=== PATIENT | female | born 1950 | race Caucasian/White ===

== ENCOUNTER → 2017-10-22 08:45 | Outpatient (CLI) | payer OTHER, SELFPAY ==
--- NOTE | 2017-10-26 16:16 | PM.PFT.1 ---
Pulmonary Function Test Referral & Results Date Patient Seen: 10/22/17 Requesting provider: Rodger Castillo Indication: Wheezing Results: The spirometry demonstrates an FVC of 1.95 L which is 65% of predicted. The FEV1 was measured at 1.30 L which is 57% of predicted. The FEV1/FVC ratio was 67 which is 80% of predicted. Following the administration of bronchodilator there was a 33% improvement in FEV1 and a 105% improvement in FEF 25-75% . Lung volumes show an SVC of 2.5 L which is 100% of predicted. The diffusing capacity was measured at 26.35 which is 111% of predicted. The maximum voluntary ventilation was reduced. Interpretation: This study demonstrates moderate obstructive lung disease with some evidence of benefit following bronchodilator particularly in small airway flow.
== END ==
PROVIDERS: Family Provider Family Medicine; PCP Family Medicine; Visit Provider Nurse Practitioner Family
DX: R06.02 Shortness of breath (principal); R06.2 Wheezing
CPT/HCPCS: 94010; 94060; 94726; 94729

== ENCOUNTER 2017-12-21 07:28 | Emergency (ER) | payer OTHER, SELFPAY ==
[2017-12-21] VITALS (9 sets, daily range): BP systolic 103–142; BP diastolic 56–99; PULSE 60–152; RESP 15–24; TEMP 36.8; O2SAT 95–100
--- NOTE | 2017-12-21 07:29 | ED.ARRPALP ---
HPI - Arrhythmia/Palpitations General Chief Complaint: Arrhythmia/Palpitations Stated Complaint: arrythmia issues Time Seen by Provider: 12/21/17 07:28 Source: patient Mode of arrival: ambulatory Limitations: no limitations History of Present Illness HPI narrative: 67-year-old female with history of asthma here for evaluation of palpitations. Patient states that 2 times in the past she has had similar symptoms was diagnosed with atrial fibrillation. She states that at those times she was given ?medicines through the IV ?that resolved her symptoms. She states she has never been admitted to the hospital for the symptoms. She states that this morning she woke up and took her dog for a walk. She states that this was unremarkable. Did not have any chest pain or shortness of breath or weakness or fatigue. She states that she got home and sat down on the couch and very shortly after that she started feeling the palpitations. Denies any chest pain or shortness of breath currently. Does take metoprolol at home for the atrial fibrillation prescribed by her port surveyor. She did take her metoprolol this morning. Related Data Home Medications Medication Instructions Recorded Confirmed COENZYME Q10 (COQ10) 150 mg PO Q DAY #0 03/28/12 11/02/17 Methylcobalamin (#[id number]) 1,000 mcg PO Q DAY #0 03/28/12 11/02/17 albuterol sulfate [Proventil HFA] 1 puff IH Q4HP PRN 12/21/17 12/21/17 Previous Rx's Medication Instructions Recorded fluticasone 44 mcg/actuation HFA 2 inhalation INHALATION Q12H #10.6 11/02/17 aerosol inhaler gram metoprolol succinate 50 mg PO QDAY #90 ter 11/09/17 Allergies Allergy/AdvReac Type Severity Reaction Status Date / Time Penicillins [PENICILLINS] Allergy Unknown Verified 12/21/17 07:57 Review of Systems Constitutional Denies chills, Denies fatigue, Denies fever(s), Denies headache(s), Denies lethargy and Denies malaise ENT Ears, Nose, Mouth, and Throat: Denies dizziness and Denies headache(s) Cardiovascular Denies chest pain, Denies chest pain at rest, Denies diaphoresis, Denies syncope, Reports rapid heart rate, Denies edema, Reports irregular heart rhythm, Denies leg ulcers, Denies leg edema, Reports palpitations and Denies dyspnea Respiratory Denies cough and Denies dyspnea Gastrointestinal Gastrointestinal: Denies abdominal pain, Denies diarrhea, Denies nausea and Denies vomiting Genitourinary Denies dysuria and Denies flank pain Musculoskeletal Denies myalgias and Denies arthralgias Neurologic Denies behavioral changes, Denies dizziness, Denies syncope, Denies headache(s) and Denies focal weakness Psychiatric Reports anxiety and Denies behavioral changes Endocrine Denies fatigue and Reports palpitations Hematologic/Lymphatic Denies easy bleeding and Denies easy bruising [facility] Social History Smoking Status: Never smoker Exam Initial Vital Signs Initial Vital Signs: Vital Signs Temperature 98.2 F 12/21/17 07:41 Pulse Rate 152 H 12/21/17 07:41 Respiratory Rate 24 12/21/17 07:41 Blood Pressure 139/99 H 12/21/17 07:41 Pulse Oximetry 100 12/21/17 07:41 Const General: cooperative, healthy appearing, comfortable, well developed, well groomed and No acute distress Nutritional Appearance: average body habitus Orientation: alert, awake and oriented x3 HENMT Head: normal to inspection, normocephalic and atraumatic Chest Chest: normal inspection of the chest Resp Effort & Inspection: normal respiratory effort Auscultation: clear to auscultation bilaterally Cardio Rate: tachycardic Rhythm: abnormal rhythm irregularly irregular Pulses: radial pulses present GI Inspection: non-distended Palpation: soft, No firm and No tender Back/Spine/Pelvis Back: No CVA tenderness Skin Lesions: no lesions Rashes: no rashes Neuro General: alert, awake and oriented x3 Cognition: normal cognition Speech: speech normal Gait: normal gait Motor: muscle tone normal throughout Sensory Exam: no sensory deficits noted Extrem General: normal to inspection and capillary refill normal Psych Appearance: grossly normal and well kempt Course Orders Ordered: ED Orders 12/21/17 07:29 EKG-12 Lead Stat 12/21/17 07:35 B Type Natriuretic Peptide Stat Complete Blood Count AUTO DIFF Stat Comprehensive Metabolic Panel Stat Lipase Stat Partial Thromboplastin Time Stat Prothrombin Time INR Stat Troponin I Stat Diltiazem HCl 125 mg/ Dextrose 125 mls @ 5 mls/hr IV TITRATE JOSE; Protocol Last Titration: 12/21/17 09:12 Dose: 0 mg/hr, 0 mls/hr Admin: 12/21/17 08:50 Dose: 5 mg/hr, 5 mls/hr Discontinued Medications Aspirin (Aspirin Chew) 324 mg PO NOW ONE Stop: 12/21/17 07:53 Last Admin: 12/21/17 08:02 Dose: 324 mg Diltiazem HCl (Cardizem) 20 mg IV NOW ONE Stop: 12/21/17 07:53 Last Admin: 12/21/17 07:57 Dose: 10 mg Sodium Chloride (Normal Saline 0.9%) 1,000 mls @ 1,000 mls/hr IV BOLUS ONE Stop: 12/21/17 08:51 Last Infusion: 12/21/17 09:12 Dose: 0 mls/hr Admin: 12/21/17 07:57 Dose: 1,000 mls/hr Vital Signs - 8 hr 12/21/17 07:41 12/21/17 07:57 12/21/17 08:10 Temperature 98.2 F Pulse Rate 152 H 152 H 104 H Respiratory Rate 24 16 Blood Pressure 139/99 H 132/94 H Blood Pressure [Left Arm] 142/93 H Pulse Oximetry 100 97 12/21/17 08:24 12/21/17 08:50 12/21/17 09:13 Temperature Pulse Rate 89 79 69 Respiratory Rate 15 20 Blood Pressure 124/73 H Blood Pressure [Left Arm] 141/63 H 103/56 L Pulse Oximetry 98 98 12/21/17 09:20 12/21/17 09:29 Temperature Pulse Rate 64 60 Respiratory Rate 16 15 Blood Pressure Blood Pressure [Left Arm] 106/62 110/62 Pulse Oximetry 95 98 MDM - Arrhythmia/Palpitations Medical Records Attestation: I reviewed the patient's medical records. Lab Data Attestation: I reviewed the patient's lab results. Result diagrams: 12/21/17 07:35 12/21/17 07:35 Lab Results 12/21/17 12/21/17 12/21/17 Range/Units 07:35 07:35 07:35 WBC 5.9 (4.5-11.0) X10^3/uL RBC 5.41 H (4.0-5.2) X10^6/uL Hgb 15.3 (12.0-16.0) g/dL Hct 45.4 (36-46) % MCV 84.0 (80-100) fL MCH 28.4 (26-34) PG MCHC 33.8 (30-36) % RDW 13.7 (11.6-14.8) % Plt Count 285 (150-400) X10^3/uL Neut % (Auto) 51.3 (50-75) % Lymph % (Auto) 36.1 (25-40) % [place] % (Auto) 8.7 (3-14) % Eos % (Auto) 2.9 (2-4) % Baso % (Auto) 1.0 (0-2) % Neut # (Auto) 3000 (7466-1917) /uL PT 10.6 (10.1-12.7) SECONDS INR 1.0 (0.9-1.3) APTT 34 (26.4-36.2) SECONDS Sodium 143 (137-145) mmol/L Potassium 3.6 (3.4-5.1) mmol/L Chloride 103 (98-107) mmol/L Carbon Dioxide 28 (22-32) mmol/L BUN 16 (7-17) mg/dL Creatinine 0.70 (0.52-1.04) mg/dL Estimated GFR > 60.0 (>60) mL/min BUN/Creatinine Ratio 22.9 H (6-22) Glucose 108 (80-110) mg/dL Calcium 9.9 (8.4-10.2) mg/dL Total Bilirubin 0.8 (0.2-1.3) mg/dL AST 27 (14-36) IU/L ALT 23 (9-52) IU/L Alkaline Phosphatase 124 (38-126) U/L Troponin I < 0.012 (0.01-0.034) ng/mL B-Natriuretic Peptide 57.6 (<100) Total Protein 8.0 (6.3-8.2) g/dL Albumin 4.7 (3.5-5.0) g/dL Globulin 3.3 (1.7-4.1) g/dL Albumin/Globulin Ratio 1.4 (1.0-2.8) Lipase 187 (23-300) U/L ECG Data Attestation: I personally reviewed and interpreted this ECG as follows: Prior ECG tracings: not available for review Interpretation: Atrial fibrillation Ventricular rate 152 Normal axis Normal QRS Nonspecific ST T wave changes Repeat EKG time 0921 hr Sinus rhythm First degree AV block as needed oval 347 milliseconds Ventricular rate is 66 Left axis deviation LVH No ST T wave changes MDM Narrative Medical decision making narrative: Upon arrival discussed patient's options to include rate control with IV medications versus rhythm control with cardioversion. Patient states that in the past she has converted with IV medications. She was given 2x 10 mg aliquots of Cardizem which decreased her heart rate significantly. She was started on a 5 mg drip of Cardizem however due to nursing air patient received the entire 25 mg of the Cardizem. Patient never became hypotensive. She did convert to sinus rhythm. She remained in sinus rhythm during observation here in the ER. Patient never had any chest pain. She is currently on 25 mg metoprolol daily. We did discuss her diagnosis. Informed her that this may come back. Informed her that she needed to contact her port surveyor to discuss any medication changes. She was given return precautions. She expressed understanding and agreement with plan. Discharge Plan Departure Patient Disposition: Home, Self-Care Clinical Impression: Atrial fibrillation Instructions: DI for Atrial Fibrillation Activity Restrictions/Additional Instructions: Continue all of your medications as directed. Call your port surveyor office today to schedule a follow-up in the next week. Return to the emergency department for any new or worsening symptoms Prescriptions: No Action COENZYME Q10 (COQ10) 150 mg PO Q DAY Qty: 0 RF: 0 Methylcobalamin (#[id number]) 1,000 mcg PO Q DAY Qty: 0 RF: 0 fluticasone [Flovent HFA] 44 mcg/actuation HFA aerosol inhaler 2 inhalation INHALATION Q12H Qty: 10.6 RF: 0 metoprolol succinate 50 mg tablet extended release 24 hr 50 mg PO QDAY Qty: 90 RF: 1 albuterol sulfate [Proventil HFA] 90 MCG/PUFF HFA aerosol inhaler 1 puff IH Q4HP PRN (Reason: Shortness Of Breath) RF: 0
[2017-12-21] MEDS: SODIUM CHLORIDE 0.9% 1,000 ML 1000 ML IV (07:57)
[2017-12-21] MEDS: dilTIAZem 25 MG/5 ML SDV 20 MG IV (07:57)
[2017-12-21] MEDS: ASPIRIN 81 MG TAB 324 MG PO (08:02)
[2017-12-21 08:07] LABS: PTT Partial Thromboplastin Tim 34 SECONDS (26.4-36.2); Prothrombin Time 10.6 SECONDS (10.1-12.7)
[2017-12-21 08:09] LABS: Add Manual Diff / Slide Review NO; Eosinophils Percent Auto 2.9 % (2-4); Hematocrit 45.4 % (36-46); Hemoglobin 15.3 g/dL (12.0-16.0); Lymphocytes Percent Auto 36.1 % (25-40); Mean Corpuscular HGB Conc 33.8 % (30-36); Mean Corpuscular Hemoglobin 28.4 PG (26-34); Monocytes Percent Auto 8.7 % (3-14); Neutrophils Absolute Auto 3000 /uL (3000-5900); Neutrophils Percent Auto 51.3 % (50-75); Platelet Count 285 X10^3/uL (150-400); Red Blood Cell Count 5.41 X10^6/uL (4.0-5.2); Red Cell Distribution Width 13.7 % (11.6-14.8); White Blood Cell Count 5.9 X10^3/uL (4.5-11.0)
[2017-12-21 08:12] LABS: Alanine Aminotransferase 23 IU/L (9-52); Albumin 4.7 g/dL (3.5-5.0); Albumin Globulin Ratio 1.4 (1.0-2.8); Alkaline Phosphatase 124 U/L (38-126); Aspartate Aminotransferase 27 IU/L (14-36); BUN Creatinine Ratio 22.9 (6-22); Bilirubin Total 0.8 mg/dL (0.2-1.3); Blood Urea Nitrogen 16 mg/dL (7-17); Calcium 9.9 mg/dL (8.4-10.2); Carbon Dioxide 28 mmol/L (22-32); Chloride 103 mmol/L (98-107); Estimated Glomerular Filt Rate > 60.0 mL/min (>60); Globulin 3.3 g/dL (1.7-4.1); Glucose 108 mg/dL (80-110); HEMOLYSIS < 15 (0-50); Lipase 187 U/L (23-300); Potassium 3.6 mmol/L (3.4-5.1); Sodium 143 mmol/L (137-145)
[2017-12-21 08:24] LABS: B Type Natriuretic Peptide 57.6 (<100); Troponin I < 0.012 ng/mL (0.01-0.034)
[2017-12-21] MEDS: dilTIAZem 125 MG in DEXTROSE 5 % IN WATER 100 ML IV (08:50)
== END 2017-12-21 10:54 | disposition home or self-care (01) ==
PROVIDERS: Emergency Provider Emergency Medicine; Family Provider Family Medicine; PCP Family Medicine
DX: I48.91 Unspecified atrial fibrillation (principal)
CPT/HCPCS: 36591; 80053; 83690; 83880; 84484; 85025; 85610; 85730; 93005; 93041; 96361; 96374; 96375; 99284

== ENCOUNTER → 2018-02-05 09:01 | Outpatient (CLI) | payer SELFPAY | PROVIDERS: Family Provider Family Medicine; PCP Family Medicine; Visit Provider Physician Assistant | DX: R10.9 Unspecified abdominal pain (principal) ==

== ENCOUNTER → 2018-02-05 09:15 | Outpatient (CLI) | payer OTHER, SELFPAY ==
[2018-02-05 10:03] LABS: Add Manual Diff / Slide Review NO; Basophils Percent Auto 0.3 % (0-2); Eosinophils Percent Auto 0.2 % (2-4); Hematocrit 41.3 % (36-46); Hemoglobin 13.9 g/dL (12.0-16.0); Lymphocytes Percent Auto 11.6 % (25-40); Mean Corpuscular HGB Conc 33.7 % (30-36); Mean Corpuscular Hemoglobin 27.4 PG (26-34); Mean Corpuscular Volume 81.4 fL (80-100); Monocytes Percent Auto 5.8 % (3-14); Neutrophils Absolute Auto 10800 /uL (3000-5900); Neutrophils Percent Auto 82.1 % (50-75); Platelet Count 359 X10^3/uL (150-400); Red Blood Cell Count 5.08 X10^6/uL (4.0-5.2); Red Cell Distribution Width 13.3 % (11.6-14.8); White Blood Cell Count 13.2 X10^3/uL (4.5-11.0)
[2018-02-05 10:11] LABS: Alanine Aminotransferase 24 IU/L (9-52); Albumin 4.4 g/dL (3.5-5.0); Albumin Globulin Ratio 1.3 (1.0-2.8); Alkaline Phosphatase 119 U/L (38-126); Aspartate Aminotransferase 22 IU/L (14-36); BUN Creatinine Ratio 18.6 (6-22); Bilirubin Total 0.9 mg/dL (0.2-1.3); Blood Urea Nitrogen 13 mg/dL (7-17); Calcium 9.7 mg/dL (8.4-10.2); Carbon Dioxide 29 mmol/L (22-32); Chloride 97 mmol/L (98-107); Estimated Glomerular Filt Rate > 60.0 mL/min (>60); Globulin 3.5 g/dL (1.7-4.1); Glucose 97 mg/dL (80-110); HEMOLYSIS < 15 (0-50); Lipase 105 U/L (23-300); Potassium 3.8 mmol/L (3.4-5.1); Sodium 140 mmol/L (137-145); Total Protein 7.9 g/dL (6.3-8.2)
[2018-02-05 10:54] LABS: Erythrocyte Sedimentation Rate 49 MM/HR (0-20)
== END ==
PROVIDERS: Family Provider Family Medicine; PCP Family Medicine; Visit Provider Physician Assistant
DX: R10.9 Unspecified abdominal pain (principal)
CPT/HCPCS: 36415; 80053; 83690; 85025; 85651; 87015; 87045; 87427; 87899

== ENCOUNTER → 2018-07-29 13:16 | Outpatient (CLI) | payer OTHER, SELFPAY ==
[2018-07-29 13:57] LABS: Add Manual Diff / Slide Review NO; Basophils Absolute Auto 0 /uL (0-100); Basophils Percent Auto 0.5 % (0-2); Eosinophils Absolute Auto 100 /uL (0-450); Eosinophils Percent Auto 1.1 % (2-4); Hematocrit 43.1 % (36-46); Hemoglobin 14.4 g/dL (12.0-16.0); Lymphocytes Absolute Auto 1700 /uL (1100-4500); Mean Corpuscular HGB Conc 33.4 % (30-36); Mean Corpuscular Hemoglobin 27.2 PG (26-34); Mean Corpuscular Volume 81.4 fL (80-100); Monocytes Absolute Auto 400 /uL (0-900); Monocytes Percent Auto 6.8 % (3-14); Neutrophils Absolute Auto 3600 /uL (1500-7000); Neutrophils Percent Auto 62.6 % (50-75); Platelet Count 317 X10^3/uL (150-400); Red Blood Cell Count 5.29 X10^6/uL (4.0-5.2); Red Cell Distribution Width 13.7 % (11.6-14.8); White Blood Cell Count 5.7 X10^3/uL (4.5-11.0)
[2018-07-29 14:07] LABS: Alanine Aminotransferase 21 IU/L (9-52); Albumin 4.7 g/dL (3.5-5.0); Albumin Globulin Ratio 1.3 (1.0-2.8); Alkaline Phosphatase 96 U/L (38-126); Amylase 49 U/L (30-110); Aspartate Aminotransferase 27 IU/L (14-36); BUN Creatinine Ratio 18.6 (6-22); Bilirubin Total 0.7 mg/dL (0.2-1.3); Blood Urea Nitrogen 13 mg/dL (7-17); Calcium 9.9 mg/dL (8.4-10.2); Carbon Dioxide 29 mmol/L (22-32); Chloride 101 mmol/L (98-107); Estimated Glomerular Filt Rate > 60.0 mL/min (>60); Globulin 3.5 g/dL (1.7-4.1); Glucose 89 mg/dL (80-110); HEMOLYSIS < 15 (0-50); Lipase 159 U/L (23-300); Sodium 140 mmol/L (137-145); Total Protein 8.2 g/dL (6.3-8.2)
[2018-07-29 16:30] LABS: Clostridium Difficile Tox PCR Negative for C. diff
== END ==
PROVIDERS: Family Provider Family Medicine; PCP Family Medicine; Visit Provider Physician Assistant
DX: R19.7 Diarrhea, unspecified (principal)
CPT/HCPCS: 36415; 80053; 82150; 83690; 85025; 87015; 87045; 87177; 87427; 87493; 87899

== ENCOUNTER 2019-02-14 15:19 | Inpatient (IN) | payer OTHER, MEDICARE, SELFPAY ==
[2019-02-14 15:21] VITALS: BP 146/73; PULSE 88; RESP 16; TEMP 38.4; O2SAT 100
[2019-02-14 15:50] LABS: Add Manual Diff / Slide Review NO; Basophils Absolute Auto 0 /uL (0-100); Basophils Percent Auto 0.3 % (0-2); Eosinophils Absolute Auto 0 /uL (0-450); Eosinophils Percent Auto 0.3 % (2-4); Hematocrit 40.3 % (36-46); Hemoglobin 13.7 g/dL (12.0-16.0); Lymphocytes Absolute Auto 1400 /uL (1100-4500); Mean Corpuscular Hemoglobin 27.2 PG (26-34); Monocytes Absolute Auto 600 /uL (0-900); Monocytes Percent Auto 6.2 % (3-14); Neutrophils Absolute Auto 8400 /uL (1500-7000); Neutrophils Percent Auto 80.2 % (50-75); Platelet Count 354 X10^3/uL (150-400); Red Blood Cell Count 5.04 X10^6/uL (4.0-5.2); Red Cell Distribution Width 13.4 % (11.6-14.8); White Blood Cell Count 10.5 X10^3/uL (4.5-11.0)
[2019-02-14 16:02] LABS: Albumin 4.4 g/dL (3.5-5.0); Alkaline Phosphatase 138 U/L (38-126); Aspartate Aminotransferase 21 IU/L (14-36); BUN Creatinine Ratio 21.4 (6-22); Blood Urea Nitrogen 15 mg/dL (7-17); Calcium 9.9 mg/dL (8.4-10.2); Carbon Dioxide 29 mmol/L (22-32); Chloride 97 mmol/L (98-107); Estimated Glomerular Filt Rate > 60.0 mL/min (>60); Globulin 4.2 g/dL (1.7-4.1); Glucose 85 mg/dL (80-110); HEMOLYSIS < 15 (0-50); Lipase 97 U/L (23-300); Potassium 4.1 mmol/L (3.4-5.1); Sodium 137 mmol/L (137-145); Total Protein 8.6 g/dL (6.3-8.2)
[2019-02-14 16:03] LABS: Lactate (Lactic Acid) 1.1 mmol/L (0.7-2.1)
[2019-02-14 16:04] LABS: Alanine Aminotransferase < 6 IU/L (9-52)
--- NOTE | 2019-02-14 16:25 | DI.CT.S_ITS ---
PROCEDURE: CT ABDOMEN PELVIS W CON INDICATIONS: low abdominal pain with nausea, chills, fever TECHNIQUE: After the administration of intravenous contrast, 5 mm thick sections acquired from the diaphragm to the symphysis. 5 mm coronal and sagittal reformats were acquired. For radiation dose reduction, the following was used: automated exposure control, adjustment of mA and/or kV according to patient size. COMPARISON: None. FINDINGS: Image quality: Excellent. ABDOMEN: Lung bases: Lung bases are clear. Heart size is normal. Small to moderate hiatal hernia. Solid organs: Liver is normal in size and enhancement but there are 2 liver lesions. The first is located superiorly near the junction of the right and left hepatic lobes seen on series 2 image 12 and measuring up to 9 mm in maximal axial dimension this has discontinuous peripheral nodular enhancement and is highly likely to represent a benign hepatic hemangioma. The second lesion is indeterminate, located subcapsular on the right at the middle third of the liver parenchyma, having a maximal axial dimension of 2.4 cm and measuring up to 43 Hounsfield units internally. Definite discontinuous peripheral nodular enhancement characteristic of hemangioma is not found. This may, however, represent a hemangioma despite this circumstance. Gallbladder contains a small densely calcified 4 mm stone, without biliary obstruction or evidence of acute cholecystitis.. Biliary system is non dilated. Pancreas enhances normally. Spleen is normal in size and enhancement. No adrenal nodules. Kidneys demonstrate normal size and enhancement, without hydronephrosis on the left but there is hydronephrosis on the right which extends to include a hydroureter on the right and ureteral soft tissue thickening. This pattern extends inferiorly through approximately 2/3 of the length of the right ureter and a calculus is then identified impacted within the pelvic portion of the ureter where a 326 Hounsfield unit 3 x 4 mm calculus is present. Peritoneum and bowel: Bowel loops demonstrate normal wall thickness and caliber. No free fluid or air. Nodes and vessels: No retroperitoneal or mesenteric adenopathy by size criteria. Aorta and inferior vena cava are normal in size. Miscellaneous: No ventral hernias. PELVIS: Genitourinary: Bladder wall thickness is normal. Miscellaneous: No inguinal hernias or adenopathy. Note is made of peritoneal inflammation and thickening, and colonic mural thickening and hyperemia with an appearance consistent with active diverticulitis but without peridiverticular abscess. Inflammatory colitis appears present, likely reactive and associated with chronic diverticulitis. Bones: No suspicious bony lesions. No vertebral body compression fractures. IMPRESSION: 1. Chronic diverticulitis, active, without peridiverticular abscess. Segmental thickening of the sigmoid colon bowel wall is present consistent with chronic colitis superimposed, and the likelihood of malignancy in this area is considered low. Quality of visualization, however, is somewhat limited due to the chronic inflammatory change rendering the tissue margins indistinct. 2. A second acute/chronic issu is the presence of relatively prominent right-sided hydronephrosis and hydroureter with ureteral wall thickening to the level of the impacted 3 x 4 mm calculus at the upper pelvis level of the course of the right ureter. The degree of ureteral thickening indicates that this impaction is long-standing and urology consultation is recommended to determine whether ureteral stent placement is warranted at this time. 3. Within the liver parenchyma there are 2 separate lesions which each likely represents a hemangioma. However, only the smaller more superior lesion reaches CT criteria diagnostic for representing a hemangioma. The larger of the 2 lesions is more inferior, and should be assessed utilizing targeted ultrasound to determine whether sonographic characterization can establish hemangioma also as the underlying cause. Sequential followup by ultrasound may become necessary depending on the findings of the initial ultrasound. Dictated by: Demetrio Pham M.D. on 02/14/2019 at 17:44 Approved by: Demetrio Pham M.D. on 02/14/2019 at 17:54
--- NOTE | 2019-02-14 16:30 | ED.ABDPAIN ---
HPI - Abdominal Pain <SINGH Kirby - Last Filed: 02/14/19 22:18> General Chief Complaint: Abdominal Pain Stated Complaint: UTI/continuting ABD and intenstinal issues Time Seen by Provider: 02/14/19 15:30 Source: patient Mode of arrival: ambulatory Limitations: no limitations History of Present Illness HPI narrative: This is a 68-year-old female, nonsmoker, presents to ED with lower abdominal pain, nausea, decreased appetite, chills for last 1 week. Patient was referred from walk-in clinic today after she was evaluated by abdominal pain that has been going on for last 1 year for on and off which has been severe and more consistent for last week. Patient reports her stool has been altered, it appears to be flaky and fibrous, and at times very thin and stringy. Patient had sigmoid scope that was done when she was 48-year-old with normal results and was told to repeated exam in 10 year which she had not followed up. She denies any family history of colon cancer. She also reports urinary frequency with low abdominal pain and feeling tight in urethra when she is almost done with urination. Patient did not know had fever but she was told that she has fever in ED. Patient was told that she has colitis about a year ago but she has been tried to treat this condition with out prescribed antibiotic medications. Patient denies blood in your urine, flank pain. At times, after bowel movements she noticed red discoloration paper tissue and is not sure whether this is blood. Related Data Home Medications Medication Instructions Recorded Confirmed coenzyme Q10 [Co Q-10] 200 mg PO DAILY #0 03/28/12 02/15/19 albuterol sulfate [Proventil HFA] 1 puff IH Q4HP PRN 12/21/17 02/15/19 metoprolol succinate 50 mg 25 mg PO BID tab 08/23/18 02/16/19 tablet,extended release 24 hr Previous Rx's Medication Instructions Recorded fluticasone propionate 44 2 inhalation INHALATION Q12H #10.6 11/02/17 mcg/actuation HFA aerosol inhaler gram alprazolam 0.5 mg tablet See Rx Instructions PO BID PRN #20 12/28/17 tab cefuroxime axetil 500 mg PO BID #22 tab 02/18/19 metronidazole 500 mg PO TID #33 tab 02/18/19 ondansetron 4 mg PO Q8H PRN #30 tab 02/18/19 tamsulosin [Flomax] 0.4 mg PO DAILY #30 cap 02/18/19 Allergies Allergy/AdvReac Type Severity Reaction Status Date / Time Penicillins [PENICILLINS] Allergy Unknown Verified 10/11/18 09:34 ciprofloxacin [From Cipro] AdvReac Verified 10/11/18 09:34 Review of Systems <SINGH Kirby - Last Filed: 02/14/19 22:18> Review of Systems Narrative: General: The HPI HEENT: Denies sinus pain, ear pain, sore throat, difficulty swallowing, dizziness. Respiratory: Denies dyspnea, cough, wheezing, hemoptysis, sputum. Cardiovascular: Denies chest pain, palpitations, orthopnea, edema. Gastrointestinal: See HPI : See HPI Musculoskeletal: Denies weakness, joint pain or bony pain. Skin: Denies rash, skin lesions, or other. Neurologic: Denies weakness, headache, numbness, change in speech, confusion, seizures, incoordination. Psychiatric: No concerning psychosocial issues. 12-point review of systems is negative except for those stated above. PFSH <SINGH Kirby - Last Filed: 02/14/19 22:18> Medical History (Updated 02/18/19 @ 09:30 by Devon Pemberton MD) Anxiety about health (Chronic) Atrial fibrillation (Chronic) Benign essential HTN (Chronic) Diverticulitis (Chronic) Hemangioma of liver (Chronic) Hydronephrosis with urinary obstruction due to renal calculus (Chronic) Hyperlipidemia, unspecified (Chronic) Menopause (Inactive) Osteoporosis, unspecified (Chronic) Panic disorder (Chronic 03/26/11) Family History (Updated 02/15/19 @ 14:37 by Jason Morales MD) Father Cancer Social History household members: spouse Smoking Status: Never smoker alcohol intake: never substance use type: does not use Family History (Updated 02/15/19 @ 14:37 by Jason Morales MD) Father Cancer Social History household members: spouse Smoking Status: Never smoker alcohol intake: never substance use type: does not use Exam <Iraj SINGH Person - Last Filed: 02/14/19 22:18> Narrative Exam Narrative: GEN: Alert, oriented x 3, well appearing and nourished, and in no acute distress. Head: Normal cephalic, atraumatic. No scalp or temporal tenderness, palpable mass or rash. EYES: Pupils are equal, round, and reactive to light and accommodation. Extraocular muscles are intact bilaterally. There is no subconjunctival hemorrhage, exudate and sclera non-icteric. ENT: Bilateral auditory canals and tympanic membranes clear. Hearing grossly intact. Nose without bleeding, purulent discharge or deviation. Facial sinuses nontender to palpate. Mucous membrane moist, no mucosal lesion. Throat without erythema, tonsillar hypertrophy or exudate. Uvula in midline, airway patent. Neck: Trachea in midline. No JVD, non-tender without lymphadenopathy. No masses or thyroid megaly. Supple, non-tender and no meningeal signs. CARDIAC: Normal regular rate and rhythm without murmurs, gallops, or rubs. No chest wall tenderness. No peripheral edema, cyanosis or pallor. Capillary refill is less than 2 seconds. RESPIRATORY: Lungs are cleat to auscultate bilaterally. No cough, wheezes, rales, or rhonchi. No stridor, respiratory distress, increase work of breathing, or accessary muscle used. ABD: Tender to palpate in bilateral lower abdomen. Abdomen soft and non-distended. No guarding. rebound tenderness to palpate bilateral lower abdomen. Bowel sounds are normal in all 4 quadrants. There is no palpable masses or organomegaly. EXT: Full painless ROM of all extremities with no loss of sensation, strength, effusion or edema. SKIN: Warm, dry, normal color for patient. No erythema, lesions or rash over visible areas. BACK: Nontender without deformity or crepitance. No flank tenderness. NEUROLOGICAL: Alert and oriented to place, time and person. Sensation and motor function intact bilaterally. No facial droops, dysphasia. PSYCHIATRIC: Good judgement and reason, without hallucinations, abnormal affect or abnormal behaviors during the examination. Initial Vital Signs Initial Vital Signs: Vital Signs Temperature 101.1 F H 02/14/19 15:21 Pulse Rate 88 02/14/19 15:21 Respiratory Rate 16 02/14/19 15:21 Blood Pressure 146/73 H 02/14/19 15:21 Pulse Oximetry 100 02/14/19 15:21 <Loco Mann DO - Last Filed: 02/22/19 19:14> Initial Vital Signs Initial Vital Signs: Vital Signs Temperature 101.1 F H 02/14/19 15:21 Pulse Rate 88 02/14/19 15:21 Respiratory Rate 16 02/14/19 15:21 Blood Pressure 146/73 H 02/14/19 15:21 Pulse Oximetry 100 02/14/19 15:21 Course <Iraj CarverSINGH Vargas - Last Filed: 02/14/19 22:18> Orders Ordered: Discontinued Medications Acetaminophen (Tylenol) 975 mg PO NOW ONE Stop: 02/14/19 22:03 Last Admin: 02/14/19 23:04 Dose: 975 mg Documented by: JORGE Acetaminophen (Tylenol) 650 mg PO Q4HR PRN PRN Reason: As Needed for Fever/Mild Pain Last Admin: 02/18/19 10:09 Dose: 650 mg Documented by: Admin: 02/17/19 18:30 Dose: 650 mg Documented by: Admin: 02/17/19 08:31 Dose: 650 mg Documented by: Admin: 02/16/19 20:00 Dose: 650 mg Documented by: CHAPARRITA Hydrocodone Bitart/Acetaminophen ([place] 5/325) 1 tab PO PRN PRN PRN Reason: Pain, Moderate (4-6) Albuterol (Ventolin Hfa) 1 puff INH Q4H PRN PRN Reason: Shortness Of Breath Alprazolam (Xanax) 0.5 mg PO BID PRN PRN Reason: anxiety Alprazolam (Xanax) 0.5 mg PO BID PRN PRN Reason: anxiety Last Admin: 02/17/19 20:38 Dose: 0.25 mg Documented by: Admin: 02/16/19 16:47 Dose: 0.25 mg Documented by: Admin: 02/15/19 13:54 Dose: 0.25 mg Documented by: CHIDI Enoxaparin Sodium (Lovenox) 40 mg SUBCUT DAILY JOSE Last Admin: 02/15/19 13:04 Dose: Not Given Documented by: CHIDI Enoxaparin Sodium (Lovenox) 40 mg SUBCUT DAILY [facility] Last Admin: 02/16/19 08:54 Dose: Not Given Documented by: Admin: 02/15/19 12:18 Dose: Not Given Documented by: CHIDI Fluticasone Propionate (Flovent Hfa) 2 puff INH Q12H [facility] Last Admin: 02/18/19 08:11 Dose: Not Given Documented by: Admin: 02/17/19 20:07 Dose: Not Given Documented by: Admin: 02/17/19 09:47 Dose: Not Given Documented by: Admin: 02/16/19 19:38 Dose: Not Given Documented by: Admin: 02/16/19 09:01 Dose: Not Given Documented by: Admin: 02/15/19 23:00 Dose: Not Given Documented by: Admin: 02/15/19 12:25 Dose: Not Given Documented by: Admin: 02/14/19 23:54 Dose: Not Given Documented by: MARGARITA Sodium Chloride (Normal Saline 0.9%) 1,000 mls @ 1,000 mls/hr IV BOLUS ONE Stop: 02/14/19 17:24 Last Infusion: 02/14/19 17:41 Dose: 0 mls/hr Documented by: CAROLAPPavan Admin: 02/14/19 16:36 Dose: 1,000 mls/hr Documented by: SCANAPO Sodium Chloride (Normal Saline 0.9%) 1,000 mls @ 125 mls/hr IV CONT [facility] Last Admin: 02/18/19 06:04 Dose: 125 mls/hr Documented by: Infusion: 02/18/19 04:41 Dose: 125 mls/hr Documented by: Admin: 02/17/19 20:41 Dose: 125 mls/hr Documented by: Infusion: 02/17/19 19:19 Dose: 125 mls/hr Documented by: Admin: 02/17/19 11:19 Dose: 125 mls/hr Documented by: Infusion: 02/17/19 07:33 Dose: 125 mls/hr Documented by: Admin: 02/16/19 23:33 Dose: 125 mls/hr Documented by: Infusion: 02/16/19 22:47 Dose: 125 mls/hr Documented by: Admin: 02/16/19 14:47 Dose: 125 mls/hr Documented by: Infusion: 02/16/19 11:33 Dose: 125 mls/hr Documented by: Admin: 02/16/19 03:33 Dose: 125 mls/hr Documented by: Infusion: 02/16/19 00:59 Dose: 125 mls/hr Documented by: Admin: 02/15/19 16:59 Dose: 125 mls/hr Documented by: Infusion: 02/15/19 15:28 Dose: 125 mls/hr Documented by: Admin: 02/15/19 07:28 Dose: 125 mls/hr Documented by: Infusion: 02/15/19 07:28 Dose: 125 mls/hr Documented by: Admin: 02/15/19 00:03 Dose: 125 mls/hr Documented by: MARGARITA Ceftriaxone Sodium/Dextrose (Rocephin) 1 gm in 50 mls @ 100 mls/hr IV Q12H [facility] Last Infusion: 02/15/19 01:25 Dose: 0 mls/hr Documented by: Admin: 02/15/19 00:04 Dose: 100 mls/hr Documented by: MARGARITA Metronidazole (Flagyl) 500 mg in 100 mls @ 100 mls/hr IV Q6H [facility] Last Admin: 02/15/19 13:05 Dose: Not Given Documented by: CHIDI Ceftriaxone Sodium/Dextrose (Rocephin) 2 gm in 50 mls @ 100 mls/hr IV Q12H [facility] Last Admin: 02/15/19 13:03 Dose: Not Given Documented by: CHIDI Metronidazole (Flagyl) 500 mg in 100 mls @ 100 mls/hr IV Q6H [facility] Last Infusion: 02/18/19 08:31 Dose: 0 mls/hr Documented by: BINHFARRodriguez Admin: 02/18/19 06:04 Dose: 100 mls/hr Documented by: Infusion: 02/18/19 01:16 Dose: 0 mls/hr Documented by: Admin: 02/18/19 00:03 Dose: 100 mls/hr Documented by: Infusion: 02/17/19 20:29 Dose: 100 mls/hr Documented by: Admin: 02/17/19 18:26 Dose: 100 mls/hr Documented by: Infusion: 02/17/19 14:06 Dose: 100 mls/hr Documented by: Admin: 02/17/19 13:06 Dose: 100 mls/hr Documented by: Infusion: 02/17/19 07:38 Dose: 0 mls/hr Documented by: Admin: 02/17/19 05:43 Dose: 100 mls/hr Documented by: Infusion: 02/17/19 01:37 Dose: 0 mls/hr Documented by: Admin: 02/16/19 23:34 Dose: 100 mls/hr Documented by: Infusion: 02/16/19 20:26 Dose: 100 mls/hr Documented by: Infusion: 02/16/19 19:29 Dose: 100 mls/hr Documented by: Admin: 02/16/19 18:39 Dose: 100 mls/hr Documented by: Infusion: 02/16/19 14:00 Dose: 100 mls/hr Documented by: Admin: 02/16/19 12:51 Dose: 100 mls/hr Documented by: Infusion: 02/16/19 08:54 Dose: 100 mls/hr Documented by: Admin: 02/16/19 07:06 Dose: 100 mls/hr Documented by: Infusion: 02/16/19 01:13 Dose: 0 mls/hr Documented by: Admin: 02/16/19 00:13 Dose: 100 mls/hr Documented by: Infusion: 02/15/19 21:32 Dose: 100 mls/hr Documented by: Admin: 02/15/19 18:23 Dose: 100 mls/hr Documented by: Infusion: 02/15/19 13:44 Dose: 0 mls/hr Documented by: JIMENAVAJasmin Admin: 02/15/19 12:17 Dose: 100 mls/hr Documented by: LHROVAT Ceftriaxone Sodium/Dextrose (Rocephin) 2 gm in 50 mls @ 100 mls/hr IV Q12H [facility] Last Infusion: 02/18/19 08:35 Dose: 0 mls/hr Documented by: Admin: 02/18/19 01:16 Dose: 100 mls/hr Documented by: Infusion: 02/17/19 14:59 Dose: 100 mls/hr Documented by: Admin: 02/17/19 14:29 Dose: 100 mls/hr Documented by: Infusion: 02/17/19 13:07 Dose: 0 mls/hr Documented by: Admin: 02/17/19 01:14 Dose: 100 mls/hr Documented by: Infusion: 02/16/19 12:51 Dose: 100 mls/hr Documented by: Admin: 02/16/19 11:56 Dose: 100 mls/hr Documented by: Infusion: 02/16/19 01:39 Dose: 0 mls/hr Documented by: Admin: 02/16/19 01:09 Dose: 100 mls/hr Documented by: Infusion: 02/15/19 15:07 Dose: 100 mls/hr Documented by: Admin: 02/15/19 14:37 Dose: 100 mls/hr Documented by: CHIDI Ketorolac Tromethamine (Toradol) 30 mg IV NOW ONE Stop: 02/14/19 16:40 Last Admin: 02/14/19 16:56 Dose: 30 mg Documented by: MARCIO Metoprolol Succinate (Toprol Xl) 50 mg PO BID [facility] Last Admin: 02/15/19 13:04 Dose: Not Given Documented by: CHIDI Metoprolol Succinate (Toprol Xl) 50 mg PO BID [facility] Last Admin: 02/16/19 08:50 Dose: 25 mg Documented by: Admin: 02/15/19 21:40 Dose: 50 mg Documented by: Admin: 02/15/19 12:25 Dose: Not Given Documented by: CHIDI Metoprolol Succinate (Toprol Xl) 25 mg PO BID [facility] Last Admin: 02/18/19 08:34 Dose: 25 mg Documented by: Admin: 02/17/19 20:35 Dose: 25 mg Documented by: Admin: 02/17/19 08:30 Dose: 25 mg Documented by: Admin: 02/16/19 20:31 Dose: 25 mg Documented by: Admin: 02/16/19 11:28 Dose: Not Given Documented by: BRENDA Metronidazole (Metronidazole) 500 mg PO NOW ONE Stop: 02/14/19 18:20 Last Admin: 02/14/19 18:28 Dose: 500 mg Documented by: MARCIO Metronidazole (Metronidazole) 500 mg PO TID [facility] Last Admin: 02/15/19 01:49 Dose: 500 mg Documented by: MARGARITA Ondansetron HCl (Zofran) 4 mg IV NOW ONE Stop: 02/14/19 16:26 Last Admin: 02/14/19 16:36 Dose: 4 mg Documented by: MARCIO Ondansetron HCl (Zofran) 4 mg IV Q6HR PRN PRN Reason: Nausea And Vomiting Last Admin: 02/18/19 06:04 Dose: 4 mg Documented by: Admin: 02/18/19 00:03 Dose: 4 mg Documented by: Admin: 02/17/19 14:29 Dose: 4 mg Documented by: OTTO Tamsulosin HCl (Flomax) 0.4 mg PO DAILY [facility] Last Admin: 02/18/19 08:34 Dose: 0.4 mg Documented by: Admin: 02/17/19 08:30 Dose: 0.4 mg Documented by: Admin: 02/16/19 08:53 Dose: 0.4 mg Documented by: BRENDA Trimethoprim/Sulfamethoxazole (Bactrim Ds) 1 tab PO NOW ONE Stop: 02/14/19 18:20 Last Admin: 02/14/19 18:28 Dose: 1 tab Documented by: MARCIO Vital Signs Vital signs: Vital Signs - 8 hr 02/14/19 15:21 02/14/19 17:33 02/14/19 19:40 Temperature 101.1 F H Pulse Rate 88 75 77 Respiratory Rate 16 14 Blood Pressure 146/73 H Blood Pressure [Left Arm] 126/55 L 115/50 L Pulse Oximetry 100 99 97 <Loco Mann DO - Last Filed: 02/22/19 19:14> Orders Ordered: Discontinued Medications Acetaminophen (Tylenol) 975 mg PO NOW ONE Stop: 02/14/19 22:03 Last Admin: 02/14/19 23:04 Dose: 975 mg Documented by: JORGE Acetaminophen (Tylenol) 650 mg PO Q4HR PRN PRN Reason: As Needed for Fever/Mild Pain Last Admin: 02/18/19 10:09 Dose: 650 mg Documented by: Admin: 02/17/19 18:30 Dose: 650 mg Documented by: Admin: 02/17/19 08:31 Dose: 650 mg Documented by: Admin: 02/16/19 20:00 Dose: 650 mg Documented by: CHAPARRITA Hydrocodone Bitart/Acetaminophen ([place] 5/325) 1 tab PO PRN PRN PRN Reason: Pain, Moderate (4-6) Albuterol (Ventolin Hfa) 1 puff INH Q4H PRN PRN Reason: Shortness Of Breath Alprazolam (Xanax) 0.5 mg PO BID PRN PRN Reason: anxiety Alprazolam (Xanax) 0.5 mg PO BID PRN PRN Reason: anxiety Last Admin: 02/17/19 20:38 Dose: 0.25 mg Documented by: Admin: 02/16/19 16:47 Dose: 0.25 mg Documented by: Admin: 02/15/19 13:54 Dose: 0.25 mg Documented by: CHIDI Enoxaparin Sodium (Lovenox) 40 mg SUBCUT DAILY [facility] Last Admin: 02/15/19 13:04 Dose: Not Given Documented by: CHIDI Enoxaparin Sodium (Lovenox) 40 mg SUBCUT DAILY [facility] Last Admin: 02/16/19 08:54 Dose: Not Given Documented by: Admin: 02/15/19 12:18 Dose: Not Given Documented by: CHIDI Fluticasone Propionate (Flovent Hfa) 2 puff INH Q12H [facility] Last Admin: 02/18/19 08:11 Dose: Not Given Documented by: Admin: 02/17/19 20:07 Dose: Not Given Documented by: Admin: 02/17/19 09:47 Dose: Not Given Documented by: Admin: 02/16/19 19:38 Dose: Not Given Documented by: Admin: 02/16/19 09:01 Dose: Not Given Documented by: Admin: 02/15/19 23:00 Dose: Not Given Documented by: Admin: 02/15/19 12:25 Dose: Not Given Documented by: Admin: 02/14/19 23:54 Dose: Not Given Documented by: MARGARITA Sodium Chloride (Normal Saline 0.9%) 1,000 mls @ 1,000 mls/hr IV BOLUS ONE Stop: 02/14/19 17:24 Last Infusion: 02/14/19 17:41 Dose: 0 mls/hr Documented by: Admin: 02/14/19 16:36 Dose: 1,000 mls/hr Documented by: SCANAPO Sodium Chloride (Normal Saline 0.9%) 1,000 mls @ 125 mls/hr IV CONT JOSE Last Admin: 02/18/19 06:04 Dose: 125 mls/hr Documented by: Infusion: 02/18/19 04:41 Dose: 125 mls/hr Documented by: Admin: 02/17/19 20:41 Dose: 125 mls/hr Documented by: Infusion: 02/17/19 19:19 Dose: 125 mls/hr Documented by: Admin: 02/17/19 11:19 Dose: 125 mls/hr Documented by: Infusion: 02/17/19 07:33 Dose: 125 mls/hr Documented by: Admin: 02/16/19 23:33 Dose: 125 mls/hr Documented by: Infusion: 02/16/19 22:47 Dose: 125 mls/hr Documented by: Admin: 02/16/19 14:47 Dose: 125 mls/hr Documented by: Infusion: 02/16/19 11:33 Dose: 125 mls/hr Documented by: Admin: 02/16/19 03:33 Dose: 125 mls/hr Documented by: Infusion: 02/16/19 00:59 Dose: 125 mls/hr Documented by: Admin: 02/15/19 16:59 Dose: 125 mls/hr Documented by: Infusion: 02/15/19 15:28 Dose: 125 mls/hr Documented by: Admin: 02/15/19 07:28 Dose: 125 mls/hr Documented by: Infusion: 02/15/19 07:28 Dose: 125 mls/hr Documented by: Admin: 02/15/19 00:03 Dose: 125 mls/hr Documented by: MARGARITA Ceftriaxone Sodium/Dextrose (Rocephin) 1 gm in 50 mls @ 100 mls/hr IV Q12H [facility] Last Infusion: 02/15/19 01:25 Dose: 0 mls/hr Documented by: Admin: 02/15/19 00:04 Dose: 100 mls/hr Documented by: MARGARITA Metronidazole (Flagyl) 500 mg in 100 mls @ 100 mls/hr IV Q6H [facility] Last Admin: 02/15/19 13:05 Dose: Not Given Documented by: CHIDI Ceftriaxone Sodium/Dextrose (Rocephin) 2 gm in 50 mls @ 100 mls/hr IV Q12H [facility] Last Admin: 02/15/19 13:03 Dose: Not Given Documented by: CHIDI Metronidazole (Flagyl) 500 mg in 100 mls @ 100 mls/hr IV Q6H [facility] Last Infusion: 02/18/19 08:31 Dose: 0 mls/hr Documented by: Admin: 02/18/19 06:04 Dose: 100 mls/hr Documented by: Infusion: 02/18/19 01:16 Dose: 0 mls/hr Documented by: Admin: 02/18/19 00:03 Dose: 100 mls/hr Documented by: Infusion: 02/17/19 20:29 Dose: 100 mls/hr Documented by: Admin: 02/17/19 18:26 Dose: 100 mls/hr Documented by: Infusion: 02/17/19 14:06 Dose: 100 mls/hr Documented by: Admin: 02/17/19 13:06 Dose: 100 mls/hr Documented by: Infusion: 02/17/19 07:38 Dose: 0 mls/hr Documented by: Admin: 02/17/19 05:43 Dose: 100 mls/hr Documented by: Infusion: 02/17/19 01:37 Dose: 0 mls/hr Documented by: Admin: 02/16/19 23:34 Dose: 100 mls/hr Documented by: Infusion: 02/16/19 20:26 Dose: 100 mls/hr Documented by: Infusion: 02/16/19 19:29 Dose: 100 mls/hr Documented by: Admin: 02/16/19 18:39 Dose: 100 mls/hr Documented by: Infusion: 02/16/19 14:00 Dose: 100 mls/hr Documented by: Admin: 02/16/19 12:51 Dose: 100 mls/hr Documented by: Infusion: 02/16/19 08:54 Dose: 100 mls/hr Documented by: Admin: 02/16/19 07:06 Dose: 100 mls/hr Documented by: Infusion: 02/16/19 01:13 Dose: 0 mls/hr Documented by: Admin: 02/16/19 00:13 Dose: 100 mls/hr Documented by: Infusion: 02/15/19 21:32 Dose: 100 mls/hr Documented by: Admin: 02/15/19 18:23 Dose: 100 mls/hr Documented by: Infusion: 02/15/19 13:44 Dose: 0 mls/hr Documented by: Admin: 02/15/19 12:17 Dose: 100 mls/hr Documented by: CHIDI Ceftriaxone Sodium/Dextrose (Rocephin) 2 gm in 50 mls @ 100 mls/hr IV Q12H [facility] Last Infusion: 02/18/19 08:35 Dose: 0 mls/hr Documented by: Admin: 02/18/19 01:16 Dose: 100 mls/hr Documented by: Infusion: 02/17/19 14:59 Dose: 100 mls/hr Documented by: Admin: 02/17/19 14:29 Dose: 100 mls/hr Documented by: Infusion: 02/17/19 13:07 Dose: 0 mls/hr Documented by: Admin: 02/17/19 01:14 Dose: 100 mls/hr Documented by: Infusion: 02/16/19 12:51 Dose: 100 mls/hr Documented by: Admin: 02/16/19 11:56 Dose: 100 mls/hr Documented by: Infusion: 02/16/19 01:39 Dose: 0 mls/hr Documented by: Admin: 02/16/19 01:09 Dose: 100 mls/hr Documented by: Infusion: 02/15/19 15:07 Dose: 100 mls/hr Documented by: Admin: 02/15/19 14:37 Dose: 100 mls/hr Documented by: CHIDI Ketorolac Tromethamine (Toradol) 30 mg IV NOW ONE Stop: 02/14/19 16:40 Last Admin: 02/14/19 16:56 Dose: 30 mg Documented by: MARCIO Metoprolol Succinate (Toprol Xl) 50 mg PO BID [facility] Last Admin: 02/15/19 13:04 Dose: Not Given Documented by: CHIDI Metoprolol Succinate (Toprol Xl) 50 mg PO BID [facility] Last Admin: 02/16/19 08:50 Dose: 25 mg Documented by: Admin: 02/15/19 21:40 Dose: 50 mg Documented by: Admin: 02/15/19 12:25 Dose: Not Given Documented by: CHIDI Metoprolol Succinate (Toprol Xl) 25 mg PO BID [facility] Last Admin: 02/18/19 08:34 Dose: 25 mg Documented by: Admin: 02/17/19 20:35 Dose: 25 mg Documented by: Admin: 02/17/19 08:30 Dose: 25 mg Documented by: Admin: 02/16/19 20:31 Dose: 25 mg Documented by: Admin: 02/16/19 11:28 Dose: Not Given Documented by: BRENDA Metronidazole (Metronidazole) 500 mg PO NOW ONE Stop: 02/14/19 18:20 Last Admin: 02/14/19 18:28 Dose: 500 mg Documented by: MARCIO Metronidazole (Metronidazole) 500 mg PO TID [facility] Last Admin: 02/15/19 01:49 Dose: 500 mg Documented by: MARGARITA Ondansetron HCl (Zofran) 4 mg IV NOW ONE Stop: 02/14/19 16:26 Last Admin: 02/14/19 16:36 Dose: 4 mg Documented by: MARCIO Ondansetron HCl (Zofran) 4 mg IV Q6HR PRN PRN Reason: Nausea And Vomiting Last Admin: 02/18/19 06:04 Dose: 4 mg Documented by: Admin: 02/18/19 00:03 Dose: 4 mg Documented by: Admin: 02/17/19 14:29 Dose: 4 mg Documented by: OTTO Tamsulosin HCl (Flomax) 0.4 mg PO DAILY JOSE Last Admin: 02/18/19 08:34 Dose: 0.4 mg Documented by: Admin: 02/17/19 08:30 Dose: 0.4 mg Documented by: Admin: 02/16/19 08:53 Dose: 0.4 mg Documented by: BRENDA Trimethoprim/Sulfamethoxazole (Bactrim Ds) 1 tab PO NOW ONE Stop: 02/14/19 18:20 Last Admin: 02/14/19 18:28 Dose: 1 tab Documented by: MARCIO Vital Signs Vital signs: Vital Signs - 8 hr 02/14/19 15:21 02/14/19 17:33 02/14/19 19:40 Temperature 101.1 F H Pulse Rate 88 75 77 Respiratory Rate 16 14 Blood Pressure 146/73 H Blood Pressure [Left Arm] 126/55 L 115/50 L Pulse Oximetry 100 99 97 MDM - Abdominal Pain <Iraj SINGH Person - Last Filed: 02/14/19 22:18> Differential Diagnosis Differential diagnosis: Likely abdominal pain, acute appendicitis, calculus of kidney and diverticulitis Medical Records Attestation: I reviewed the patient's medical records. Lab Data Attestation: I reviewed the patient's lab results. Result diagrams: 02/18/19 05:50 02/18/19 05:50 Labs: Lab Results 02/14/19 02/14/19 02/14/19 Range/Units 15:42 15:42 15:42 WBC 10.5 (4.5-11.0) X10^3/uL RBC 5.04 (4.0-5.2) X10^6/uL Hgb 13.7 (12.0-16.0) g/dL Hct 40.3 (36-46) % MCV 80.0 (80-100) fL MCH 27.2 (26-34) PG MCHC 34.0 (30-36) % RDW 13.4 (11.6-14.8) % Plt Count 354 (150-400) X10^3/uL Neut % (Auto) 80.2 H (50-75) % Lymph % (Auto) 13.0 L (25-40) % [place] % (Auto) 6.2 (3-14) % Eos % (Auto) 0.3 L (2-4) % Baso % (Auto) 0.3 (0-2) % Neut # (Auto) 8400 H (1141-2321) /uL Lymph # (Auto) 1400 (9328-1763) /uL [place] # (Auto) 600 (0-900) /uL Eos # (Auto) 0 (0-450) /uL Baso # (Auto) 0 (0-100) /uL Sodium 137 (137-145) mmol/L Potassium 4.1 (3.4-5.1) mmol/L Chloride 97 L (98-107) mmol/L Carbon Dioxide 29 (22-32) mmol/L BUN 15 (7-17) mg/dL Creatinine 0.70 (0.52-1.04) mg/dL Estimated GFR > 60.0 (>60) mL/min BUN/Creatinine Ratio 21.4 (6-22) Glucose 85 (80-110) mg/dL Lactate 1.1 (0.7-2.1) mmol/L Calcium 9.9 (8.4-10.2) mg/dL Total Bilirubin 1.0 (0.2-1.3) mg/dL AST 21 (14-36) IU/L ALT < 6 L (9-52) IU/L Alkaline Phosphatase 138 H (38-126) U/L Total Protein 8.6 H (6.3-8.2) g/dL Albumin 4.4 (3.5-5.0) g/dL Globulin 4.2 H (1.7-4.1) g/dL Albumin/Globulin Ratio 1.0 (1.0-2.8) Lipase 97 (23-300) U/L Urine RBC (0-5/HPF) Urine WBC (0-5/HPF) Ur Squamous Epith Cells (0-5/HPF) Ur Transition Epith Cell (0-5/HPF) Urine Bacteria (None) Ur Culture Indicated? 02/14/19 Range/Units 16:04 WBC (4.5-11.0) X10^3/uL RBC (4.0-5.2) X10^6/uL Hgb (12.0-16.0) g/dL Hct (36-46) % MCV (80-100) fL MCH (26-34) PG MCHC (30-36) % RDW (11.6-14.8) % Plt Count (150-400) X10^3/uL Neut % (Auto) (50-75) % Lymph % (Auto) (25-40) % [place] % (Auto) (3-14) % Eos % (Auto) (2-4) % Baso % (Auto) (0-2) % Neut # (Auto) (8691-3743) /uL Lymph # (Auto) (5862-9675) /uL [place] # (Auto) (0-900) /uL Eos # (Auto) (0-450) /uL Baso # (Auto) (0-100) /uL Sodium (137-145) mmol/L Potassium (3.4-5.1) mmol/L Chloride (98-107) mmol/L Carbon Dioxide (22-32) mmol/L BUN (7-17) mg/dL Creatinine (0.52-1.04) mg/dL Estimated GFR (>60) mL/min BUN/Creatinine Ratio (6-22) Glucose (80-110) mg/dL Lactate (0.7-2.1) mmol/L Calcium (8.4-10.2) mg/dL Total Bilirubin (0.2-1.3) mg/dL AST (14-36) IU/L ALT (9-52) IU/L Alkaline Phosphatase (38-126) U/L Total Protein (6.3-8.2) g/dL Albumin (3.5-5.0) g/dL Globulin (1.7-4.1) g/dL Albumin/Globulin Ratio (1.0-2.8) Lipase (23-300) U/L Urine RBC 10-30/hpf H (0-5/HPF) Urine WBC 30-100/hpf H (0-5/HPF) Ur Squamous Epith Cells 1-5 /hpf (0-5/HPF) Ur Transition Epith Cell 1-5/hpf (0-5/HPF) Urine Bacteria Many (>30) H (None) Ur Culture Indicated? Culture not indicate Imaging Data CT scan - abdomen: Radiologist's impression: [address] [address] [address] Scan Report Signed Patient: Anel Calvin [facility]#: [id number] : 9Acct:[id number] Age/Sex: 68 / FDate of Service: 02/14/19 Loc: ED Accession Number: [id number] Procedure: CT abdomen pelvis w con Ordering Provider: Iraj Person PROCEDURE: CT ABDOMEN PELVIS W CON INDICATIONS: low abdominal pain with nausea, chills, fever TECHNIQUE: After the administration of intravenous contrast, 5 mm thick sections acquired from the diaphragm to the symphysis. 5 mm coronal and sagittal reformats were acquired. For radiation dose reduction, the following was used: automated exposure control, adjustment of mA and/or kV according to patient size. COMPARISON: None. FINDINGS: Image quality: Excellent. ABDOMEN: Lung bases: Lung bases are clear. Heart size is normal. Small to moderate hiatal hernia. Solid organs: Liver is normal in size and enhancement but there are 2 liver lesions. The first is located superiorly near the junction of the right and left hepatic lobes seen on series 2 image 12 and measuring up to 9 mm in maximal axial dimension this has discontinuous peripheral nodular enhancement and is highly likely to represent a benign hepatic hemangioma. The second lesion is indeterminate, located subcapsular on the right at the middle third of the liver parenchyma, having a maximal axial dimension of 2.4 cm and measuring up to 43 Hounsfield units internally. Definite discontinuous peripheral nodular enhancement characteristic of hemangioma is not found. This may, however, represent a hemangioma despite this circumstance. Gallbladder contains a small densely calcified 4 mm stone, without biliary obstruction or evidence of acute cholecystitis.. Biliary system is non dilated. Pancreas enhances normally. Spleen is normal in size and enhancement. No adrenal nodules. Kidneys demonstrate normal size and enhancement, without hydronephrosis on the left but there is hydronephrosis on the right which extends to include a hydroureter on the right and ureteral soft tissue thickening. This pattern extends inferiorly through approximately 2/3 of the length of the right ureter and a calculus is then identified impacted within the pelvic portion of the ureter where a 326 Hounsfield unit 3 x 4 mm calculus is present. Peritoneum and bowel: Bowel loops demonstrate normal wall thickness and caliber. No free fluid or air. Nodes and vessels: No retroperitoneal or mesenteric adenopathy by size criteria. Aorta and inferior vena cava are normal in size. Miscellaneous: No ventral hernias. PELVIS: Genitourinary: Bladder wall thickness is normal. Miscellaneous: No inguinal hernias or adenopathy. Note is made of peritoneal inflammation and thickening, and colonic mural thickening and hyperemia with an appearance consistent with active diverticulitis but without peridiverticular abscess. Inflammatory colitis appears present, likely reactive and associated with chronic diverticulitis. Bones: No suspicious bony lesions. No vertebral body compression fractures. IMPRESSION: 1. Chronic diverticulitis, active, without peridiverticular abscess. Segmental thickening of the sigmoid colon bowel wall is present consistent with chronic colitis superimposed, and the likelihood of malignancy in this area is considered low. Quality of visualization, however, is somewhat limited due to the chronic inflammatory change rendering the tissue margins indistinct. 2. A second acute/chronic issu is the presence of relatively prominent right-sided hydronephrosis and hydroureter with ureteral wall thickening to the level of the impacted 3 x 4 mm calculus at the upper pelvis level of the course of the right ureter. The degree of ureteral thickening indicates that this impaction is long-standing and urology consultation is recommended to determine whether ureteral stent placement is warranted at this time. 3. Within the liver parenchyma there are 2 separate lesions which each likely represents a hemangioma. However, only the smaller more superior lesion reaches CT criteria diagnostic for representing a hemangioma. The larger of the 2 lesions is more inferior, and should be assessed utilizing targeted ultrasound to determine whether sonographic characterization can establish hemangioma also as the underlying cause. Sequential followup by ultrasound may become necessary depending on the findings of the initial ultrasound. Dictated by: Demetrio Pham M.D. on 02/14/2019 at 17:44 Approved by: Demetrio Pham M.D. on 02/14/2019 at 17:54 [facility] Narrative Medical decision making narrative: This patient was sent from [facility] today for further evaluation on her ongoing abdominal pain 1 year which has been increased in severity and consistency for last 1 week. She had decreased appetite, nausea, urinary frequency, chills. She reports has colitis for 1 year which she has attempted to She had fever during triage which she denied aware at home. Urine sample was obtained from [facility] indicating bladder infection with urine WBC, bacteria and blood and this is being cultured. CT on abdomen/pelvis test was done indicating, impacted obstructed stone of 3 x 4 mm size at the Right ureter with hydronephrosis. According to CT scan, impaction appears to a longstanding and recommended urological consultation for ureter stent placement. Patient was not aware she had a kidney stone in the past. Also, she has chronic diverticulitis active without Nadya diverticular abscess and chronic colitis. Next, liver parent, has 2 separate lesions which appears to be like hemangioma and suggesting sequential follow-up by ultrasound. The patient's alkaline phosphate was mildly elevated today. Dr. Leon at urologist has been consulted and he expressed his concerned for bladder infection with finding is of obstructing kidney stone with hydronephrosis. He suggested patient to be admitted for observation with antibiotic medications to see her symptoms improved along her vital signs and blood test. Patient's white count was normal with mildly elevated neutrophil. The patient's kidney function test was unremarkable. Lactate was 1.1. Patient reports her pain and nausea were well managed with IV medications and she had received a L of normal saline. Patient was medicated with oral Bactrim and Flagyl prior discussing her case with urologist. She is allergic to all -cillins products and Cipro. Dr. Castillo was consulted over the phone who is the patient's primary care physician and shared the information and suggestions from urologist. Dr. Castillo kindly accepted her as an observation status. Patient informed the plan and suggestions from urologist and agrees with treatment plan. <Loco Mann, DO - Last Filed: 02/22/19 19:14> Lab Data Labs: Lab Results 02/14/19 02/14/19 02/14/19 Range/Units 15:42 15:42 15:42 WBC 10.5 (4.5-11.0) X10^3/uL RBC 5.04 (4.0-5.2) X10^6/uL Hgb 13.7 (12.0-16.0) g/dL Hct 40.3 (36-46) % MCV 80.0 (80-100) fL MCH 27.2 (26-34) PG MCHC 34.0 (30-36) % RDW 13.4 (11.6-14.8) % Plt Count 354 (150-400) X10^3/uL Neut % (Auto) 80.2 H (50-75) % Lymph % (Auto) 13.0 L (25-40) % [place] % (Auto) 6.2 (3-14) % Eos % (Auto) 0.3 L (2-4) % Baso % (Auto) 0.3 (0-2) % Neut # (Auto) 8400 H (4611-1419) /uL Lymph # (Auto) 1400 (5233-3616) /uL [place] # (Auto) 600 (0-900) /uL Eos # (Auto) 0 (0-450) /uL Baso # (Auto) 0 (0-100) /uL Sodium 137 (137-145) mmol/L Potassium 4.1 (3.4-5.1) mmol/L Chloride 97 L (98-107) mmol/L Carbon Dioxide 29 (22-32) mmol/L BUN 15 (7-17) mg/dL Creatinine 0.70 (0.52-1.04) mg/dL Estimated GFR > 60.0 (>60) mL/min BUN/Creatinine Ratio 21.4 (6-22) Glucose 85 (80-110) mg/dL Lactate 1.1 (0.7-2.1) mmol/L Calcium 9.9 (8.4-10.2) mg/dL Total Bilirubin 1.0 (0.2-1.3) mg/dL AST 21 (14-36) IU/L ALT < 6 L (9-52) IU/L Alkaline Phosphatase 138 H (38-126) U/L Total Protein 8.6 H (6.3-8.2) g/dL Albumin 4.4 (3.5-5.0) g/dL Globulin 4.2 H (1.7-4.1) g/dL Albumin/Globulin Ratio 1.0 (1.0-2.8) Lipase 97 (23-300) U/L Urine RBC (0-5/HPF) Urine WBC (0-5/HPF) Ur Squamous Epith Cells (0-5/HPF) Ur Transition Epith Cell (0-5/HPF) Urine Bacteria (None) Ur Culture Indicated? 02/14/19 Range/Units 16:04 WBC (4.5-11.0) X10^3/uL RBC (4.0-5.2) X10^6/uL Hgb (12.0-16.0) g/dL Hct (36-46) % MCV (80-100) fL MCH (26-34) PG MCHC (30-36) % RDW (11.6-14.8) % Plt Count (150-400) X10^3/uL Neut % (Auto) (50-75) % Lymph % (Auto) (25-40) % [place] % (Auto) (3-14) % Eos % (Auto) (2-4) % Baso % (Auto) (0-2) % Neut # (Auto) (7039-1742) /uL Lymph # (Auto) (5536-0183) /uL [place] # (Auto) (0-900) /uL Eos # (Auto) (0-450) /uL Baso # (Auto) (0-100) /uL Sodium (137-145) mmol/L Potassium (3.4-5.1) mmol/L Chloride (98-107) mmol/L Carbon Dioxide (22-32) mmol/L BUN (7-17) mg/dL Creatinine (0.52-1.04) mg/dL Estimated GFR (>60) mL/min BUN/Creatinine Ratio (6-22) Glucose (80-110) mg/dL Lactate (0.7-2.1) mmol/L Calcium (8.4-10.2) mg/dL Total Bilirubin (0.2-1.3) mg/dL AST (14-36) IU/L ALT (9-52) IU/L Alkaline Phosphatase (38-126) U/L Total Protein (6.3-8.2) g/dL Albumin (3.5-5.0) g/dL Globulin (1.7-4.1) g/dL Albumin/Globulin Ratio (1.0-2.8) Lipase (23-300) U/L Urine RBC 10-30/hpf H (0-5/HPF) Urine WBC 30-100/hpf H (0-5/HPF) Ur Squamous Epith Cells 1-5 /hpf (0-5/HPF) Ur Transition Epith Cell 1-5/hpf (0-5/HPF) Urine Bacteria Many (>30) H (None) Ur Culture Indicated? Culture not indicate Discharge Plan Departure Patient Disposition: Admitted as Observation Clinical Impression: Hydronephrosis with urinary obstruction due to renal calculus, Diverticulitis, Hemangioma of liver, Infection of kidney Discharge Date/Time: 02/14/19 21:55 Admit Date/Time: 02/14/19 21:32 Admit Provider: Rodger Castillo <Loco Mann DO - Last Filed: 02/22/19 19:14> Sign Out Provider Sign Out Attestation: I was available for consultation during this patient's emergency department encounter
[2019-02-14] MEDS: ONDANSETRON 4 MG/2 ML INJ IV (16:36)
[2019-02-14] MEDS: SODIUM CHLORIDE 0.9% 1,000 ML 1000 ML IV (16:36)
[2019-02-14] MEDS: KETOROLAC 60 MG/2 ML VIAL 30 MG IV (16:56)
[2019-02-14 17:30] LABS: Bacteria Urine Many (>30); RBC Urine 10-30/HPF (0-5/HPF); Squamous Epithelial Cell Urine 1-5 /HPF (0-5/HPF); Transitional Epi Cells Urine 1-5/HPF (0-5/HPF); WBC Urine 30-100/HPF (0-5/HPF)
[2019-02-14 17:33] VITALS: BP 126/55; PULSE 75; RESP 14; O2SAT 99
[2019-02-14] MEDS: TRIMETH/SULFA 160/800 (DS) TABLET 1 TAB PO (18:28)
[2019-02-14] MEDS: metroNIDAZOLE 250 MG TABLET 500 MG PO (18:28)
[2019-02-14 19:40] VITALS: BP 115/50; PULSE 77; O2SAT 97
--- NOTE | 2019-02-14 21:20 | PC.NURSE ---
Medication reconciliation attempted, pt unable to recall accurate list and is having bring in active medication list.
[2019-02-14 21:55] VITALS: BP 120/58; PULSE 77; RESP 15; O2SAT 100
[2019-02-14 22:04] VITALS: BMI 19.7
[2019-02-14 22:36] VITALS: BP 127/74; PULSE 76; RESP 18; TEMP 37.4; O2SAT 98
[2019-02-14 22:39] LABS: Add Manual Diff / Slide Review NO; Basophils Absolute Auto 0 /uL (0-100); Basophils Percent Auto 0.2 % (0-2); Eosinophils Absolute Auto 0 /uL (0-450); Eosinophils Percent Auto 0.3 % (2-4); Hematocrit 35.2 % (36-46); Hemoglobin 11.5 g/dL (12.0-16.0); Lymphocytes Absolute Auto 1700 /uL (1100-4500); Lymphocytes Percent Auto 15.3 % (25-40); Mean Corpuscular HGB Conc 32.8 % (30-36); Mean Corpuscular Hemoglobin 26.5 PG (26-34); Mean Corpuscular Volume 80.7 fL (80-100); Monocytes Absolute Auto 900 /uL (0-900); Monocytes Percent Auto 7.7 % (3-14); Neutrophils Absolute Auto 8400 /uL (1500-7000); Neutrophils Percent Auto 76.5 % (50-75); Platelet Count 284 X10^3/uL (150-400); Red Blood Cell Count 4.36 X10^6/uL (4.0-5.2); Red Cell Distribution Width 13.3 % (11.6-14.8)
[2019-02-14 22:47] LABS: Blood Urea Nitrogen 12 mg/dL (7-17); Calcium 9.1 mg/dL (8.4-10.2); Carbon Dioxide 27 mmol/L (22-32); Chloride 102 mmol/L (98-107); Estimated Glomerular Filt Rate > 60.0 mL/min (>60); Glucose 81 mg/dL (80-110); HEMOLYSIS < 15 (0-50); Potassium 4.1 mmol/L (3.4-5.1); Sodium 137 mmol/L (137-145)
[2019-02-14] MEDS: ACETAMINOPHEN 325 MG TABLET 975 MG PO (23:04)
[2019-02-14 23:20] VITALS: BP 108/60; PULSE 72; RESP 15; TEMP 36.9; O2SAT 97
[2019-02-15] VITALS (7 sets, daily range): BP systolic 114–140; BP diastolic 69–77; PULSE 70–79; RESP 16–18; TEMP 36.6–37.4; O2SAT 98–99; BMI 19.7
[2019-02-15] MEDS: SODIUM CHLORIDE 0.9% 1,000 ML 125 ML IV ×3 (00:03→16:59)
[2019-02-15] MEDS: CEFTRIAXONE 1 GM/50 ML FROZ.PIGGY IV (00:04)
[2019-02-15] MEDS: metroNIDAZOLE 500 MG TABLET PO (01:49)
--- NOTE | 2019-02-15 09:01 | DI.US.S_ITS ---
PROCEDURE: US ABDOMEN COMPLETE INDICATIONS: LIVER HEMANGIOMA/ABDOMINAL PAIN TECHNIQUE: Real-time scanning was performed of the abdominal and retroperitoneal organs, with image documentation. COMPARISON: [facility], CT, CT ABDOMEN PELVIS W CON, 02/14/2019, 16:33. FINDINGS: Liver: Liver is normal in size and homogeneous in echotexture except for presence of hyperechoic rounded foci corresponding to the hypodensity seen within the liver parenchyma thought to represent hemangiomas potentially by CT scanning one day ago. The sonographic appearance doesn't support diagnosis of hemangioma at each site. Gallbladder: The gallbladder contains a 7 mm stone, also seen by CT scanning laying dependently within the gallbladder lumen. Biliary ducts: Intrahepatic bile ducts are non-dilated. Extrahepatic bile duct caliber measures 5.3 mm. Normal is 6-7 mm or less in diameter, or 10 mm or less post-cholecystectomy. Pancreas: Visualized portions of the pancreas are sonographically normal. Spleen: Spleen is normal in size and homogeneous in echotexture. Kidneys: Kidneys are normal in size and echotexture. Right kidney measures 10.8 cm long; left kidney measures 10.6 cm long. No hydronephrosis or nephrolithiasis on the left, and the right-sided hydronephrosis is again noted associated with a calculus seen by CT scanning one day ago.. No solid masses. Aorta: Visualized aorta is normal in caliber at less than 3 cm. Iliacs: Proximal common iliac arteries are normal in caliber at less than 2.5 cm. IVC: Intrahepatic inferior vena cava is patent. Miscellaneous: No free abdominal fluid. IMPRESSION: The 2 liver lesions seen by CT scanning one day ago appear to represent hemangiomas. Followup in 3 months is recommended to confirm stability of appearance over time. Moderately severe right-sided hydronephrosis has been documented by CT scanning one day ago to be secondary to the presence of an impacted ureteral stone on the right. Urology consultation is recommended if this has not yet been obtained. Through the abdomen and pelvis no adenopathy or abnormal free fluid is seen. Dictated by: Demetrio Pham M.D. on 02/15/2019 at 11:34 Approved by: Demetrio Pham M.D. on 02/15/2019 at 12:50
--- NOTE | 2019-02-15 09:02 | PM.HP.1 ---
History of Present Illness History of Present Illness Date Patient Seen: 02/15/19 Time Patient Seen: 09:02 Chief complaint: UTI/continuting ABD and intenstinal issues Narrative: Abdominal pain. Patient came to the ER yesterday complaining of any increasing abdominal pain. She has had generalized abdominal pain for several months recently more so in the right lower quadrant and the left lower quadrant. What brought her to the emergency room was that she developed lower suprapubic discomfort thinking that she had urinary tract infection. She thinks she may have had a fever yesterday. She indeed admits to having no dysuria prior hematuria just discomfort when she urinates. She is evaluated in the emergency room and felt heavy acute urinary tract infection and was admitted for IV fluids and 4 antibiotics. Apparently emergency room staff discussed case with healthcare economics consultant and Moran who recommended ?observation? IV fluids. Septra and oral Flagyl as recommended. Additionally paces had chronic stool changes that go from constipation to loose stool she has had no melena or hematochezia. This been going on for months. Originally felt to be perhaps irritable bowel. She has had an unintentional 50 lb weight loss over the last year more less. Because of decreased appetite and also concern about the food causing increasing discomfort in stool changes. She never had a colonoscopy and is very concerned about having 1 her mother apparently had a perforation from colonoscopy. Patient also is very worried about anesthesia and very hesitant to have colonoscopy. He has no history of having diverticulosis/diverticulitis that she is aware of. Admittedly she has had no studies done to evaluate same. She thinks she may have had a flexible sigmoidoscopy years ago but unclear. Her other medical problems include atrial fibrillation for which she is on metoprolol succinate 25 mg twice a day. Saw distillery worker general at [facility] last year for same. Additionally saw a distillery worker general at [facility] who recommended metoprolol but no anticoagulation at. History of hyperlipidemia. History of hypertension. Patient History Social History household members: spouse Smoking Status: Never smoker alcohol intake: never substance use type: does not use Family & Social History Social History: household members spouse Prior Living Arrangements House Safety & Behavioral: Feels Safe in Current Yes Environment Been Physically Hurt or No Threatened By a Person Suicidal Ideation Description None Suicide Plan Description No Plan Tobacco & Substance use: Smoking Status Never smoker alcohol intake never alcohol intake frequency 0-2 drinks per day Substance Use Type does not use Meds Home Medications and Allergies Home Medications Medication Instructions Recorded Confirmed Type coenzyme Q10 [Co Q-10] 200 mg PO DAILY #0 03/28/12 02/15/19 History fluticasone propionate 44 2 inhalation INHALATION Q12H #10.6 11/02/17 02/15/19 Rx mcg/actuation HFA aerosol inhaler gram albuterol sulfate [Proventil HFA] 1 puff IH Q4HP PRN 12/21/17 02/15/19 History alprazolam 0.5 mg tablet See Rx Instructions PO BID PRN #20 12/28/17 02/15/19 Rx tab metoprolol succinate 50 mg 50 mg PO BID tab 08/23/18 02/15/19 History tablet,extended release 24 hr Allergies Allergy/AdvReac Type Severity Reaction Status Date / Time Penicillins [PENICILLINS] Allergy Unknown Verified 10/11/18 09:34 ciprofloxacin [From Cipro] AdvReac Verified 10/11/18 09:34 Review of Systems Review of Systems ROS Unobtainable: All systems reviewed & are unremarkable except as noted in HPI and below Exam Vital Signs (past 8 hours): - 02/15/19 07:45 Temperature 98.4 F Pulse Rate 70 Respiratory Rate 16 Blood Pressure 114/69 Pulse Oximetry 98 Oxygen Delivery Method Room Air Oxygen Flow Rate 0 Narrative Exam Narrative: Gen.: Skin: Warm well perfused. No prominent lesions. Nonicteric. HEENT: PERRL., normal EOM, external ears canals TMs normal, nasal mucosa normal and midline septum, oropharynx without lesions. Neck: Trachea midline. Thyroid nontender and not enlarged. Carotids without bruits. No lymphadenopathy Back: No obvious deformity or tenderness. Chest: Clear to P&A. Symmetric. CV: RRR no murmur or gallop. No JVD. Abdomen: No masses bruits tenderness or visceromegaly. Neuro: Cranial nerves II through XII grossly intact. Sensory and motor exams intact. Gait normal. Mental status: Intact for screening Extremities: No cyanosis clubbing or edema Musculoskeletal: No gross deformities Lymphatics: Negative for lymphadenopathy, supraclavicular axillary or inguinal. Patient resting quietly in hospital bed appearing in no distress. Her abdominal exam finds a no masses but generalized discomfort more so periumbilically. There is no rebound. Cardiac exam shows regular rhythm. Objective Labs Result Diagrams: 02/14/19 22:30 02/14/19 22:30 Labs: Laboratory Results - last 24 hr 02/14/19 02/14/19 02/14/19 15:42 15:42 15:42 WBC 10.5 RBC 5.04 Hgb 13.7 Hct 40.3 MCV 80.0 MCH 27.2 MCHC 34.0 RDW 13.4 Plt Count 354 Neut % (Auto) 80.2 H Lymph % (Auto) 13.0 L [place] % (Auto) 6.2 Eos % (Auto) 0.3 L Baso % (Auto) 0.3 Neut # (Auto) 8400 H Lymph # (Auto) 1400 [place] # (Auto) 600 Eos # (Auto) 0 Baso # (Auto) 0 Sodium 137 Potassium 4.1 Chloride 97 L Carbon Dioxide 29 BUN 15 Creatinine 0.70 Estimated GFR > 60.0 BUN/Creatinine Ratio 21.4 Glucose 85 Lactate 1.1 Calcium 9.9 Total Bilirubin 1.0 AST 21 ALT < 6 L Alkaline Phosphatase 138 H Total Protein 8.6 H Albumin 4.4 Globulin 4.2 H Albumin/Globulin Ratio 1.0 Lipase 97 Urine RBC Urine WBC Ur Squamous Epith Cells Ur Transition Epith Cell Urine Bacteria Ur Culture Indicated? 02/14/19 02/14/19 02/14/19 16:04 22:30 22:30 WBC 11.0 RBC 4.36 Hgb 11.5 L Hct 35.2 L MCV 80.7 MCH 26.5 MCHC 32.8 RDW 13.3 Plt Count 284 Neut % (Auto) 76.5 H Lymph % (Auto) 15.3 L [place] % (Auto) 7.7 Eos % (Auto) 0.3 L Baso % (Auto) 0.2 Neut # (Auto) 8400 H Lymph # (Auto) 1700 [place] # (Auto) 900 Eos # (Auto) 0 Baso # (Auto) 0 Sodium 137 Potassium 4.1 Chloride 102 Carbon Dioxide 27 BUN 12 Creatinine 0.60 Estimated GFR > 60.0 BUN/Creatinine Ratio 20.0 Glucose 81 Lactate Calcium 9.1 Total Bilirubin AST ALT Alkaline Phosphatase Total Protein Albumin Globulin Albumin/Globulin Ratio Lipase Urine RBC 10-30/hpf H Urine WBC 30-100/hpf H Ur Squamous Epith Cells 1-5 /hpf Ur Transition Epith Cell 1-5/hpf Urine Bacteria Many (>30) H Ur Culture Indicated? Culture not indicate Labs reviewed as above of significance for white blood cell count is normal. Lactate is normal she has clearly abnormal urinalysis with RBCs and white cells. CT report is reviewed with several abnormalities. Primarily she has apparent chronic diverticulitis with no abscess. Also acute diverticulitis. Presumed hemangioma of the liver to be evaluated. And presumed stone in the upper ureter causing hydronephrosis that the as per radiologist's appears to be chronic Assessment & Plan Assessment & Plan narrative: 1. Likely patient's primary diagnosis is acute diverticulitis on top of chronic diverticulitis. Based on the assessment by the radiologist she clearly has both. Clinical courses of both consistent with this as she has had these symptoms for months. She does have abnormal urine and may well be just inflammation from the adjacent diverticulitis or may well be a primary bladder infection culture pending. 3. Presumed chronic impacted stone of the right upper ureter Clay be relevant will deal with the above problems initially and then refer patient urologist as an outpatient for evaluation of the stone whether not stent needs to be placed or that the stone is relevant whatsoever. History of atrial fibrillation on beta lovely stable. 5. History of hypertension. History of hyperlipidemia lab studies pending Will get had discussion with Dr. Morales surgeon on-call patient is is very concerned about having colonoscopy sometime in the future may need to refer for camera of his endoscopy. Currently patient is not a surgical candidate for any of the above reasons. She will be treated with intravenous antibiotics for the time being. The the question is whether how long patient be IV antibiotics given the abnormal findings on her CT whether oral antibiotics will be adequate yet to be determined Quality VTE Deep Vein Thrombosis/Pulmonary Embolism Present on Admission: No
--- NOTE | 2019-02-15 11:08 | CM.DANOTE ---
DCP: Case received, EMR reviewed and met with patient. Introduced self and role. Was able to obtain baseline health information from patient. DCP assessment/template completed with information currently available. Patient is a 68 year old female who admitted yesterday evening to the care of the hospitalist team. PCP: Dr. Castillo. Payer: confirmed: Medicare [email or web address]. Patient came to the hospital via private vehicle secondary to lower abdominal pain. Patient holds diagnosis of Kidney stones/Diverticulitis, chronic. She should be having an ultrasound today. Met briefly with patient in her room. Pleasant. Patient is active. 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 She resides with her , Abdirahman. She stated, I don't like laying around in the hospital, I get bored. She is hopeful that she can go home today after the ultrasound. P: DCP to continue to follow. Patient should be able to go home when she is medically stable. She should be getting an ultrasound today. Elana Thompson RN/Bottle Carrier
[2019-02-15] MEDS: metroNIDAZOLE 500 MG/100 ML PIGGYBACK 100 MG IV ×2 (12:17→18:23)
--- NOTE | 2019-02-15 12:50 | DIET.PN ---
Dietary Progress Note Assessment: 68y F referred to nutrition for 50# wt loss in 1yr and acute on chronic diverticulitis Pt currently avoids: etoh, caffeine, MSG and HFCS for heart health. Has been avoiding sugar, gluten, dairy to help c digestive upset without relief. Scared to eat many foods. Feels this episode happened after she took grandkids to get rootbeer floats and fried chicken, overwhelmed her system. Reports high stress for past few years. Usual intake: wakes 630am B: fruit L (main meal): soup, salad D: fruit, GF crackers Pt interested in increasing variety of foods and gaining wt. HT: 162.5cm WT: 52.1kg UBW: 74kg (30% loss in 1yr severe) BMI: 19.7 Nutrition Diagnosis: Chronic Severe PCM r/t diagnosis (diverticulitis) aeb 75% EER for >1mo, N/V for >1mo, 30% wt loss in 1 yr (severe), BMI 19.7 (low for age), avoidance of a large variety of foods to manage sx. Interventions: Instructed pt in high fiber nutrition therapy to manage diverticular dz when not flaring, using low fiber diet when sx present. Advised pt to reintroduce organic gluten foods and dairy foods (sheep and goat cheese, aged cheese, probiotic) as tolerated to increase variety and increase PRO intake. Suggested probiotic foods for gut health and to help c possible food intolerances. Monitoring/Evaluations: recc outpt nutrition appt
[2019-02-15] MEDS: ALPRAZolam 0.25 MG TABLET 0.5 MG PO (13:54)
--- NOTE | 2019-02-15 14:21 | PC.NURSE ---
Pt has been very anxious this shift, appearing teary. She reports that This is all so scary for me.I have never been in the hospital. I'm worried I am going to . Pt's feelings were discussed and PRN zanax was decided upon. She wanted only half the dose and took 0.25mg. Upon reassessment, pt appeared calmer.
--- NOTE | 2019-02-15 14:32 | PM.CN ---
History of Present Illness Consult details Date Patient Seen: 02/15/19 Time Patient Seen: 13:10 Chief complaint: UTI/continuting ABD and intenstinal issues Reason for consult: Diverticulitis Requesting provider: Rodger Castillo Narrative: I was asked see this patient by Dr. Castillo. The patient is a woman who has been having months of intermittent left lower abdominal discomfort. She be get the pain and switch to eating a clear liquid diet and the pain would subside and she would go on about her business. She has noticed narrowing of her stools over this period and has had a 50 lb weight loss because of the need to eat differently due to the discomfort. Recently she developed midline lower abdominal pain which is somewhat new from the prior symptoms. She was seen in the ER and admitted. She denies any right abdominal pain. No flank pain. No blood in her urine. No blood in her stool. She has never had a colonoscopy. She may have had a flex sig in the past. Her mother had day perforation during colonoscopy and because of this and also because of fear of anesthesia due to the fact that her son is had multiple arrests during operations, she is quite terrified of procedures especially if they might involve anesthetic. The pain in the left lower abdomen is mostly a dull ache but can be crampy and intermittent. PFSH Social History household members: spouse Smoking Status: Never smoker alcohol intake: never substance use type: does not use Family History (Updated 02/15/19 @ 14:37 by Jason Morales MD) Father Cancer Social History household members: spouse Smoking Status: Never smoker alcohol intake: never substance use type: does not use Meds Home Medications and Allergies Home Medications Medication Instructions Recorded Confirmed Type coenzyme Q10 [Co Q-10] 200 mg PO DAILY #0 03/28/12 02/15/19 History fluticasone propionate 44 2 inhalation INHALATION Q12H #10.6 11/02/17 02/15/19 Rx mcg/actuation HFA aerosol inhaler gram albuterol sulfate [Proventil HFA] 1 puff IH Q4HP PRN 12/21/17 02/15/19 History alprazolam 0.5 mg tablet See Rx Instructions PO BID PRN #20 07/17/18 09/04/19 Rx tab metoprolol succinate 50 mg 50 mg PO BID tab 08/23/18 02/15/19 History tablet,extended release 24 hr Allergies Allergy/AdvReac Type Severity Reaction Status Date / Time Penicillins [PENICILLINS] Allergy Unknown Verified 10/11/18 09:34 ciprofloxacin [From Cipro] AdvReac Verified 10/11/18 09:34 Review of Systems Review of Systems Narrative: Patient denies fever, visual difficulties pain in arise earaches or sore throat. No cough cold or asthma. No chest pain or heart problems. No black or bloody bowel movements. No seizures or blackouts. No anxiety or depression. No unusual bruising or bleeding. Exam Vital Signs (past 8 hours): - 02/15/19 07:45 02/15/19 11:00 Temperature 98.4 F 99.1 F Pulse Rate 70 79 Respiratory Rate 16 16 Blood Pressure 114/69 138/76 Pulse Oximetry 98 98 Oxygen Delivery Method Room Air Oxygen Flow Rate 0 Narrative Exam Narrative: Cooperative pleasant woman in no apparent distress. Quite thin. Eyes are nonicteric. Pupils equal round reactive to light. Conjunctivae are pink. Ears without lesion. Dual septum is midline. Lungs are clear to auscultation no rales or rhonchi. Equal percussion. Heart regular rate and rhythm without murmur gallop. No bruit in the neck. Abdomen is distended mild to moderately. Her abdomen is soft without guarding. She has no reaction but states when examining the left lower abdomen and suprapubic area that there is tenderness. No hernias appreciated. Patient is alert and oriented x3. Speech rate and content are appropriate. Affect is appropriate. Objective Imaging CT scan - abdomen: My impression: Patient has hydroureter on the right. There is apparently a and instructing stone seen on imaging. The right kidney is still functioning however based on perfusion of it by contrast. There is inflammation in the left lower abdomen around the sigmoid. It is adjacent to the bladder. Labs Result Diagrams: 02/14/19 22:30 02/14/19 22:30 Labs: Laboratory Results - last 24 hr 02/14/19 02/14/19 02/14/19 15:42 15:42 15:42 WBC 10.5 RBC 5.04 Hgb 13.7 Hct 40.3 MCV 80.0 MCH 27.2 MCHC 34.0 RDW 13.4 Plt Count 354 Neut % (Auto) 80.2 H Lymph % (Auto) 13.0 L [place] % (Auto) 6.2 Eos % (Auto) 0.3 L Baso % (Auto) 0.3 Neut # (Auto) 8400 H Lymph # (Auto) 1400 [place] # (Auto) 600 Eos # (Auto) 0 Baso # (Auto) 0 Sodium 137 Potassium 4.1 Chloride 97 L Carbon Dioxide 29 BUN 15 Creatinine 0.70 Estimated GFR > 60.0 BUN/Creatinine Ratio 21.4 Glucose 85 Lactate 1.1 Calcium 9.9 Total Bilirubin 1.0 AST 21 ALT < 6 L Alkaline Phosphatase 138 H Total Protein 8.6 H Albumin 4.4 Globulin 4.2 H Albumin/Globulin Ratio 1.0 Lipase 97 Urine RBC Urine WBC Ur Squamous Epith Cells Ur Transition Epith Cell Urine Bacteria Ur Culture Indicated? 02/14/19 02/14/19 02/14/19 16:04 22:30 22:30 WBC 11.0 RBC 4.36 Hgb 11.5 L Hct 35.2 L MCV 80.7 MCH 26.5 MCHC 32.8 RDW 13.3 Plt Count 284 Neut % (Auto) 76.5 H Lymph % (Auto) 15.3 L [place] % (Auto) 7.7 Eos % (Auto) 0.3 L Baso % (Auto) 0.2 Neut # (Auto) 8400 H Lymph # (Auto) 1700 [place] # (Auto) 900 Eos # (Auto) 0 Baso # (Auto) 0 Sodium 137 Potassium 4.1 Chloride 102 Carbon Dioxide 27 BUN 12 Creatinine 0.60 Estimated GFR > 60.0 BUN/Creatinine Ratio 20.0 Glucose 81 Lactate Calcium 9.1 Total Bilirubin AST ALT Alkaline Phosphatase Total Protein Albumin Globulin Albumin/Globulin Ratio Lipase Urine RBC 10-30/hpf H Urine WBC 30-100/hpf H Ur Squamous Epith Cells 1-5 /hpf Ur Transition Epith Cell 1-5/hpf Urine Bacteria Many (>30) H Ur Culture Indicated? Culture not indicate Assessment & Plan Assessment and plan (1) Diverticulitis: Current visit: Yes Status: Acute (2) Hydronephrosis with urinary obstruction due to renal calculus: Current visit: Yes Status: Acute Assessment & Plan narrative: Patient appears to have diverticulitis. It is also possible this is a perforated colon cancer. It would be consistent with her history. Chronic diverticulitis would also be consistent with her history of months of discomfort. She may already have a fixed it stricture based on the history of narrowing of the stools for prolonged period. I a.m. concerned that she has developed frequency which could be an indication of a an impending colovesical fistula formation. I would continue the treat the diverticulitis as has begun. Broad-spectrum cephalosporins + metronidazole or good option. I would provide this IV until she is tolerating p.o. well and having return of bowel function. If however she does have a fixed stricture this may require operative intervention. I would also pursue at the same time the obstructing renal calculus. Obstruction of the kidney will ultimately lead to failure and I think this needs to be addressed sooner rather than later. If she opens up and they are able to treat her urinary tract obstruction she should undergo a colonoscopy. If she does not open up she would probably require a colon resection. That would have to be in conjunction with Urology and the treatment of this obstructed right ureter. Additionally, it would certainly be helpful to have a ureter to be in the left ureter
[2019-02-15] MEDS: CEFTRIAXONE 2 GM/50 ML FROZ.PIGGY IV (14:37)
[2019-02-15 14:57] LABS: Add Manual Diff / Slide Review NO; Basophils Absolute Auto 0 /uL (0-100); Basophils Percent Auto 0.4 % (0-2); Eosinophils Absolute Auto 0 /uL (0-450); Eosinophils Percent Auto 0.5 % (2-4); Hematocrit 33.6 % (36-46); Hemoglobin 11.3 g/dL (12.0-16.0); Lymphocytes Absolute Auto 1200 /uL (1100-4500); Lymphocytes Percent Auto 13.5 % (25-40); Mean Corpuscular HGB Conc 33.5 % (30-36); Mean Corpuscular Volume 80.5 fL (80-100); Monocytes Absolute Auto 600 /uL (0-900); Monocytes Percent Auto 6.6 % (3-14); Neutrophils Absolute Auto 7200 /uL (1500-7000); Platelet Count 272 X10^3/uL (150-400); Red Blood Cell Count 4.17 X10^6/uL (4.0-5.2); Red Cell Distribution Width 13.2 % (11.6-14.8); White Blood Cell Count 9.1 X10^3/uL (4.5-11.0)
--- NOTE | 2019-02-15 15:13 | PC.NURSE ---
Pt reported at approx. 1200 today that she took her own dose of metoprolol from her purse as she was not given her morning dose. (Pt was in an ultasound proceedure off unit and was NPO.) Pt expressed fear that she would go into afib if she did not get her metoprolol on time. Pt was instructed not to take her own home medications while hospitalized and educated to the fact that she was safe to be slightly delayed into receiving this medication. Pt was placed on tele and is normal sinus rhythm.
[2019-02-15 16:23] LABS: Alanine Aminotransferase 19 IU/L (9-52); Albumin 3.4 g/dL (3.5-5.0); Albumin Globulin Ratio 1.1 (1.0-2.8); Alkaline Phosphatase 98 U/L (38-126); Aspartate Aminotransferase 17 IU/L (14-36); Bilirubin Total 0.7 mg/dL (0.2-1.3); Blood Urea Nitrogen 12 mg/dL (7-17); Calcium 8.9 mg/dL (8.4-10.2); Carbon Dioxide 21 mmol/L (22-32); Chloride 104 mmol/L (98-107); Cholesterol 184 mg/dL (140-199); Estimated Glomerular Filt Rate > 60.0 mL/min (>60); Globulin 3.1 g/dL (1.7-4.1); Glucose 65 mg/dL (80-110); HDL Cholesterol 31 mg/dL (40-60); HEMOLYSIS < 15 (0-50); LDL Cholesterol Calculated 141 mg/dL (<100); Potassium 4.5 mmol/L (3.4-5.1); Sodium 138 mmol/L (137-145); Total Protein 6.5 g/dL (6.3-8.2); Triglycerides 58 mg/dL (35-150)
--- NOTE | 2019-02-15 18:02 | PC.NURSE ---
Addendum entered by Yani Pierre R.N. 02/15/19 23:41: Pt rates central and LLQ abdominal pain 07/24. Declines offer for analgesia. Denies nausea. Resting quietly in bed without signs of distress. Offered pt med for anxiety/sleep and pt declines. Addendum entered by Yani Pierre R.N. 02/15/19 20:00: Pt has had continual visitors this evening shift. Ambulatory in hallway independently. Spends majority of time sitting on window seat conversing with visitors. Denies concerns/complaints. Original Note: Pt sitting in room on window seat conversing with visitor and taking diet slowly. Now ambulatory in hallway.
[2019-02-15] MEDS: METOPROLOL ER 50 MG TABLET PO (21:40)
[2019-02-16] VITALS (10 sets, daily range): BP systolic 111–156; BP diastolic 64–88; PULSE 70–82; RESP 16–20; TEMP 36.5–37.4; O2SAT 97–100
[2019-02-16] MEDS: metroNIDAZOLE 500 MG/100 ML PIGGYBACK 100 MG IV ×5 (00:13→23:34)
[2019-02-16] MEDS: CEFTRIAXONE 2 GM/50 ML FROZ.PIGGY IV ×2 (01:09→11:56)
[2019-02-16] MEDS: SODIUM CHLORIDE 0.9% 1,000 ML 125 ML IV ×3 (03:33→23:33)
[2019-02-16] MEDS: METOPROLOL ER 50 MG TABLET PO (08:50)
[2019-02-16] MEDS: TAMSULOSIN 0.4 MG CAPSULE PO (08:53)
--- NOTE | 2019-02-16 09:24 | PM.PN.1 ---
Subjective Subjective Date Patient Seen: 02/16/19 Time Patient Seen: 09:24 Interval history: Diverticulitis. Patient feeling better. Has minimal symptoms. Had a small bowel movement. Tolerating limited food. No nausea no vomiting. Has been ambulating well in the hallways. Feeling much better has some interest in being discharged but not it. No apparent pain related to the kidney stones far as we can tell. Exam Vital Signs (past 8 hours): - 02/16/19 05:00 02/16/19 07:51 02/16/19 09:01 Temperature 98.1 F 97.9 F Pulse Rate 73 82 Respiratory Rate 16 18 Blood Pressure 117/64 143/78 H Pulse Oximetry 97 98 97 Oxygen Delivery Method Room Air Oxygen Flow Rate 0 Narrative Exam Narrative: Patient is sitting in the chair again radiate breakfast looks well in no distress abdominal exam is benign lungs clear heart regular rhythm no murmur gallop Objective Labs Result Diagrams: 02/15/19 14:30 02/15/19 14:30 Labs: Laboratory Results - last 24 hr 02/15/19 02/15/19 02/15/19 14:30 14:30 14:30 WBC 9.1 RBC 4.17 Hgb 11.3 L Hct 33.6 L MCV 80.5 MCH 27.0 MCHC 33.5 RDW 13.2 Plt Count 272 Neut % (Auto) 79.0 H Lymph % (Auto) 13.5 L [place] % (Auto) 6.6 Eos % (Auto) 0.5 L Baso % (Auto) 0.4 Neut # (Auto) 7200 H Lymph # (Auto) 1200 [place] # (Auto) 600 Eos # (Auto) 0 Baso # (Auto) 0 Sodium 138 Potassium 4.5 Chloride 104 Carbon Dioxide 21 L BUN 12 Creatinine 0.60 Estimated GFR > 60.0 BUN/Creatinine Ratio 20.0 Glucose 65 L Calcium 8.9 Total Bilirubin 0.7 AST 17 ALT 19 Alkaline Phosphatase 98 Total Protein 6.5 Albumin 3.4 L Globulin 3.1 Albumin/Globulin Ratio 1.1 Triglycerides 58 Cholesterol 184 LDL Cholesterol, Calc 141 H CBC from this morning pending HDL Cholesterol 31 L CBC from this morning pending Assessment & Plan Assessment & Plan narrative: 1. Acute diverticulitis/chronic diverticulitis improving. Patient has had normal white count normal temperature the duration. Patient eventually will need a colonoscopy perhaps month for now as per Dr. Morales. In the interim she will continue on IV antibiotics. She and I discussed length of time she will be on IV antibiotics. A minimum would be tomorrow that every 3 days. Presumably up to 5 we negotiated that she would tolerate IV antibiotics till Wednesday which time she will be discharged on oral antibiotics. 2. Patient also has some concerns about the 1 daily tomorrow the some yet to be determined I explained to her the advantage of intravenous antibiotics and she will remain at till tomorrow then reassess tomorrow of but by for stay toe Wednesday on IV antibiotics. Admittedly is a bit artery. 3. She has ureteral lithiasis in the right ureter that is causing some hydroureter. I discussed this with Dr. Yoon urologist [facility]. He agreed the patient did have kidney stone and that would benefit from a stent presumably he felt there is no urgency to this and if she had not passed the stone by next week he would arrange for stent placement his office will be contacting patient as an outpatient. Meanwhile we start her on Flomax to help with the passage of the stone. She will be in continued IV antibiotics to improve urine flow. 4. She has preferred no Lovenox. 5. Medication list updated reviewed. Dr. Pemberton to be seeing patient in my absence Quality VTE Deep Vein Thrombosis/Pulmonary Embolism Present on Admission: No
[2019-02-16 09:53] LABS: Add Manual Diff / Slide Review NO; Basophils Absolute Auto 100 /uL (0-100); Basophils Percent Auto 1.3 % (0-2); Eosinophils Absolute Auto 100 /uL (0-450); Eosinophils Percent Auto 0.9 % (2-4); Hematocrit 33.7 % (36-46); Hemoglobin 11.3 g/dL (12.0-16.0); Lymphocytes Absolute Auto 1000 /uL (1100-4500); Mean Corpuscular HGB Conc 33.5 % (30-36); Mean Corpuscular Hemoglobin 26.9 PG (26-34); Mean Corpuscular Volume 80.3 fL (80-100); Monocytes Absolute Auto 400 /uL (0-900); Monocytes Percent Auto 5.5 % (3-14); Neutrophils Absolute Auto 6200 /uL (1500-7000); Neutrophils Percent Auto 79.3 % (50-75); Platelet Count 302 X10^3/uL (150-400); Red Cell Distribution Width 13.6 % (11.6-14.8); White Blood Cell Count 7.8 X10^3/uL (4.5-11.0)
--- NOTE | 2019-02-16 09:53 | PC.NURSE ---
Addendum entered by Patricia Barrera R.N. 02/16/19 14:38: GI/MS - showered this afternoon, ambul hallway, had a small loose and small formed stool this afternoon, donna hebert for lunch. Original Note: AM NOTE - pt is up ambul hallway before breakfast, then to chair after in br w/small stool particles, bt are present, greater luq, llq, passing flatus, hx poor appetite and anxious re oral intake, discussed palatable foods and had plain yogurt with fruit this am, environmental health safety engineer in to plan lunch order
--- NOTE | 2019-02-16 15:00 | P.PN_ITS ---
Subjective Subjective Date Patient Seen: 02/16/19 Time Patient Seen: 15:00 Interval history: Patient says she had a few bowel movements. They are not even as large as the small ones she was having pre admission. She says her pain is actually a little worse than yesterday. Exam Vital Signs (past 8 hours): - 02/16/19 07:51 02/16/19 09:01 02/16/19 10:00 Temperature 97.9 F Pulse Rate 82 Respiratory Rate 18 Blood Pressure 143/78 H Pulse Oximetry 98 97 98 02/16/19 11:00 Temperature 98.5 F Pulse Rate 82 Respiratory Rate 20 Blood Pressure 139/71 Pulse Oximetry 97 Oxygen Delivery Method Room Air Oxygen Flow Rate 0 Narrative Exam Narrative: Abdomen is a little more distended than yesterday. It remains soft. No mass or fullness at this time. Objective Labs Result Diagrams: 02/16/19 09:35 02/15/19 14:30 Labs: Laboratory Results - last 24 hr 02/15/19 02/15/19 02/16/19 14:30 14:30 09:35 WBC 7.8 RBC 4.20 Hgb 11.3 L Hct 33.7 L MCV 80.3 MCH 26.9 MCHC 33.5 RDW 13.6 Plt Count 302 Neut % (Auto) 79.3 H Lymph % (Auto) 13.0 L [place] % (Auto) 5.5 Eos % (Auto) 0.9 L Baso % (Auto) 1.3 Neut # (Auto) 6200 Lymph # (Auto) 1000 L [place] # (Auto) 400 Eos # (Auto) 100 Baso # (Auto) 100 Sodium 138 Potassium 4.5 Chloride 104 Carbon Dioxide 21 L BUN 12 Creatinine 0.60 Estimated GFR > 60.0 BUN/Creatinine Ratio 20.0 Glucose 65 L Calcium 8.9 Total Bilirubin 0.7 AST 17 ALT 19 Alkaline Phosphatase 98 Total Protein 6.5 Albumin 3.4 L Globulin 3.1 Albumin/Globulin Ratio 1.1 Triglycerides 58 Cholesterol 184 LDL Cholesterol, Calc 141 H HDL Cholesterol 31 L Assessment & Plan Assessment & Plan narrative: acute/chronic diverticulitis. Not much real difference from yesterday. She has only really received one day of treatment thus far so i am not surprised by a lack of significant progress... Continue IV antibiotics. May want to slow the diet advancement (will monitor). Quality VTE Deep Vein Thrombosis/Pulmonary Embolism Present on Admission: No
[2019-02-16] MEDS: ALPRAZolam 0.25 MG TABLET 0.5 MG PO (16:47)
--- NOTE | 2019-02-16 16:51 | PC.NURSE ---
Addendum entered by Yani Pierre R.N. 02/16/19 23:58: Pt reports tylenol took edge off of abdominal pain. Declines offer for vicodin. Dressing changed to right ac iv site. Pt up ad shannon in room. Resting quietly in bed with eyes closed without signs of distress or discomfort during shift exchange. Addendum entered by Yani Pierre R.N. 02/16/19 19:28: Pt requests pain meds for abdominal pain. Spoke with on-call physician, Dr. Sandoval, and orders received and entered to manage pain/nausea. Addendum entered by Yani Pierre R.N. 02/16/19 17:48: No orders yet for anti-emetic, but pt states this feeling has resolved following administration of xanax. Will continue to monitor. Original Note: Pt resting quietly in bed. Admits to more abdominal discomfort today over yesterday with low grade nausea. States feeling a bit discouraged since feeling less well today. Discussion with pt re pain meds and anti-emetics. Dr. Castillo's office contacted for orders for anti-emetic. This bid writer returned to room after making call and pt now tearful. Discussed benefit of xanax wiruslan pt and pt agreeable to accepting one half the dose. Encouraged to take oral fluids and foods only as desires; not to push the matter. Pt in agreement and is reassured. Allowed to verbalize.
[2019-02-16] MEDS: ACETAMINOPHEN 325 MG TABLET 650 MG PO (20:00)
[2019-02-16] MEDS: METOPROLOL ER 50 MG TABLET 25 MG PO (20:31)
[2019-02-17] VITALS (8 sets, daily range): BP systolic 123–151; BP diastolic 69–94; PULSE 68–76; RESP 16; TEMP 36.6–37; O2SAT 97–100
[2019-02-17] MEDS: CEFTRIAXONE 2 GM/50 ML FROZ.PIGGY IV ×2 (01:14→14:29)
[2019-02-17] MEDS: metroNIDAZOLE 500 MG/100 ML PIGGYBACK 100 MG IV ×3 (05:43→18:26)
--- NOTE | 2019-02-17 06:30 | PC.NURSE ---
Shift note: Pt has been independent to the toilet and calls to have hat emptied. Responded to call light at 0630, pt had a small bowel movement that included bright red blood and blood tinged mucus. Pt reports that she noticed it, no reports of blood with previous bowel movements over night.
--- NOTE | 2019-02-17 07:52 | PC.NURSE ---
0800- Pt is A&Ox3, up ambulating in halls. Complains of small amount of pain to her r.lower quadrant. Pt also has a kidney stone to r.ureter area and she states that she is having 0 pain here. No nausea reported. BT+x4. Sitting up in bed reading and watching television.
[2019-02-17] MEDS: TAMSULOSIN 0.4 MG CAPSULE PO (08:30)
[2019-02-17] MEDS: METOPROLOL ER 50 MG TABLET 25 MG PO ×2 (08:30→20:35)
[2019-02-17] MEDS: ACETAMINOPHEN 325 MG TABLET 650 MG PO ×2 (08:31→18:30)
[2019-02-17 08:47] LABS: Add Manual Diff / Slide Review NO; Basophils Absolute Auto 0 /uL (0-100); Basophils Percent Auto 0.5 % (0-2); Eosinophils Absolute Auto 100 /uL (0-450); Eosinophils Percent Auto 1.8 % (2-4); Hematocrit 32.7 % (36-46); Hemoglobin 11.2 g/dL (12.0-16.0); Lymphocytes Absolute Auto 900 /uL (1100-4500); Lymphocytes Percent Auto 15.6 % (25-40); Mean Corpuscular HGB Conc 34.1 % (30-36); Mean Corpuscular Hemoglobin 27.1 PG (26-34); Mean Corpuscular Volume 79.4 fL (80-100); Monocytes Absolute Auto 400 /uL (0-900); Monocytes Percent Auto 7.2 % (3-14); Neutrophils Absolute Auto 4400 /uL (1500-7000); Neutrophils Percent Auto 74.9 % (50-75); Platelet Count 297 X10^3/uL (150-400); Red Blood Cell Count 4.12 X10^6/uL (4.0-5.2); Red Cell Distribution Width 13.6 % (11.6-14.8); White Blood Cell Count 5.9 X10^3/uL (4.5-11.0)
--- NOTE | 2019-02-17 10:05 | PM.PN.1 ---
Subjective Subjective Date Patient Seen: 02/17/19 Time Patient Seen: 10:05 Interval history: Patient sitting on the chair by the bed. She says she is doing well up ambulating. Has ongoing abdominal pain and discomfort she says she just did not feel very well last night. She is eating a little bit not drinking much she says she is resting. She has questions about what her appropriate diet should be. She also has questions in regards to long-term care of diverticulosis and pain. Patient states she has never been in the hospital before. She also does not complain of any flank pain. She is wondering how she will no for kidney stone passes. She recently received a phone call from the urology office and has an appointment to see them here in a week or so. Exam Vital Signs (past 8 hours): - 02/17/19 05:59 02/17/19 07:20 02/17/19 07:50 Temperature 98.0 F 98.6 F Pulse Rate 76 76 Respiratory Rate 16 16 Blood Pressure 123/71 145/77 H Pulse Oximetry 99 98 98 Oxygen Delivery Method Room Air Oxygen Flow Rate 0 Narrative Exam Narrative: Gen.: Alert and oriented x3 no apparent distress. HEENT: NCAT PERRLA tympanic membranes are clear nares are patent oral mucosa is moist no tonsillar hypertrophy neck is supple without lymphadenopathy no thyroid enlargement. Cardio: S1-S2 regular rate and rhythm no murmurs appreciated. Respiratory: Lungs are clear to auscultation no wheezes or crackles normal respiratory effort. Abdomen: Soft nontender no rebound or guarding no liver spleen enlargement no appreciable hernias Extremities: Full range of motion no appreciable weakness no cyanosis or edema. Neurologic: Grossly intact. Objective Labs Result Diagrams: 02/17/19 08:10 02/15/19 14:30 Labs: Laboratory Results - last 24 hr 02/17/19 08:10 WBC 5.9 RBC 4.12 Hgb 11.2 L Hct 32.7 L MCV 79.4 L MCH 27.1 MCHC 34.1 RDW 13.6 Plt Count 297 Neut % (Auto) 74.9 Lymph % (Auto) 15.6 L [place] % (Auto) 7.2 Eos % (Auto) 1.8 L Baso % (Auto) 0.5 Neut # (Auto) 4400 Lymph # (Auto) 900 L [place] # (Auto) 400 Eos # (Auto) 100 Baso # (Auto) 0 Assessment & Plan Assessment & Plan narrative: Chronic diverticulosis with acute exacerbation of diverticulitis. Continue with metronidazole ceftriaxone. Patient is afebrile vital signs are stable white blood cell count is normal. Her pain is moderately well controlled. She has tolerated a limited amount of diet. Will continue with a further IV antibiotics. Anticipate discharge here in the next 24-48 hours. She is still feeling weak tired and has some uncomfortable pain. I think the antibiotics are appropriate and limiting her oral intake. Right-sided hydronephrosis with ureteral stent calculi. As per Urology. Patient was started on Flomax. Has an appointment to see them for potential stone removal. She is currently not having any pain or discomfort and receiving IV fluids. Atrial fibrillation history of her heart sounds like she has a normal sinus rhythm. Hypertension and hyperlipidemia. Chronic and stable. Disposition and plan. Limited oral intake continue with IV fluids. Pain control with Tylenol. IV antibiotics. And anticipate discharge in the next 24-48 hours. Quality VTE Deep Vein Thrombosis/Pulmonary Embolism Present on Admission: No
[2019-02-17] MEDS: SODIUM CHLORIDE 0.9% 1,000 ML 125 ML IV ×2 (11:19→20:41)
--- NOTE | 2019-02-17 13:02 | PM.PN.1 ---
Subjective Subjective Date Patient Seen: 02/17/19 Time Patient Seen: 13:08 Interval history: No acute overnight events. The patient tolerated a regular diet without nausea or vomiting. Having bowel movements. Pain in the left lower quadrant is significantly improved as compared to admission. Exam Vital Signs (past 8 hours): - 02/17/19 05:59 02/17/19 07:20 02/17/19 07:50 Temperature 98.0 F 98.6 F Pulse Rate 76 76 Respiratory Rate 16 16 Blood Pressure 123/71 145/77 H Pulse Oximetry 99 98 98 02/17/19 12:00 Temperature 98 F Pulse Rate 68 Respiratory Rate 16 Blood Pressure 151/85 H Pulse Oximetry 100 Oxygen Delivery Method Room Air Oxygen Flow Rate 0 Narrative Exam Narrative: General adult female no acute distress alert and oriented Abdomen soft mildly tender left lower quadrant no peritonitis no guarding Objective Labs Result Diagrams: 02/17/19 08:10 02/15/19 14:30 Labs: Laboratory Results - last 24 hr 02/17/19 08:10 WBC 5.9 RBC 4.12 Hgb 11.2 L Hct 32.7 L MCV 79.4 L MCH 27.1 MCHC 34.1 RDW 13.6 Plt Count 297 Neut % (Auto) 74.9 Lymph % (Auto) 15.6 L [place] % (Auto) 7.2 Eos % (Auto) 1.8 L Baso % (Auto) 0.5 Neut # (Auto) 4400 Lymph # (Auto) 900 L [place] # (Auto) 400 Eos # (Auto) 100 Baso # (Auto) 0 Assessment & Plan Assessment & Plan narrative: 68-year-old female with uncomplicated diverticulitis doing well with with medical management. I reviewed her laboratory studies which demonstrated white blood cell count of 6 she is afebrile tolerating a diet with improving abdominal pain. No acute surgical intervention. Is likely ready for discharge soon with PO antibiotics. Will need colonoscopy as an outpatient. Quality VTE Deep Vein Thrombosis/Pulmonary Embolism Present on Admission: No
[2019-02-17] MEDS: ONDANSETRON 4 MG/2 ML INJ IV (14:29)
--- NOTE | 2019-02-17 16:50 | PC.NURSE ---
Addendum entered by Yani Pierre R.N. 02/17/19 21:48: Admits to anxiety surrounding hospital and hospital experience. States has PTSD from child's experiences in hospital. Xanax administered with excellent results. Pt implores other relaxation techniques to manage. States anxiety is an issue @ home as well. Rates abdominal pain 2/10. Ambulatory independently in hallway. No further concerns or complaints verbalized. Original Note: Pt ambulatory in hallway independently @ beginning of shift. States today is a better day. Reports LLQ abdominal pain 2/10 and declines any intervention. Admits to low grade nausea following flagyl infusion. Discussed with pt medicating with zofran as ordered to manage. Small formed stool with void. Denies any back or flank pain. Pt states plan is for discharge home tomorrow.
[2019-02-17] MEDS: ALPRAZolam 0.25 MG TABLET 0.5 MG PO (20:38)
[2019-02-18] MEDS: metroNIDAZOLE 500 MG/100 ML PIGGYBACK 100 MG IV ×2 (00:03→06:04)
[2019-02-18] MEDS: ONDANSETRON 4 MG/2 ML INJ IV ×2 (00:03→06:04)
[2019-02-18 00:08] VITALS: O2SAT 99
[2019-02-18] MEDS: CEFTRIAXONE 2 GM/50 ML FROZ.PIGGY IV (01:16)
[2019-02-18 05:00] VITALS: BP 136/75; PULSE 82; RESP 18; TEMP 36.3; O2SAT 96
[2019-02-18] MEDS: SODIUM CHLORIDE 0.9% 1,000 ML 125 ML IV (06:04)
[2019-02-18 06:07] LABS: Add Manual Diff / Slide Review NO; Basophils Absolute Auto 100 /uL (0-100); Basophils Percent Auto 1.3 % (0-2); Eosinophils Absolute Auto 200 /uL (0-450); Eosinophils Percent Auto 2.9 % (2-4); Hematocrit 31.8 % (36-46); Hemoglobin 10.8 g/dL (12.0-16.0); Lymphocytes Absolute Auto 1300 /uL (1100-4500); Mean Corpuscular HGB Conc 33.9 % (30-36); Mean Corpuscular Hemoglobin 27.1 PG (26-34); Mean Corpuscular Volume 79.8 fL (80-100); Monocytes Absolute Auto 400 /uL (0-900); Monocytes Percent Auto 8.1 % (3-14); Neutrophils Absolute Auto 3500 /uL (1500-7000); Neutrophils Percent Auto 63.7 % (50-75); Platelet Count 289 X10^3/uL (150-400); Red Blood Cell Count 3.99 X10^6/uL (4.0-5.2); Red Cell Distribution Width 13.6 % (11.6-14.8); White Blood Cell Count 5.5 X10^3/uL (4.5-11.0)
[2019-02-18 06:14] LABS: Calcium 8.6 mg/dL (8.4-10.2); Carbon Dioxide 24 mmol/L (22-32); Chloride 108 mmol/L (98-107); Estimated Glomerular Filt Rate > 60.0 mL/min (>60); Glucose 91 mg/dL (80-110); HEMOLYSIS < 15 (0-50); Potassium 3.4 mmol/L (3.4-5.1); Sodium 141 mmol/L (137-145)
[2019-02-18 06:32] LABS: Blood Urea Nitrogen 2 mg/dL (7-17)
[2019-02-18 08:13] VITALS: O2SAT 97
[2019-02-18 08:34] VITALS: BP 136/75
[2019-02-18] MEDS: METOPROLOL ER 50 MG TABLET 25 MG PO (08:34)
[2019-02-18] MEDS: TAMSULOSIN 0.4 MG CAPSULE PO (08:34)
[2019-02-18 09:00] VITALS: BP 152/87; PULSE 66; RESP 16; TEMP 37; O2SAT 98
[2019-02-18 09:15] VITALS: O2SAT 98
[2019-02-18] MEDS: ACETAMINOPHEN 325 MG TABLET 650 MG PO (10:09)
--- NOTE | 2019-02-18 10:14 | PM.DS.1 ---
History of Present Illness History of Present Illness Date Patient Seen: 02/18/19 Time Patient Seen: 10:15 Chief complaint: UTI/continuting ABD and intenstinal issues Narrative: {Below from Dr. Castillo's H&P 02/15/19} Patient came to the ER yesterday complaining of any increasing abdominal pain. She has had generalized abdominal pain for several months recently more so in the right lower quadrant and the left lower quadrant. What brought her to the emergency room was that she developed lower suprapubic discomfort thinking that she had urinary tract infection. She thinks she may have had a fever yesterday. She indeed admits to having no dysuria prior hematuria just discomfort when she urinates. She is evaluated in the emergency room and felt heavy acute urinary tract infection and was admitted for IV fluids and 4 antibiotics. Apparently emergency room staff discussed case with clinical practice consultant and [facility] who recommended ?observation? IV fluids. Septra and oral Flagyl as recommended. Additionally paces had chronic stool changes that go from constipation to loose stool she has had no melena or hematochezia. This been going on for months. Originally felt to be perhaps irritable bowel. She has had an unintentional 50 lb weight loss over the last year more less. Because of decreased appetite and also concern about the food causing increasing discomfort in stool changes. She never had a colonoscopy and is very concerned about having 1 her mother apparently had a perforation from colonoscopy. Patient also is very worried about anesthesia and very hesitant to have colonoscopy. He has no history of having diverticulosis/diverticulitis that she is aware of. Admittedly she has had no studies done to evaluate same. She thinks she may have had a flexible sigmoidoscopy years ago but unclear. Discharge Providers Provider Date of admission: 02/14/19 21:32 Discharge Date: 02/18/19 Primary care physician: Rodger Castillo MD Consults: 02/15/19 08:57 Consult to Dietitian, Adult Routine Comment: Reason For Exam: wt loss 02/15/19 08:58 Consult to Physician Routine Comment: Consulting Provider: Jason Morales Reason for consultation: diverticulitis Has provider been notified: Yes Discharge provider: Devon Pemberton MD Summary Hospital Course Discharge Diagnosis: 1. Diverticulitis without specific organism identified 2. Obstructing renal calculus 3. Hydronephrosis from obstructing renal calculus 4. Paroxysmal atrial fibrillation 5. Generalized anxiety disorder 6. Hyperlipidemia 7. Hypertension 8. Severe chronic protein calorie malnutrition due to chronic abdominal pain and presumably diverticulitis as above Hospital Course: Patient was admitted by the ER as noted above. She was diagnosed with a chronic diverticulitis without evidence of abscess formation. She has not been treated with any antibiotics and was started on this in the emergency department. After 24-48 hours she had significant improvement in abdominal symptoms although her abdominal pain was not completely absent. She is very anxious about continuing to be cared for in a hospital setting given some prior experiences in the hospital as a child apparently. She was seen in consultation by General surgery who was quite concerned she may developing some sort of fistula but certainly felt she needed treatment with IV antibiotics before undertaking any sort of endoscopic evaluation which would be the next step She also was found to have a obstructing renal calculus. Urology is not available at this hospital but 5 phone conversation including having Urology look at her imaging was not felt as though the stone was an acute issue. Was felt as though the stone might well passed on its own but could be retrieved and/or stent placed if needed as an outpatient. However treatment of her diverticular infection was a higher priority and needed to be done given lack of acuity and urgency with her non completely obstructing stone and persistently normal renal function This will be addressed as an outpatient as well Patient because of her weight loss was also seen by dietitian who felt as though she had severe chronic protein calorie malnutrition based on low poor intake as above. Patient does report poor intake due to chronic abdominal pain. Hopefully this can be addressed by treating her underlying condition as well. Patient was felt to be stable for discharge on the 18 of February. She will go home on oral antibiotics to complete to complete weeks of treatment for her diverticulitis. It was discussed with her that she may require additional antibiotic therapy given the chronic nature of her symptoms and presumably the chronic nature of her infection. She will be followed and seen by outpatient Urology as well to help manage this stone again with expectation may well pass on its own without need for any particular intervention Patient need to be seen in the outpatient clinic by her primary care provider Dr. Castillo in the near term future to ensure continued improvement in stability and make plans for outpatient urology surgery consultations etc Status at Discharge Cognitive/behavioral status at discharge: at baseline, oriented Functional status at discharge: independent ambulation Overall status at discharge: patient is progressing back to baseline Exam Vital Signs (past 8 hours): - 02/18/19 05:00 02/18/19 08:13 02/18/19 08:34 Temperature 97.4 F L Pulse Rate 82 Respiratory Rate 18 Blood Pressure 136/75 136/75 Pulse Oximetry 96 97 02/18/19 09:00 Temperature 98.6 F Pulse Rate 66 Respiratory Rate 16 Blood Pressure 152/87 H Pulse Oximetry 98 Fraction of Inspired Oxygen 21 Oxygen Delivery Method Room Air Oxygen Flow Rate 0 Objective Labs Result Diagrams: 02/18/19 05:50 02/18/19 05:50 Labs: Laboratory Results - last 24 hr 02/18/19 02/18/19 05:50 05:50 WBC 5.5 RBC 3.99 L Hgb 10.8 L Hct 31.8 L MCV 79.8 L MCH 27.1 MCHC 33.9 RDW 13.6 Plt Count 289 Neut % (Auto) 63.7 Lymph % (Auto) 24.0 L [place] % (Auto) 8.1 Eos % (Auto) 2.9 Baso % (Auto) 1.3 Neut # (Auto) 3500 Lymph # (Auto) 1300 [place] # (Auto) 400 Eos # (Auto) 200 Baso # (Auto) 100 Sodium 141 Potassium 3.4 Chloride 108 H Carbon Dioxide 24 BUN 2 L Creatinine 0.50 L Estimated GFR > 60.0 BUN/Creatinine Ratio 4.0 L Glucose 91 Calcium 8.6 Discharge Plan Discharge Plan Patient Disposition: Home Discharge Med Rec/Prescriptions Prescriptions: New tamsulosin [Flomax] 0.4 mg Capsule 0.4 mg PO DAILY Qty: 30 RF: 3 metronidazole 500 mg tablet 500 mg PO TID Qty: 33 RF: 0 cefuroxime axetil 500 mg tablet 500 mg PO BID Qty: 22 RF: 0 ondansetron 4 mg tablet,disintegrating 4 mg PO Q8H PRN (Reason: nausea and vomiting) Qty: 30 RF: 0 Continued coenzyme Q10 [Co Q-10] 100 mg Capsule 200 mg PO DAILY Qty: 0 RF: 0 fluticasone propionate [Flovent HFA] 44 mcg/actuation HFA aerosol inhaler 2 inhalation INHALATION Q12H Qty: 10.6 RF: 0 alprazolam 0.5 mg tablet See Rx Instructions PO BID PRN (Reason: anxiety) Qty: 20 RF: 0 metoprolol succinate 50 mg tablet extended release 24 hr 25 mg PO BID RF: 0 albuterol sulfate [Proventil HFA] 90 MCG/PUFF HFA aerosol inhaler 1 puff IH Q4HP PRN (Reason: Shortness Of Breath) RF: 0 Follow up/Referrals: Rodger Castillo MD [Primary Care Provider] - 1 Week Provider Discharge Instructions Diet: Diet as Tolerated Discharge Data Primary Care Provider: Rodger Castillo Quality VTE Deep Vein Thrombosis/Pulmonary Embolism Present on Admission: No
--- NOTE | 2019-02-18 10:52 | PM.PN.1 ---
Subjective Subjective Date Patient Seen: 02/18/19 Time Patient Seen: 10:52 Interval history: Doing well. No acute overnight events. Tolerated a regular diet without nausea vomiting. Abdominal pain significantly improved. Exam Vital Signs (past 8 hours): - 02/18/19 05:00 02/18/19 08:13 02/18/19 08:34 Temperature 97.4 F L Pulse Rate 82 Respiratory Rate 18 Blood Pressure 136/75 136/75 Pulse Oximetry 96 97 02/18/19 09:00 Temperature 98.6 F Pulse Rate 66 Respiratory Rate 16 Blood Pressure 152/87 H Pulse Oximetry 98 Fraction of Inspired Oxygen 21 Oxygen Delivery Method Room Air Oxygen Flow Rate 0 Narrative Exam Narrative: General adult female no acute distress alert and oriented Abdomen soft nontender nondistended Objective Labs Result Diagrams: 02/18/19 05:50 02/18/19 05:50 Labs: Laboratory Results - last 24 hr 02/18/19 02/18/19 05:50 05:50 WBC 5.5 RBC 3.99 L Hgb 10.8 L Hct 31.8 L MCV 79.8 L MCH 27.1 MCHC 33.9 RDW 13.6 Plt Count 289 Neut % (Auto) 63.7 Lymph % (Auto) 24.0 L [place] % (Auto) 8.1 Eos % (Auto) 2.9 Baso % (Auto) 1.3 Neut # (Auto) 3500 Lymph # (Auto) 1300 [place] # (Auto) 400 Eos # (Auto) 200 Baso # (Auto) 100 Sodium 141 Potassium 3.4 Chloride 108 H Carbon Dioxide 24 BUN 2 L Creatinine 0.50 L Estimated GFR > 60.0 BUN/Creatinine Ratio 4.0 L Glucose 91 Calcium 8.6 Assessment & Plan Assessment & Plan narrative: 68-year-old female with uncomplicated diverticulitis doing well. Tolerating regular diet with resolution of abdominal pain. No fever white count previously normal. Stable for discharge home. Needs screening colonoscopy [address] Morales patient will call the surgery office to schedule. Quality VTE Deep Vein Thrombosis/Pulmonary Embolism Present on Admission: No
--- NOTE | 2019-02-18 11:52 | PC.NURSE ---
Pt dressed and ready for discharge home with Spouse. HL removed. Reviewed d/c information - discussed d/c meds, time of last dose, reminded Pt no alcohol when taking Flagyl, encouraged fluid intake to prevent constipation or dehydration. Pt denies further questions and was taken out via w/c by [facility] to pov with Spouse and all belongings.
--- NOTE | 2019-02-18 15:34 | CM.DPC ---
DCP: continued: Pt was ok'd for d/c to home setting today. She left with her spouse and with ptlan for clinic followup.
== END 2019-02-18 11:51 | disposition home or self-care (01) | DRG 391 ==
LOC: ED 17:29 → AC 21:43
PROVIDERS: Emergency Medicine; Family Medicine; Admitting Provider Family Medicine; Emergency Provider Nurse Practitioner Family; Family Provider Family Medicine; PCP Family Medicine; Visit Provider Family Medicine
DX: K57.32 Diverticulitis of large intestine without perforation or abscess without bleeding (principal); E43 Unspecified severe protein-calorie malnutrition; N13.2 Hydronephrosis with renal and ureteral calculous obstruction; Z68.21 Body mass index [BMI] 21.0-21.9, adult; I10 Essential (primary) hypertension; E78.5 Hyperlipidemia, unspecified; I48.0 Paroxysmal atrial fibrillation; F41.9 Anxiety disorder, unspecified
CPT/HCPCS: 36415; 36591; 74177; 76700; 80048; 80053; 80061; 81015; 83605; 83690; 85025; 87086; 94760; 96361; 96374; 96375; 99222; 99231; 99232; 99233; 99238; 99283; 99285; J0696; J1885; J2405; Q9967

== ENCOUNTER → 2019-02-14 16:04 | Outpatient (CLI) | payer OTHER, SELFPAY | PROVIDERS: Family Provider Family Medicine; PCP Family Medicine; Visit Provider Physician Assistant | DX: R10.9 Unspecified abdominal pain (principal) | CPT/HCPCS: 87086 ==

== ENCOUNTER → 2019-03-08 14:09 | Outpatient (CLI) | payer OTHER, SELFPAY ==
[2019-02-14 22:04] VITALS: BMI 19.7
[2019-03-08 15:08] LABS: Add Manual Diff / Slide Review NO; Basophils Absolute Auto 100 /uL (0-100); Basophils Percent Auto 0.8 % (0-2); Eosinophils Absolute Auto 100 /uL (0-450); Hematocrit 38.7 % (36-46); Hemoglobin 12.6 g/dL (12.0-16.0); Lymphocytes Absolute Auto 1700 /uL (1100-4500); Lymphocytes Percent Auto 24.1 % (25-40); Mean Corpuscular HGB Conc 32.6 % (30-36); Mean Corpuscular Hemoglobin 26.6 PG (26-34); Mean Corpuscular Volume 81.5 fL (80-100); Monocytes Absolute Auto 400 /uL (0-900); Monocytes Percent Auto 5.8 % (3-14); Neutrophils Absolute Auto 4800 /uL (1500-7000); Neutrophils Percent Auto 67.3 % (50-75); Platelet Count 286 X10^3/uL (150-400); Red Blood Cell Count 4.75 X10^6/uL (4.0-5.2); White Blood Cell Count 7.2 X10^3/uL (4.5-11.0)
[2019-03-08 16:12] LABS: Clostridium Difficile Tox PCR Negative for C. diff
== END ==
PROVIDERS: PCP Family Medicine; Visit Provider Family Medicine
DX: K57.92 Diverticulitis of intestine, part unspecified, without perforation or abscess without bleeding (principal)
CPT/HCPCS: 36415; 85025; 87493

== ENCOUNTER 2019-03-23 06:29 | Day surgery (SDC) | payer OTHER, SELFPAY ==
[2019-03-23] VITALS (8 sets, daily range): BP systolic 107–160; BP diastolic 63–82; PULSE 66–101; RESP 8–17; TEMP 36–36.8; O2SAT 94–100; BMI 19.3
--- NOTE | 2019-03-23 | PATH_ITS ---
[facility] Accession Number: [id number] . 01 Material submitted: . body - LESION @15 CM . 01 Clinical history: . SCREENING COLONOSCOPY . 02 Diagnosis: Colon Lesion at 15 cm, Biopsy: Invasive adenocarcinoma, moderately differentiated. Lymphovascular invasion not identified. . IMMUNOHISTOCHEMISTRY TESTING FOR MISMATCH REPAIR PROTEINS: . MLH1: Intact nuclear expression. MSH2: Intact nuclear expression. MSH6: Intact nuclear expression. PMS2: Intact nuclear expression. Background nonneoplastic tissue/internal control with intact nuclear expression. . INTERPRETATION: No loss of nuclear expression of MMR proteins: low probability of microsatellite instability-high (MSI-H)* . * There are exceptions to the above IHC interpretations. These results should not be considered in isolation, and clinical correlation with genetic counseling is recommended to assess the need for germline testing. MRV 03/27/2019 1402 Local . 02 Comment: As part of routine customer quality specialist, Dr. Pagan has reviewed this case and agrees with the diagnosis of invasive adenocarcinoma. The finding of invasive adenocarcinoma was reported to Dr. Morales via his RN Griselda by Dr. Jain on 03/24/2019 at 10:55 a.m. . 02 Electronically signed: . Job Jain MD, PhD, Pathologist NPI- [id number] . 01 Gross description: . LESION @15 CM: Received in formalin are multiple fragment(s) of jennings, soft tissue measuring 0.2 x 0.2 x 0.2 cm to 0.3 x 0.3 x 0.3 cm which is entirely submitted and submitted entirely in 1 cassette(s) [place] [place]/23/2019 1850 Local . 02 Microscopic: . The carcinoma cells show intact nuclear expression of MLH1, PMS2, MSH2 and MSH6 by immunohistochemistry. Control stains show appropriate reactivity. . * This test was developed and its performance characteristics determined by [facility]. It has not been cleared or approved by the U.S. Food and Drug Administration. The FDA has determined that such clearance or approval is not necessary. This test is used for clinical purposes. It should not be regarded as investigational or for research. . 02 Pathologist provided ICD-10: C18.9 . 02 CPT . 555052, O98103, D65951 Performed at: 01 [facility] [address] [id number] MD Thanh Hwang MD Phone: [phone] Performed at: 02 [facility] [address] [place], [place] [id number] MD Sierra Pagan MD Phone: [phone]
--- NOTE | 2019-03-23 08:13 | PM.HP.1 ---
History of Present Illness History of Present Illness Date Patient Seen: 03/23/19 Time Patient Seen: 08:00 Chief complaint: [id number] SCREENING COLONOSCOPY Narrative: The patient is a woman who was treated for acute and chronic diverticulitis about a month ago in the hospital. She is here for her 1st colonoscopy. It is to evaluate the segment involved and screen her for colon cancer Patient History Medical History Anxiety about health (Chronic) Asthma (Acute) Atrial fibrillation (Chronic) Benign essential HTN (Chronic) Diverticulitis (Chronic) Hemangioma of liver (Chronic) History of headache (Acute) History of UTI (Acute) Hydronephrosis with urinary obstruction due to renal calculus (Chronic) Hyperlipidemia, unspecified (Chronic) Impaired vision (Acute) Kidney stones (Acute) Menopause (Inactive) Osteoporosis, unspecified (Chronic) Panic disorder (Chronic 03/26/11) Sinus drainage (Acute) Family History (Updated 02/15/19 @ 14:37 by Jason Morales MD) Father Cancer Social History household members: spouse Smoking Status: Never smoker alcohol intake: never substance use type: does not use Family & Social History Family History Father Cancer Social History: household members spouse Tobacco & Substance use: Smoking Status Never smoker alcohol intake never alcohol intake frequency 0-2 drinks per day Substance Use Type does not use Meds Home Medications and Allergies Home Medications Medication Instructions Recorded Confirmed Type coenzyme Q10 [Co Q-10] 200 mg PO DAILY #0 03/28/12 03/23/19 History fluticasone propionate 44 2 inhalation INHALATION Q12H #10.6 11/02/17 03/23/19 Rx mcg/actuation HFA aerosol inhaler gram albuterol sulfate [Proventil HFA] 1 puff IH Q4HP PRN 12/21/17 03/23/19 History alprazolam 0.5 mg tablet See Rx Instructions PO BID PRN #20 12/28/17 03/23/19 Rx tab tamsulosin [Flomax] 0.4 mg PO DAILY #30 cap 02/18/19 03/23/19 Rx metoprolol tartrate 37.5 mg PO BID 03/23/19 03/23/19 History Allergies Allergy/AdvReac Type Severity Reaction Status Date / Time Penicillins [PENICILLINS] Allergy Intermediate Rash Verified 03/23/19 07:22 metronidazole AdvReac Intermediate makes Verified 03/13/19 09:25 throat feel swollen, hard to swallow ciprofloxacin [From Cipro] AdvReac Mild Dizzy, Verified 03/23/19 07:22 disoriented Review of Systems Review of Systems ROS Unobtainable: All systems reviewed & are unremarkable except as noted in HPI and below Genitourinary Comments: Has a stone in her right ureteral system causing hydronephrosis. Under the care of Dr. Yoon Exam Vital Signs (past 8 hours): - 03/23/19 07:26 Temperature 98.3 F Pulse Rate 66 Respiratory Rate 16 Blood Pressure 150/79 H Pulse Oximetry 100 Oxygen Delivery Method Room Air Narrative Exam Narrative: Pleasant cooperative patient no apparent distress. Lungs are clear to auscultation. No rales or rhonchi. Heart regular rate and rhythm no murmur gallop. Abdomen is soft nontender without mass. No obvious hernias. Patient is alert and oriented x3. Assessment & Plan Assessment and plan (1) Diverticulitis large intestine: Current visit: Yes Status: Acute (2) Ureteral stone with hydronephrosis: Current visit: Yes Status: Acute Assessment & Plan narrative: The patient for a screening colonoscopy. I have discussed the procedure with them. Risks of bleeding, perforation which would necessitate major operation, failure to find remove all lesions, the potential tattoo were all discussed. All questions were answered. They wished to proceed.
--- NOTE | 2019-03-23 08:18 | PM.PREOP ---
Pre-operative Note Interval Note History & Physical reviewed/Exam performed by Physician: Yes Changes to H&P: No ASA Class (for procedural sedation): II
[2019-03-23] MEDS: SODIUM CHLORIDE 0.9% 1,000 ML 200 ML IV (08:23)
--- NOTE | 2019-03-23 08:45 | PM.OP.ENDO ---
Operative Date/Time/Diagnoses Date of procedure: 03/23/19 Time of procedure: 08:39 Pre-op diagnosis: History of diverticulitis rule out malignancy. Post-op diagnosis: same (Obstructing lesion at 15 cm from the anal verge. Biopsies taken.) Procedure & Clinicians Study performed: Flexible sigmoidoscopy with cold biopsy. Colonoscopy unable to to be performed due to near obstructing lesion. Same procedure as scheduled: No Indications: Diagnostic Surgeon: Jason Morales Procedure Notes SCOAP/Timeout: Performed Procedure in detail: The patient was placed in left lateral decubitus position underwent IV sedation directed by the surgeon consisting of fentanyl and Versed. Digital exam was unremarkable. The pediatric colonoscope was inserted and advanced to a level of 15 cm. At this point I encountered narrowing inflammation and a near obstruction. The opening was so small that I could not get the scope through it. The mucosa was grossly abnormal distal to the obstruction and biopsies were taken of this area. I could not tell if this was inflammatory or malignant. The scope was removed and the patient tolerated the procedure well Scope withdrawal time: Not applicable Sedation minutes: 15 Findings: possible cancer Specimen(s): other (Obstructing lesion) Complications: none Post-procedure Recommendations: Will call with biopsy results Follow up: weeks (One) Disposition: PACU
[2019-03-23] MEDS: MIDAZOLAM 5 MG/5 ML VIAL IV (08:46)
[2019-03-23] MEDS: fentaNYL 250 MCG/5 ML INJ IV (08:47)
[2019-03-23] MEDS: ONDANSETRON 4 MG/2 ML INJ IV (09:03)
== END 2019-03-23 09:44 | disposition home or self-care (01) ==
PROVIDERS: PCP Family Medicine; Visit Provider Specialist
PROC: 0DJD8ZZ Inspection of Lower Intestinal Tract, Via Natural or Artificial Opening Endoscopic (ICD-10-PCS; CPT 45378; principal; 2019-03-23 07:45)
DX: Z12.11 Encounter for screening for malignant neoplasm of colon (principal); K57.32 Diverticulitis of large intestine without perforation or abscess without bleeding; K80.20 Calculus of gallbladder without cholecystitis without obstruction; C18.9 Malignant neoplasm of colon, unspecified
CPT/HCPCS: 45331; 74022; 99152; J2250; J2405; J3010

== ENCOUNTER → 2019-03-23 16:54 | Outpatient (CLI) | payer OTHER, SELFPAY ==
[2019-03-23 16:24] VITALS: BMI 19.7
--- NOTE | 2019-03-23 16:56 | DI.RAD.S_ITS ---
PROCEDURE: XR ACUTE ABDOMEN SERIES INDICATIONS: Post colonoscopy pain rule out free air TECHNIQUE: One view chest and two views of the abdomen were acquired. COMPARISON: [facility], CT, CT KUB, 03/16/2019, 12:03. FINDINGS: Surgical changes and devices: None. Chest: Lungs demonstrate hyperinflation and hyperlucency, but are are clear. Heart size is normal. No pleural effusions. No pneumoperitoneum. Abdomen: Bowel gas pattern is normal. Probable cholelithiasis. No suspicious calcifications. Visualized solid organ contours appear normal. Bones: No suspicious bony lesions. IMPRESSION: 1. No evidence of pneumoperitoneum post colonoscopy. 2. Hyperinflated lungs consistent with asthma or emphysema. 3. Cholelithiasis. Dictated by: Babita Singleton M.D. on 03/23/2019 at 17:30 Approved by: Babita Singleton M.D. on 03/23/2019 at 17:33
== END ==
PROVIDERS: PCP Family Medicine; Visit Provider Specialist
DX: K57.32 Diverticulitis of large intestine without perforation or abscess without bleeding (principal); K80.20 Calculus of gallbladder without cholecystitis without obstruction
CPT/HCPCS: 74022

== ENCOUNTER → 2019-05-01 11:00 | Outpatient (CLI) | payer OTHER, SELFPAY ==
[2019-03-23 16:24] VITALS: BMI 19.7
== END ==
PROVIDERS: PCP Family Medicine; Visit Provider Family Medicine
DX: I48.0 Paroxysmal atrial fibrillation (principal)
CPT/HCPCS: 93005

== ENCOUNTER 2019-12-31 09:03 | Emergency (ER) | payer OTHER, SELFPAY ==
[2019-03-23 16:24] VITALS: BMI 19.7
[2019-12-31] VITALS (8 sets, daily range): BP systolic 99–130; BP diastolic 51–71; PULSE 63–89; RESP 15–16; TEMP 36.8; O2SAT 98–100
--- NOTE | 2019-12-31 09:42 | ED.NAVMDI ---
HPI - Nausea/Vomiting/Diarrhea General Chief complaint: Nausea/Vomiting/Diarrhea Stated complaint: Severe diarrhea post-chemo & radiation, nausea Time Seen by Provider: 12/31/19 09:10 Source: patient Mode of arrival: Ambulatory Limitations: no limitations History of Present Illness HPI Narrative: The patient presents with diarrhea. Over recent months she was admitted here with diverticulitis. Follow-up colonoscopy revealed cancer, she underwent a resection. She has an ileostomy. She suffered abscesses after the surgery, requiring drainage. She is currently receiving chemo and radiation therapy in [place], [place]. She has required admission at [facility] with hypernatremia. She last received chemo and radiation last week. Diarrhea persists, perhaps not as bad as she has experienced in recent weeks. She is eating. She has normal urine output. However, she is not feeling well, she feels like she has hyponatremia again. She is having no fever or chills. She is having no nausea vomiting. There is no obvious blood in the diarrhea. She has some cramping, but not severe abdominal discomfort. She denies chest pain, dyspnea, dizziness, or near syncope. She has no peripheral edema or calf tenderness. Related Data Home Medications Medication Instructions Recorded Confirmed metoprolol tartrate 25 mg tablet 25 mg PO BID tab 12/28/19 12/28/19 Previous Rx's Medication Instructions Recorded fluticasone propionate 44 2 inhalation INHALATION Q12H #10.6 11/02/17 mcg/actuation HFA aerosol inhaler gram alprazolam 0.5 mg tablet See Rx Instructions PO BID PRN #20 07/03/19 tab pilocarpine HCl 5 mg tablet 5 mg PO TID #90 tab 07/03/19 Allergies Allergy/AdvReac Type Severity Reaction Status Date / Time Penicillins [PENICILLINS] Allergy Intermediate Rash Verified 12/28/19 15:38 metronidazole AdvReac Intermediate makes Verified 12/28/19 15:38 throat feel swollen, hard to swallow ciprofloxacin [From Cipro] AdvReac Mild Dizzy, Verified 12/28/19 15:38 disoriented Review of Systems Review of Systems ROS Unobtainable: All systems reviewed & are unremarkable except as noted in HPI and below Constitutional Constitutional: Denies chills, Denies fever(s), Reports headache(s), Denies lethargy and Reports weakness ENT Ears, Nose, Mouth, and Throat: Reports headache(s) and Denies sore throat Cardiovascular Cardiovascular: Denies chest pain, Denies irregular heart rhythm, Denies lightheadedness, Denies palpitations, Denies dyspnea and Denies orthopnea Respiratory Respiratory: Denies cough, Denies dyspnea and Denies wheezing Gastrointestinal Gastrointestinal: Reports abdominal pain, Denies melena, Denies hematochezia, Reports diarrhea, Denies nausea and Denies vomiting Genitourinary Genitourinary: Denies dysuria Genitourinary: Denies dysuria Musculoskeletal Musculoskeletal: Denies back pain Integumentary/Breasts Skin/Breast: Denies pruritus, Denies erythema, Denies rash and Denies wounds Neurologic Neurologic: Denies confusion, Reports headache(s) and Reports weakness Psychiatric Psychiatric: Denies anxiety and Denies confusion Endocrine Endocrine: Denies palpitations Allergic/Immunologic Allergic/Immunologic: Denies wheezing Patient History Medical History Anxiety about health (Chronic) Asthma (Acute) Atrial fibrillation (Chronic) Benign essential HTN (Chronic) Diverticulitis (Chronic) Hemangioma of liver (Chronic) History of headache (Acute) History of UTI (Acute) Hydronephrosis with urinary obstruction due to renal calculus (Chronic) Hyperlipidemia, unspecified (Chronic) Impaired vision (Acute) Kidney stones (Acute) Menopause (Inactive) Osteoporosis, unspecified (Chronic) Panic disorder (Chronic 03/26/11) Sinus drainage (Acute) Family History Father Cancer Social History household members: spouse Smoking Status: Never smoker alcohol intake: never substance use type: does not use Smoking Status: Never smoker alcohol intake frequency: holidays/special occasions only Substance Use Type: does not use Exam Initial Vital Signs Initial Vital Signs: Vital Signs Temperature 98.3 F 12/31/19 09:12 Pulse Rate 89 12/31/19 09:12 Respiratory Rate 16 12/31/19 09:12 Blood Pressure 130/71 12/31/19 09:12 Pulse Oximetry 99 12/31/19 09:12 Const General: cooperative and well developed Nutritional Appearance: well nourished HENUT Head: normal to inspection and normocephalic Mouth: oral mucosae normal Throat: posterior oropharynx normal Neck Neck: supple and No JVD Resp Effort & Inspection: normal respiratory effort and able to speak in complete sentences Auscultation: clear to auscultation bilaterally, no rales, no rhonchi and no wheezes Cardio Rate: regular rate Rhythm: regular rhythm Heart Sounds: S1 normal, S2 normal, no click, no gallops, no murmurs and no rubs Pulses: normal peripheral pulses GI Inspection: non-distended Palpation: soft, no hepatosplenomegaly, No guarding and tender (Mildly tender around the ileostomy site.) Auscultation: normal bowel sounds General: No CVA tenderness Back/Spine/Pelvis Back: normal to inspection Skin General: no rashes or lesions noted, No jaundice and No petechiae Neuro General: patient alert, patient oriented x3, gait normal and no focal motor deficits Speech: speech normal Extrem General: full ROM, no pedal edema and no calf tenderness Psych Appearance: well kempt Mental Status: mental status grossly normal Course Course Course Narrative: The patient's electrolytes and CBC are reassuring. She is improving after receiving IV fluids along. We discussed chemotherapy and the diarrhea, she has now finished her course. Hopefully diarrhea improves without further intervention. She is advised to return the ER as necessary. Orders Ordered: Discontinued Medications Heparin Sodium (Porcine) (Heparin Flush (Port)) 500 unit IV PRN PRN PRN Reason: Flush Sodium Chloride (Normal Saline 0.9%) 1,000 mls @ 250 mls/hr IV CONT JOSE Last Infusion: 12/31/19 13:30 Dose: 0 mls/hr Documented by: Admin: 12/31/19 09:51 Dose: 250 mls/hr Documented by: EVETTE Vital Signs Vital signs: Vital Signs - 8 hr 12/31/19 11:45 12/31/19 11:59 12/31/19 12:00 Pulse Rate 68 63 Respiratory Rate 15 Blood Pressure 105/51 L 105/52 L Pulse Oximetry 98 98 12/31/19 12:30 12/31/19 13:00 12/31/19 13:30 Pulse Rate 72 69 67 Respiratory Rate Blood Pressure 104/59 L 101/53 L 99/51 L Pulse Oximetry 98 100 99 12/31/19 14:00 Pulse Rate 71 Respiratory Rate Blood Pressure 104/52 L Pulse Oximetry 99 MDM - Nausea/Vomiting/Diarrhea Lab Data Result diagrams: 12/31/19 09:30 12/31/19 09:30 Labs: Lab Results 12/31/19 12/31/19 Range/Units 09:30 09:30 WBC 4.7 (4.5-11.0) X10^3/uL RBC 3.67 L (4.0-5.2) X10^6/uL Hgb 12.1 (12.0-16.0) g/dL Hct 35.5 L (36-46) % MCV 96.9 (80-100) fL MCH 33.1 (26-34) PG MCHC 34.1 (30-36) % RDW 15.8 H (11.6-14.8) % Plt Count 284 (150-400) X10^3/uL Neut % (Auto) 80.0 H (50-75) % Lymph % (Auto) 4.5 L (25-40) % [place] % (Auto) 14.5 H (3-14) % Eos % (Auto) 0.5 L (2-4) % Baso % (Auto) 0.5 (0-2) % Neut # (Auto) 3800 (6217-3424) /uL Lymph # (Auto) 200 L (6744-3654) /uL [place] # (Auto) 700 (0-900) /uL Eos # (Auto) 0 (0-450) /uL Baso # (Auto) 0 (0-100) /uL Sodium 130 L (137-145) mmol/L Potassium 4.5 (3.4-5.1) mmol/L Chloride 94 L (98-107) mmol/L Carbon Dioxide 28 (22-32) mmol/L BUN 11 (7-17) mg/dL Creatinine 1.10 H (0.52-1.04) mg/dL Estimated GFR 49.0 L (>60) mL/min BUN/Creatinine Ratio 10.0 (6-22) Glucose 104 (80-110) mg/dL Calcium 9.7 (8.4-10.2) mg/dL Total Bilirubin 0.7 (0.2-1.3) mg/dL AST 21 (14-36) IU/L ALT 8 (<35) IU/L Alkaline Phosphatase 121 (38-126) U/L Total Protein 6.7 (6.3-8.2) g/dL Albumin 3.6 (3.5-5.0) g/dL Globulin 3.1 (1.7-4.1) g/dL Albumin/Globulin Ratio 1.2 (1.0-2.8) Lipase 165 (23-300) U/L Discharge Plan Departure Patient Disposition: Home Clinical Impression: Diarrhea with dehydration Discharge Date/Time: 12/31/19 14:20 Instructions: DI for Dehydration -- Adult Activity Restrictions/Additional Instructions: Continue best to be sure you are taking in plenty of fluids and appropriate nutrition. Now that your off chemo, hopefully symptoms improve, but you should follow-up with her doctor regardless. Return here for weakness, dizziness, fever or if you feel the diarrhea is severe enough to require repeat evaluation. Prescriptions: No Action fluticasone propionate [Flovent HFA] 44 mcg/actuation HFA aerosol inhaler 2 inhalation INHALATION Q12H Qty: 10.6 RF: 0 alprazolam 0.5 mg tablet See Rx Instructions PO BID PRN (Reason: anxiety) Qty: 20 RF: 0 pilocarpine HCl 5 mg tablet 5 mg PO TID Qty: 90 RF: 5 metoprolol tartrate 25 mg tablet 25 mg PO BID RF: 0 Referrals: Rdoger Castillo MD [Primary Care Provider] -
[2019-12-31] MEDS: SODIUM CHLORIDE 0.9% 1,000 ML 250 ML IV (09:51)
[2019-12-31 09:52] LABS: Add Manual Diff / Slide Review NO; Basophils Absolute Auto 0 /uL (0-100); Basophils Percent Auto 0.5 % (0-2); Eosinophils Absolute Auto 0 /uL (0-450); Eosinophils Percent Auto 0.5 % (2-4); Hematocrit 35.5 % (36-46); Hemoglobin 12.1 g/dL (12.0-16.0); Lymphocytes Absolute Auto 200 /uL (1100-4500); Lymphocytes Percent Auto 4.5 % (25-40); Mean Corpuscular HGB Conc 34.1 % (30-36); Mean Corpuscular Hemoglobin 33.1 PG (26-34); Mean Corpuscular Volume 96.9 fL (80-100); Monocytes Absolute Auto 700 /uL (0-900); Monocytes Percent Auto 14.5 % (3-14); Neutrophils Absolute Auto 3800 /uL (1500-7000); Platelet Count 284 X10^3/uL (150-400); Red Blood Cell Count 3.67 X10^6/uL (4.0-5.2); Red Cell Distribution Width 15.8 % (11.6-14.8); White Blood Cell Count 4.7 X10^3/uL (4.5-11.0)
[2019-12-31 09:56] LABS: Alanine Aminotransferase 8 IU/L (<35); Albumin 3.6 g/dL (3.5-5.0); Albumin Globulin Ratio 1.2 (1.0-2.8); Alkaline Phosphatase 121 U/L (38-126); Aspartate Aminotransferase 21 IU/L (14-36); Bilirubin Total 0.7 mg/dL (0.2-1.3); Blood Urea Nitrogen 11 mg/dL (7-17); Calcium 9.7 mg/dL (8.4-10.2); Carbon Dioxide 28 mmol/L (22-32); Chloride 94 mmol/L (98-107); Globulin 3.1 g/dL (1.7-4.1); Glucose 104 mg/dL (80-110); HEMOLYSIS < 15 (0-50); Lipase 165 U/L (23-300); Potassium 4.5 mmol/L (3.4-5.1); Sodium 130 mmol/L (137-145); Total Protein 6.7 g/dL (6.3-8.2)
== END 2019-12-31 14:20 | disposition home or self-care (01) ==
PROVIDERS: Emergency Provider Emergency Medicine; PCP Family Medicine
DX: R19.7 Diarrhea, unspecified (principal); E86.0 Dehydration; R51 Headache; R10.9 Unspecified abdominal pain; C19 Malignant neoplasm of rectosigmoid junction
CPT/HCPCS: 36415; 80053; 83690; 85025; 93005; 96360; 96361; 99284; J1642

== ENCOUNTER 2021-06-30 00:59 | Emergency (ER) | payer OTHER, SELFPAY ==
[2019-03-23 16:24] VITALS: BMI 19.7
[2021-06-30] VITALS (12 sets, daily range): BP systolic 107–155; BP diastolic 56–99; PULSE 67–162; RESP 2–25; TEMP 37.2; O2SAT 95–99; BMI 23.6
--- NOTE | 2021-06-30 01:01 | ED_ITS ---
HPI - Chest Pain General Chief Complaint: Arrhythmia/Palpitations Stated Complaint: afib x45 min Time Seen by Provider: 06/30/21 01:01 History of Present Illness HPI narrative: 70-year-old female nonsmoker with history of atrial fibrillation, hypertension, hemangioma of the liver, and prior rectal cancer treated with chemo radiation presents with her in the chief complaint of rapid atrial fibrillation for the past few hours. She has a known history of AFib and has not been a nticoagulated for the past few weeks. She has been in her normal state of health and denies any other medication changes. She states did she is slightly short of breath and a bit dizzy but denies any chest pain, perhaps she is a bit fatigued. She is not near as symptomatic as she was when seen under similar circumstances in March. She denies any fever chills. She has had a runny nose, sore throat or cough. Related Data Previous Rx's Medication Instructions Recorded alprazolam 0.5 mg tablet 0.25 - 0.5 mg PO DAILY PRN #10 tab 06/21/20 metoprolol succinate 25 mg 25 mg PO BID #180 tab 11/18/20 tablet,extended release 24 hr apixaban 5 mg tablet (Eliquis) 5 mg PO BID #60 tab 06/30/21 Allergies Allergy/AdvReac Type Severity Reaction Status Date / Time Penicillins [PENICILLINS] Allergy Intermediate Rash Verified 06/21/20 09:27 metronidazole AdvReac Intermediate makes Verified 06/21/20 09:27 throat feel swollen, hard to swallow ciprofloxacin [From Cipro] AdvReac Mild Dizzy, Verified 06/21/20 09:27 disoriented Review of Systems Review of Systems Narrative: GENERAL: See HPI HEENT: Denies sinus pain, ear pain, sore throat, difficulty swallowing, dizziness. RESPIRATORY: See HPI CARDIOVASCULAR: See HPI GASTROINTESTINAL: Denies nausea, vomiting, abdominal pain, diarrhea, constipation, melena. : Denies dysuria, frequency, incontinence, hematuria, urinary retention. MUSCULOSKELETAL: denies weakness, joint pain, or bony pain SKIN: Denies rash, skin lesions, or other NEUROLOGIC: Denies weakness, headache, numbness, change in speech, confusion, seizures, incoordination. PSYCHIATRIC: No concerning psychosocial issues. 12 point review of systems is negative except for those stated above Patient History Medical History Asthma Atrial fibrillation Benign essential HTN Diverticulitis large intestine Hemangioma of liver Hydronephrosis with urinary obstruction due to renal calculus Ileostomy in place Impaired vision Kidney stones Menopause Mixed hyperlipidemia Osteoporosis, unspecified Rectosigmoid cancer Sinus drainage Family History Father Cancer Social History household members: spouse Smoking Status: Never smoker alcohol intake: never substance use type: does not use Smoking Status: Never smoker alcohol intake frequency: holidays/special occasions only Substance Use Type: does not use Exam Narrative Exam Narrative: GENERAL: [70 year old patient appears stated age. Well-developed patient, in mild distress. HEAD: Atraumatic. Normocephalic. EYES: Pupils equal round and reactive. Extraocular motions intact. No scleral icterus. No injection or drainage. ENT: Nose without bleeding, purulent drainage. Throat without erythema, tonsillar hypertrophy or exudate. Airway patent. NECK: Trachea midline. Non tender CARDIOVASCULAR: Rapid and irregular rhythm without murmurs, gallops, or rubs. RESPIRATORY: Clear to auscultation. Breath sounds equal bilaterally. No wheezes, rales, or rhonchi. GASTROINTESTINAL: Abdomen soft, non-tender, nondistended. EXTREMITIES: No edema or joint tenderness. BACK: Nontender without deformity or crepitance. No flank tenderness. NEURO: AOx3. SKIN: No rash or erythema of visible areas Initial Vital Signs Initial Vital Signs: Vital Signs Temperature 99.0 F 06/30/21 01:02 Pulse Rate 158 H 06/30/21 01:02 Respiratory Rate 20 06/30/21 01:02 Blood Pressure 136/96 H 06/30/21 01:02 Pulse Oximetry 97 06/30/21 01:02 Procedures Cardioversion Consent Signed: Yes Indication: Rapid AFib with ST depressions Stability: Unstable Number of attempts (shocks): 1 Joules used: 120 Cardiac rhythm post-cardioversion: Normal sinus rhythm in the 70s Procedural Sedation Consent signed: Yes Time out performed: Yes Indication: cardioversion Presedation Evaluation: Patient is minimally symptomatic though EKG does show ST depressions in lateral leads ASA Class: III Time of Last PO Intake: 22:30 Preparation: monitoring tech applied, pulse oximeter, capnometry used, supplemental O2 applied, suction/airway equipment at bedside and IV secured IV Propofol dose (mg): 40 Intraservice time/total sedation time (min): 12 ED Sedation Level: Moderate (Concious) Patient Tolerated Procedure: Well Complications: none Course Orders Ordered: ED Orders 06/30/21 EKG-12 Lead Routine 06/30/21 01:02 EKG-12 Lead Stat 06/30/21 01:10 COVID19 -Nasal swab/Pre-Proc Stat Complete Blood Count AUTO DIFF Stat Comprehensive Metabolic Panel Stat Magnesium Stat Troponin & CK Cardiac Panel Stat Discontinued Medications Apixaban (Apixaban 5 Mg Tablet) 5 mg PO NOW ONE Stop: 06/30/21 01:30 Last Admin: 06/30/21 01:56 Dose: 5 mg Documented by: ALL Propofol (Propofol 200 Mg/20 Ml Vial) 55 mg 1 mg/kg (55 mg) IV NOW ONE Stop: 06/30/21 01:30 Last Admin: 06/30/21 01:44 Dose: 40 mg Documented by: ALL Vital Signs Vital signs: Vital Signs - 8 hr 06/30/21 01:02 06/30/21 01:05 06/30/21 01:06 Temperature 99.0 F Pulse Rate 158 H 162 H Respiratory Rate 20 22 Blood Pressure 136/96 H 136/99 H Pulse Oximetry 97 98 06/30/21 01:30 06/30/21 01:40 06/30/21 01:45 Temperature Pulse Rate 88 100 H 75 Respiratory Rate 25 H 2 L 20 Blood Pressure 155/80 H 145/81 H Pulse Oximetry 96 97 99 06/30/21 01:50 06/30/21 01:55 06/30/21 02:00 Temperature Pulse Rate 79 75 72 Respiratory Rate 12 21 24 Blood Pressure 125/59 L 123/56 L 115/57 L Pulse Oximetry 96 96 96 06/30/21 02:05 06/30/21 02:10 06/30/21 02:15 Temperature Pulse Rate 73 68 67 Respiratory Rate 23 23 14 Blood Pressure 115/60 121/56 L 107/60 Pulse Oximetry 95 96 97 MDM - Chest Pain Lab Data Result diagrams: 06/30/21 01:10 06/30/21 01:10 Labs: Lab Results 06/30/21 06/30/21 06/30/21 Range/Units 01:10 01:10 01:10 WBC 4.6 (4.5-11.0) X10^3/uL RBC 5.09 (4.0-5.2) X10^6/uL Hgb 14.5 (12.0-16.0) g/dL Hct 42.9 (36-46) % MCV 84.3 (80-100) fL MCH 28.5 (26-34) PG MCHC 33.8 (30-36) % RDW 13.5 (11.6-14.8) % Plt Count 231 (150-400) X10^3/uL Neut % (Auto) 45.4 L (50-75) % Lymph % (Auto) 43.1 H (25-40) % [place] % (Auto) 9.2 (3-14) % Eos % (Auto) 0.7 L (2-4) % Baso % (Auto) 1.6 (0-2) % Neut # (Auto) 2100 (9217-1618) /uL Lymph # (Auto) 2000 (5199-3848) /uL [place] # (Auto) 400 (0-900) /uL Eos # (Auto) 0 (0-450) /uL Baso # (Auto) 100 (0-100) /uL Sodium 139 (137-145) mmol/L Potassium 3.3 L (3.4-5.1) mmol/L Chloride 106 (98-107) mmol/L Carbon Dioxide 26 (22-32) mmol/L BUN 20 H (7-17) mg/dL Creatinine 0.93 (0.52-1.04) mg/dL Estimated GFR 59.3 L (>60) mL/min BUN/Creatinine Ratio 21.5 (6-22) Glucose 120 H (80-110) mg/dL Calcium 10.0 (8.4-10.2) mg/dL Magnesium 1.9 (1.6-2.3) mg/dL Total Bilirubin 0.5 (0.2-1.3) mg/dL AST 34 (14-36) IU/L ALT 19 (<35) IU/L Alkaline Phosphatase 102 (38-126) U/L Total Creatine Kinase 50 (30-135) U/L CK-MB (CK-2) TNP CK-MB (CK-2) Rel Index TNP Troponin I < 0.012 (0.01-0.034) ng/mL Total Protein 7.6 (6.3-8.2) g/dL Albumin 4.5 (3.5-5.0) g/dL Globulin 3.1 (1.7-4.1) g/dL Albumin/Globulin Ratio 1.5 (1.0-2.8) SARS-CoV-2 (PCR) Negative (Negative) Point of Care Testing Test Results Not applicable MDM Narrative Medical decision making narrative: Patient with known AFib and prior anticoagulation presents with minimal symptoms but concerning EKG changes in the setting of rapid AFib. We discussed the risks and benefits of cardioversion and agree that she is low risk given she has only been in AFib for few hours and that the ST depressions on her EKG are concerning and warrant this procedure. She tolerated the medications well and was converted to a sinus rhythm after 1 shock. She was observed for the required an appropriate time frame and remained asymptomatic. She was given a 1st dose of Eliquis here given her chads Vasc score of 2 and electroc ardioversion. She was given a coupon book for 1 month of free Eliquis and prescription was sent to her pharmacy of choice. Return precautions discussed and questions answered to her apparent satisfaction Discharge Plan Departure Patient Disposition: Home Clinical Impression: Atrial fibrillation Instructions: DI for Atrial Fibrillation Activity Restrictions/Additional Instructions: *You have been diagnosed with [atrial fibrillation with rapid ventricular response and ST depressions converted to sinus rhythm with electrocardioversion. *What to do: *Please continue to take your regular medications as directed. [ x] New medication prescriptions sent to your pharmacy: [[facility] in [place] ] [ ] New medication written as a paper prescription [ ] No new medications given *Please follow up with your primary care provider in 2-3 days, call for an appointment. Let them know you were seen in the Emergency Department and that we ask that you be seen in follow up. We will electronically transmit a record of today's note if your PCP is in our system *If you do not have a primary care provider please contact the [facility] Resource line at [phone]. They will ask some questions about your medical history and help get you set up with a doctor in the community. *Return to Emergency Department if you should have any new, worsening or concerning symptoms, such as [fever greater than 101 F, shaking chills, worsening pain, persistent vomiting or other bothersome symptoms] Prescriptions: New Eliquis 5 mg tablet 5 mg PO BID Qty: 60 0RF No Action metoprolol succinate 25 mg tablet extended release 24 hr 25 mg PO BID Qty: 180 1RF alprazolam 0.5 mg tablet 0.25 - 0.5 mg PO DAILY PRN (Reason: anxiety) Qty: 10 5RF Referrals: Porter Vallecillo MD [Primary Care Provider] -
[2021-06-30 01:21] LABS: Add Manual Diff / Slide Review NO; Basophils Absolute Auto 100 /uL (0-100); Basophils Percent Auto 1.6 % (0-2); Eosinophils Absolute Auto 0 /uL (0-450); Eosinophils Percent Auto 0.7 % (2-4); Hematocrit 42.9 % (36-46); Hemoglobin 14.5 g/dL (12.0-16.0); Lymphocytes Absolute Auto 2000 /uL (1100-4500); Lymphocytes Percent Auto 43.1 % (25-40); Mean Corpuscular HGB Conc 33.8 % (30-36); Mean Corpuscular Hemoglobin 28.5 PG (26-34); Mean Corpuscular Volume 84.3 fL (80-100); Monocytes Absolute Auto 400 /uL (0-900); Monocytes Percent Auto 9.2 % (3-14); Neutrophils Absolute Auto 2100 /uL (1500-7000); Neutrophils Percent Auto 45.4 % (50-75); Platelet Count 231 X10^3/uL (150-400); Red Blood Cell Count 5.09 X10^6/uL (4.0-5.2); Red Cell Distribution Width 13.5 % (11.6-14.8); White Blood Cell Count 4.6 X10^3/uL (4.5-11.0)
[2021-06-30 01:32] LABS: Alanine Aminotransferase 19 IU/L (<35); Albumin 4.5 g/dL (3.5-5.0); Albumin Globulin Ratio 1.5 (1.0-2.8); Alkaline Phosphatase 102 U/L (38-126); Aspartate Aminotransferase 34 IU/L (14-36); BUN Creatinine Ratio 21.5 (6-22); Bilirubin Total 0.5 mg/dL (0.2-1.3); Blood Urea Nitrogen 20 mg/dL (7-17); Carbon Dioxide 26 mmol/L (22-32); Chloride 106 mmol/L (98-107); Creatine Kinase 50 U/L (30-135); Estimated Glomerular Filt Rate 59.3 mL/min (>60); Globulin 3.1 g/dL (1.7-4.1); Glucose 120 mg/dL (80-110); HEMOLYSIS 18 (0-50); Magnesium 1.9 mg/dL (1.6-2.3); Potassium 3.3 mmol/L (3.4-5.1); Sodium 139 mmol/L (137-145); Total Protein 7.6 g/dL (6.3-8.2)
[2021-06-30 01:33] LABS: COVID19 -Nasal RAPID Negative (Negative)
[2021-06-30 01:43] LABS: Troponin I < 0.012 ng/mL (0.01-0.034)
[2021-06-30] MEDS: propofoL 200 MG/20 ML VIAL 55 MG IV (01:44)
[2021-06-30] MEDS: APIXABAN 5 MG TABLET PO (01:56)
== END 2021-06-30 02:43 | disposition home or self-care (01) ==
PROVIDERS: Emergency Provider Emergency Medicine; PCP Student in an Organized Health Care Education/Training Program
DX: I48.91 Unspecified atrial fibrillation (principal); Z20.822 Contact with and (suspected) exposure to COVID-19
CPT/HCPCS: 36415; 80053; 82550; 83735; 84484; 85025; 87635; 92960; 93005; 93010; 99152; 99284; 99285; C9803; J2704

== ENCOUNTER 2021-10-09 11:03 | Emergency (ER) | payer OTHER, SELFPAY ==
[2019-03-23 16:24] VITALS: BMI 19.7
[2021-10-09] VITALS (11 sets, daily range): BP systolic 118–202; BP diastolic 56–87; PULSE 59–76; RESP 14–25; TEMP 37.1; O2SAT 96–100; BMI 24.5
--- NOTE | 2021-10-09 11:21 | DI.RAD.S_ITS ---
PROCEDURE: XR CHEST 1V INDICATIONS: chest pain TECHNIQUE: One view of the chest was acquired. COMPARISON: [facility], , CHEST 1 VIEW, 12/15/2015, 16:44. FINDINGS: Surgical changes and devices: None. Lungs and pleura: Lungs are clear. No pleural effusions or pneumothorax. Mediastinum: Mediastinal contours appear normal. Heart size is normal. Bones and chest wall: No suspicious bony lesions. Overlying soft tissues appear unremarkable. There is suggestion of a moderate-sized hiatal hernia. IMPRESSION: No acute cardiopulmonary pathology. Moderate-sized hiatal hernia. Dictated by: Chandler Little M.D. on 10/09/2021 at 12:25 Approved by: Chandler Little M.D. on 10/09/2021 at 12:30
[2021-10-09 11:44] LABS: Add Manual Diff / Slide Review NO; Basophils Absolute Auto 0 /uL (0-100); Basophils Percent Auto 0.8 % (0-2); Eosinophils Absolute Auto 0 /uL (0-450); Eosinophils Percent Auto 0.3 % (2-4); Hematocrit 44.1 % (36-46); Hemoglobin 14.6 g/dL (12.0-16.0); Lymphocytes Absolute Auto 1100 /uL (1100-4500); Lymphocytes Percent Auto 19.7 % (25-40); Mean Corpuscular HGB Conc 33.1 % (30-36); Mean Corpuscular Hemoglobin 28.3 PG (26-34); Mean Corpuscular Volume 85.6 fL (80-100); Monocytes Absolute Auto 300 /uL (0-900); Monocytes Percent Auto 5.1 % (3-14); Neutrophils Absolute Auto 4100 /uL (1500-7000); Neutrophils Percent Auto 74.1 % (50-75); Platelet Count 220 X10^3/uL (150-400); Red Blood Cell Count 5.15 X10^6/uL (4.0-5.2); Red Cell Distribution Width 14.3 % (11.6-14.8); White Blood Cell Count 5.6 X10^3/uL (4.5-11.0)
[2021-10-09 11:49] LABS: INR 1.3 (0.9-1.3); Prothrombin Time 14.2 SECONDS (10.1-12.7)
[2021-10-09 11:52] LABS: PTT Partial Thromboplastin Tim 48 SECONDS (26.4-36.2)
[2021-10-09 11:54] LABS: Alanine Aminotransferase 19 IU/L (<35); Albumin 4.5 g/dL (3.5-5.0); Albumin Globulin Ratio 1.4 (1.0-2.8); Alkaline Phosphatase 103 U/L (38-126); Aspartate Aminotransferase 32 IU/L (14-36); BUN Creatinine Ratio 20.4 (6-22); Bilirubin Total 0.9 mg/dL (0.2-1.3); Blood Urea Nitrogen 19 mg/dL (7-17); Calcium 9.3 mg/dL (8.4-10.2); Carbon Dioxide 30 mmol/L (22-32); Chloride 106 mmol/L (98-107); Creatine Kinase 48 U/L (30-135); Estimated Glomerular Filt Rate > 60 mL/min (>60); Globulin 3.2 g/dL (1.7-4.1); Glucose 100 mg/dL (80-110); HEMOLYSIS 24 (0-50); Lipase 118 U/L (23-300); Potassium 4.1 mmol/L (3.4-5.1); Sodium 143 mmol/L (137-145); Total Protein 7.7 g/dL (6.3-8.2)
[2021-10-09] MEDS: PROPARACAINE 0.5% OPHTH SOL 1 DROPS EYE-LEFT (12:00)
--- NOTE | 2021-10-09 12:03 | ED_ITS ---
HPI - General Adult <Loco Mann DO - Last Filed: 10/11/21 07:13> General Chief complaint: Hypertension Stated complaint: high bp pressure in left eye pulsing sounds in ear Time Seen by Provider: 10/09/21 11:46 Source: patient Mode of arrival: Ambulatory History of Present Illness HPI narrative: Patient is a 70-year-old female. Has a history of atrial fibrillation. Is on metoprolol and Eliquis for this. No prior diagnosis of high blood pressure. Over the past week she has had intermittent episodes of a pulsation in the left side of her head and left side of her year. She also states she is having some vision disturbances in her left eye. Initially it was only occasional however the past 24-48 hours it has become more consistent. Is difficult for her to describe the disturbance in her left eye but she states that it is a blurry vision. She does wear corrective lenses but no prior eye surgeries. No history of glaucoma nor cataracts. She denies any sinus congestion. No sore throat. She does have neuropathy otherwise no change in neurologic status in her upper and lower extremities. No chest pain. No shortness of breath. No headache. No sinus congestion. No skin changes. She went to the walk-in clinic and was sent to the emergency department for further evaluation. Related Data Home Medications Medication Instructions Recorded Confirmed metoprolol succinate 25 mg 37.5 mg PO BID 10/09/21 10/09/21 tablet,extended release 24 hr Previous Rx's Medication Instructions Recorded alprazolam 0.5 mg tablet 0.25 - 0.5 mg PO DAILY PRN #10 tab 06/21/20 apixaban 5 mg tablet (Eliquis) 5 mg PO BID #60 tab 06/30/21 lisinopril 10 mg tablet 10 mg PO DAILY #30 tab 10/09/21 Allergies Allergy/AdvReac Type Severity Reaction Status Date / Time Penicillins [PENICILLINS] Allergy Intermediate Rash Verified 10/09/21 11:17 metronidazole AdvReac Intermediate makes Verified 10/09/21 11:17 throat feel swollen, hard to swallow ciprofloxacin [From Cipro] AdvReac Mild Dizzy, Verified 10/09/21 11:17 disoriented Review of Systems <Loco Mann DO - Last Filed: 10/11/21 07:13> Review of Systems ROS Unobtainable: All systems reviewed & are unremarkable except as noted in HPI and below Patient History <Loco Mann DO - Last Filed: 10/11/21 07:13> Medical History Asthma Atrial fibrillation Benign essential HTN Diverticulitis large intestine Hemangioma of liver Hydronephrosis with urinary obstruction due to renal calculus Ileostomy in place Impaired vision Kidney stones Menopause Mixed hyperlipidemia Osteoporosis, unspecified Rectosigmoid cancer Sinus drainage Family History Father Cancer Social History household members: spouse Smoking Status: Never smoker alcohol intake: never substance use type: does not use Smoking Status: Never smoker alcohol intake frequency: holidays/special occasions only Substance Use Type: does not use Exam <Loco Mann DO - Last Filed: 10/11/21 07:13> Initial Vital Signs Initial Vital Signs: Vital Signs Temperature 98.7 F 10/09/21 11:17 Pulse Rate 68 10/09/21 11:17 Respiratory Rate 14 10/09/21 11:17 Blood Pressure 202/87 H 10/09/21 11:17 Pulse Oximetry 100 10/09/21 11:17 Const General: cooperative, healthy appearing, comfortable and well groomed HENMT Head: normal to inspection and normocephalic Ears: hearing grossly normal bilaterally and TM's normal bilaterally Nose: external nose normal Face and sinus: normal facial exam Throat: posterior oropharynx normal Other HENMT:: Some tenderness over the left temporal artery Eyes Eyelids: eyelids normal Pupils: PERRL EOM: EOM intact bilaterally Other: Intra-ocular pressure right eye 18, interocular pressure left eye 18 Chest Chest: normal inspection of the chest Resp Effort & Inspection: normal respiratory effort Auscultation: clear to auscultation bilaterally Cardio Rate: regular rate Rhythm: regular rhythm GI Inspection: normal to inspection and non-distended Skin General: no rashes or lesions noted Neuro General: patient alert, patient awake, patient oriented x3, tone normal and moves all extremities Cranial Nerves: CN's II-XI intact bilaterally Cognition: normal cognition Speech: speech normal Gait: normal gait Extrem General: normal to inspection and capillary refill normal Psych Appearance: grossly normal and well kempt <Max Vee DO - Last Filed: 10/10/21 00:53> Initial Vital Signs Initial Vital Signs: Vital Signs Temperature 98.7 F 10/09/21 11:17 Pulse Rate 68 10/09/21 11:17 Respiratory Rate 14 10/09/21 11:17 Blood Pressure 202/87 H 10/09/21 11:17 Pulse Oximetry 100 10/09/21 11:17 Scores <Loco Mann DO - Last Filed: 10/11/21 07:13> GCS [place] coma scale eye opening: Spontaneous Janet coma scale verbal response: Orientated [place] coma scale motor response: Obey commands [place] coma scale total score: 15 <Max Vee DO - Last Filed: 10/10/21 00:53> GCS [place] coma scale total score: 15 Course <Loco Mann DO - Last Filed: 10/11/21 07:13> Orders Ordered: Discontinued Medications Apixaban (Apixaban 5 Mg Tablet) 5 mg PO NOW ONE Stop: 10/09/21 17:04 Last Admin: 10/09/21 17:10 Dose: 5 mg Documented by: NADEEM Diazepam (Diazepam 10 Mg/2 Ml Syringe) 2 mg IV NOW ONE Stop: 10/09/21 14:16 Diazepam (Diazepam 5 Mg Tablet) 2.5 mg PO NOW ONE Stop: 10/09/21 14:16 Last Admin: 10/09/21 14:13 Dose: 2.5 mg Documented by: NADEEM Lisinopril (Lisinopril 10 Mg Tablet) 10 mg PO NOW ONE Stop: 10/09/21 20:47 Last Admin: 10/09/21 21:01 Dose: 10 mg Documented by: ANALILIA Metoprolol Succinate (Metoprolol Er 25 Mg Tablet) 25 mg PO NOW ONE Stop: 10/09/21 17:04 Last Admin: 10/09/21 17:10 Dose: 25 mg Documented by: NADEEM Metoprolol Succinate (Metoprolol Er 25 Mg Tablet) 12.5 mg PO NOW ONE Stop: 10/09/21 17:12 Last Admin: 10/09/21 17:24 Dose: 12.5 mg Documented by: NADEEM Proparacaine HCl (Proparacaine 0.5% Ophth Jessica) 1 drops EYE-LEFT NOW ONE Stop: 10/09/21 11:50 Last Admin: 10/09/21 12:00 Dose: 1 drops Documented by: BTONER Vital Signs Vital signs: Vital Signs - 8 hr 10/09/21 17:00 10/09/21 17:30 10/09/21 20:34 Pulse Rate 71 69 65 Respiratory Rate Blood Pressure 177/81 H 150/71 H 154/74 H Pulse Oximetry 99 98 10/09/21 20:35 10/09/21 21:00 10/09/21 21:30 Pulse Rate 65 63 63 Respiratory Rate 20 25 H Blood Pressure 154/74 H 130/62 118/56 L Pulse Oximetry 99 97 97 10/09/21 22:00 10/09/21 22:19 Pulse Rate 59 L 60 Respiratory Rate 18 18 Blood Pressure 121/59 L 122/60 Pulse Oximetry 96 99 <Max Vee DO - Last Filed: 10/10/21 00:53> Orders Ordered: Discontinued Medications Apixaban (Apixaban 5 Mg Tablet) 5 mg PO NOW ONE Stop: 10/09/21 17:04 Last Admin: 10/09/21 17:10 Dose: 5 mg Documented by: NADEEM Diazepam (Diazepam 10 Mg/2 Ml Syringe) 2 mg IV NOW ONE Stop: 10/09/21 14:16 Diazepam (Diazepam 5 Mg Tablet) 2.5 mg PO NOW ONE Stop: 10/09/21 14:16 Last Admin: 10/09/21 14:13 Dose: 2.5 mg Documented by: NADEEM Lisinopril (Lisinopril 10 Mg Tablet) 10 mg PO NOW ONE Stop: 10/09/21 20:47 Last Admin: 10/09/21 21:01 Dose: 10 mg Documented by: ANALILIA Metoprolol Succinate (Metoprolol Er 25 Mg Tablet) 25 mg PO NOW ONE Stop: 10/09/21 17:04 Last Admin: 10/09/21 17:10 Dose: 25 mg Documented by: NADEEM Metoprolol Succinate (Metoprolol Er 25 Mg Tablet) 12.5 mg PO NOW ONE Stop: 10/09/21 17:12 Last Admin: 10/09/21 17:24 Dose: 12.5 mg Documented by: NADEEM Proparacaine HCl (Proparacaine 0.5% Ophth Jessica) 1 drops EYE-LEFT NOW ONE Stop: 10/09/21 11:50 Last Admin: 10/09/21 12:00 Dose: 1 drops Documented by: BTONER Vital Signs Vital signs: Vital Signs - 8 hr 10/09/21 17:00 10/09/21 17:30 10/09/21 20:34 Pulse Rate 71 69 65 Respiratory Rate Blood Pressure 177/81 H 150/71 H 154/74 H Pulse Oximetry 99 98 10/09/21 20:35 10/09/21 21:00 10/09/21 21:30 Pulse Rate 65 63 63 Respiratory Rate 20 25 H Blood Pressure 154/74 H 130/62 118/56 L Pulse Oximetry 99 97 97 10/09/21 22:00 10/09/21 22:19 Pulse Rate 59 L 60 Respiratory Rate 18 18 Blood Pressure 121/59 L 122/60 Pulse Oximetry 96 99 Medical Decision Making <Loco Mann DO - Last Filed: 10/11/21 07:13> Lab Data Lab results reviewed: Yes I reviewed the patient's lab results. Result diagrams: 10/09/21 11:35 10/09/21 11:35 Labs: Lab Results 10/09/21 10/09/21 10/09/21 Range/Units 11:35 11:35 11:35 WBC 5.6 (4.5-11.0) X10^3/uL RBC 5.15 (4.0-5.2) X10^6/uL Hgb 14.6 (12.0-16.0) g/dL Hct 44.1 (36-46) % MCV 85.6 (80-100) fL MCH 28.3 (26-34) PG MCHC 33.1 (30-36) % RDW 14.3 (11.6-14.8) % Plt Count 220 (150-400) X10^3/uL Neut % (Auto) 74.1 (50-75) % Lymph % (Auto) 19.7 L (25-40) % [place] % (Auto) 5.1 (3-14) % Eos % (Auto) 0.3 L (2-4) % Baso % (Auto) 0.8 (0-2) % Neut # (Auto) 4100 (3447-6170) /uL Lymph # (Auto) 1100 (7436-8167) /uL [place] # (Auto) 300 (0-900) /uL Eos # (Auto) 0 (0-450) /uL Baso # (Auto) 0 (0-100) /uL ESR (0-20) MM/HR PT 14.2 H (10.1-12.7) SECONDS INR 1.3 (0.9-1.3) APTT 48 H D (26.4-36.2) SECONDS Sodium 143 (137-145) mmol/L Potassium 4.1 (3.4-5.1) mmol/L Chloride 106 (98-107) mmol/L Carbon Dioxide 30 (22-32) mmol/L BUN 19 H (7-17) mg/dL Creatinine 0.93 (0.52-1.04) mg/dL Estimated GFR > 60 (>60) mL/min BUN/Creatinine Ratio 20.4 (6-22) Glucose 100 (80-110) mg/dL Calcium 9.3 (8.4-10.2) mg/dL Magnesium 2.0 (1.6-2.3) mg/dL Total Bilirubin 0.9 (0.2-1.3) mg/dL AST 32 (14-36) IU/L ALT 19 (<35) IU/L Alkaline Phosphatase 103 (38-126) U/L Total Creatine Kinase 48 (30-135) U/L CK-MB (CK-2) TNP CK-MB (CK-2) Rel Index TNP Troponin I < 0.012 (0.01-0.034) ng/mL C-Reactive Protein (<1.0) mg/dL Total Protein 7.7 (6.3-8.2) g/dL Albumin 4.5 (3.5-5.0) g/dL Globulin 3.2 (1.7-4.1) g/dL Albumin/Globulin Ratio 1.4 (1.0-2.8) Lipase 118 (23-300) U/L 10/09/21 10/09/21 Range/Units 11:35 11:35 WBC (4.5-11.0) X10^3/uL RBC (4.0-5.2) X10^6/uL Hgb (12.0-16.0) g/dL Hct (36-46) % MCV (80-100) fL MCH (26-34) PG MCHC (30-36) % RDW (11.6-14.8) % Plt Count (150-400) X10^3/uL Neut % (Auto) (50-75) % Lymph % (Auto) (25-40) % [place] % (Auto) (3-14) % Eos % (Auto) (2-4) % Baso % (Auto) (0-2) % Neut # (Auto) (1626-1746) /uL Lymph # (Auto) (6201-1589) /uL [place] # (Auto) (0-900) /uL Eos # (Auto) (0-450) /uL Baso # (Auto) (0-100) /uL ESR 9 (0-20) MM/HR PT (10.1-12.7) SECONDS INR (0.9-1.3) APTT (26.4-36.2) SECONDS Sodium (137-145) mmol/L Potassium (3.4-5.1) mmol/L Chloride (98-107) mmol/L Carbon Dioxide (22-32) mmol/L BUN (7-17) mg/dL Creatinine (0.52-1.04) mg/dL Estimated GFR (>60) mL/min BUN/Creatinine Ratio (6-22) Glucose (80-110) mg/dL Calcium (8.4-10.2) mg/dL Magnesium (1.6-2.3) mg/dL Total Bilirubin (0.2-1.3) mg/dL AST (14-36) IU/L ALT (<35) IU/L Alkaline Phosphatase (38-126) U/L Total Creatine Kinase (30-135) U/L CK-MB (CK-2) CK-MB (CK-2) Rel Index Troponin I (0.01-0.034) ng/mL C-Reactive Protein 0.6 (<1.0) mg/dL Total Protein (6.3-8.2) g/dL Albumin (3.5-5.0) g/dL Globulin (1.7-4.1) g/dL Albumin/Globulin Ratio (1.0-2.8) Lipase (23-300) U/L Imaging Data Chest x-ray: Radiologist's Impression: [address] [address] XRay Report Signed Patient: Anel Calvin MR#: [id number] : 1950 Acct:[id number] Age/Sex: 70 / F Date of Service: 10/09/21 Loc: ED Accession Number: [id number] ?? Procedure: XR chest 1V Ordering Provider: Loco Mann D.O. PROCEDURE:? XR CHEST 1V ? INDICATIONS:? chest pain ? TECHNIQUE:? One view of the chest was acquired.? ? COMPARISON:? [facility], , CHEST 1 VIEW, 12/15/2015, 16:44. ? FINDINGS:? ? Surgical changes and devices:? None.? ? Lungs and pleura:? Lungs are clear.? No pleural effusions or pneumothorax.? ? Mediastinum:? Mediastinal contours appear normal.? Heart size is normal.? ? Bones and chest wall:? No suspicious bony lesions.? Overlying soft tissues appear unremarkable.? There is suggestion of a moderate-sized hiatal hernia. ? IMPRESSION:? No acute cardiopulmonary pathology.? Moderate-sized hiatal hernia. ? ? Dictated by: Chandler Little M.D. on 10/09/2021 at 12:25 ? ? Approved by: Chandler Little M.D. on 10/09/2021 at 12:30?? CT A/V brain: Radiologist's Impression: [address] [address] [address] Scan Report Signed Patient: Anel Calvin MR#: [id number] : 1950 Acct:[id number] Age/Sex: 70 / F Date of Service: 10/09/21 Loc: ED Accession Number: [id number] ?? Procedure: CT angio head Ordering Provider: Loco Mann D.O. PROCEDURE:? CT ANGIO HEAD ? INDICATIONS:? Pulsatile tinnitus left ear with left headache ? TECHNIQUE:? Precontrast 4.5 mm thick angled axial sections acquired from the foramen magnum to the vertex. ? After the administration of intravenous contrast, 1 mm thick sections acquired through the [place].? Postcontrast 4.5 mm thick sections then re- acquired from the foramen magnum to the vertex.? 10 mm thick afvnulq-hctgmukeu-ugqltucfie (MIP) reformats were acquired of the central intracranial vasculature.? For radiation dose reduction, the following was used:? automated exposure control, adjustment of mA and/or kV according to patient size.? ? ? COMPARISON:? None. ? FINDINGS:? Image quality:? Excellent.? ? Anterior circulation:? Intracranial internal carotid arteries are normal in flow. Atherosclerotic calcifications noted in the cavernous and clinoid segments of the internal carotid arteries which causes mild stenosis of the vessels.? ? The flow within the paired anterior cerebral arteries is normal and symmetric.? The flow within the middle cerebral arteries is normal and symmetric.? The anterior communicating artery is seen.? No aneurysms are seen.? ? Posterior circulation:? Visualized portions of the vertebral arteries dem onstrate normal caliber, and join to form a normal appearing basilar artery.? Flow within the posterior cerebral arteries is normal and symmetric.? Posterior cerebral artery variant anatomy noted.? No aneurysms are seen.? ? There is diminished postcontrast enhancement in the left transverse and sigmoid sinuses which could be due to congenital hypoplasia versus proximal thrombus.? Normal postcontrast enhancement noted in the superior sagittal sinus, straight sinus, right transverse sinus and right sigmoid sinus.? ? CSF spaces:? Ventricles are normal in shape.? Basal cisterns are patent.? No extra-axial fluid collections.? ? Brain:? There is diffuse cerebral volume loss.? There are mild periventricular and subcortical white matter chronic microvascular ischemic changes.? No midline raciel ft.? No intracranial bleeds or masses.? [place]-white matter interface appears intact.? ? Skull and face:? Calvarium and facial bones appear intact, without suspicious lesions.? ? Sinuses:? Visualized sinuses and mastoids are clear.? ? ? IMPRESSION:? ? 1. No acute intracranial disease process.? ? 2. 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 Recommend MRI of the brain with and without contrast for additional evaluation. ? 3. No arterial large vessel occlusion.? No vascular dissection or aneurysm. ? ? ? Dictated by: Sofya Durham MD, PhD on 10/09/2021 at 12:53 ? ? Approved by: Sofya Durham MD, PhD on 10/09/2021 at 13:08?? ECG Data Attestation: I personally reviewed and interpreted this ECG as follows: Interpretation: Sinus rhythm Ventricular rate is 70 Normal axis Normal QRS Normal QTC No ST T wave changes MDM Narrative Medical decision making narrative: Patient with left-sided pulsatile sensations in her left ear/tinnitus. Also having vision disturbances on the left side. She has no tenderness over the temporal artery. Her ESR and CRP are negative. Low suspicion for temporal arteritis. Patient's interocular pressure is 18 bilaterally. Low suspicion for glaucoma. Her visual acuity is noted and relatively unremarkable. There is no other signs of infection. Her HEENT exam does not give a definitive diagnosis. Blood pressure is elevated. She has no history of high blood pressure. This did improve without specific antihypertensive medications here in the ER. CT angiogram and venogram shows no signs of a mass. No signs a head bleed. No signs of aneurysm. Some filling deficits in the with dural sinuses there was some concern about thrombosis given her presentation, history of malignancy. She is on anticoagulation which makes this unlikely however if it happens to be a thrombosis she with the to further workup and change in treatment. MRI was ordered. While she was obtaining the MRI there was an issue with the machine and they were unable to complete the study. Radiology evaluated the images that were available he stated that they were nondiagnostic in nature. Evaluated transferring the patient for an MRI this evening however closest facility with MRI does not have capability after 630. Discussed the case with Dr. Vee who is the night ED physician. He will continue to follow up and evaluate and treat. <Max Vee, DO - Last Filed: 10/10/21 00:53> Lab Data Labs: Lab Results 10/09/21 10/09/21 10/09/21 Range/Units 11:35 11:35 11:35 WBC 5.6 (4.5-11.0) X10^3/uL RBC 5.15 (4.0-5.2) X10^6/uL Hgb 14.6 (12.0-16.0) g/dL Hct 44.1 (36-46) % MCV 85.6 (80-100) fL MCH 28.3 (26-34) PG MCHC 33.1 (30-36) % RDW 14.3 (11.6-14.8) % Plt Count 220 (150-400) X10^3/uL Neut % (Auto) 74.1 (50-75) % Lymph % (Auto) 19.7 L (25-40) % [place] % (Auto) 5.1 (3-14) % Eos % (Auto) 0.3 L (2-4) % Baso % (Auto) 0.8 (0-2) % Neut # (Auto) 4100 (9089-4170) /uL Lymph # (Auto) 1100 (8301-0688) /uL [place] # (Auto) 300 (0-900) /uL Eos # (Auto) 0 (0-450) /uL Baso # (Auto) 0 (0-100) /uL ESR (0-20) MM/HR PT 14.2 H (10.1-12.7) SECONDS INR 1.3 (0.9-1.3) APTT 48 H D (26.4-36.2) SECONDS Sodium 143 (137-145) mmol/L Potassium 4.1 (3.4-5.1) mmol/L Chloride 106 (98-107) mmol/L Carbon Dioxide 30 (22-32) mmol/L BUN 19 H (7-17) mg/dL Creatinine 0.93 (0.52-1.04) mg/dL Estimated GFR > 60 (>60) mL/min BUN/Creatinine Ratio 20.4 (6-22) Glucose 100 (80-110) mg/dL Calcium 9.3 (8.4-10.2) mg/dL Magnesium 2.0 (1.6-2.3) mg/dL Total Bilirubin 0.9 (0.2-1.3) mg/dL AST 32 (14-36) IU/L ALT 19 (<35) IU/L Alkaline Phosphatase 103 (38-126) U/L Total Creatine Kinase 48 (30-135) U/L CK-MB (CK-2) TNP CK-MB (CK-2) Rel Index TNP Troponin I < 0.012 (0.01-0.034) ng/mL C-Reactive Protein (<1.0) mg/dL Total Protein 7.7 (6.3-8.2) g/dL Albumin 4.5 (3.5-5.0) g/dL Globulin 3.2 (1.7-4.1) g/dL Albumin/Globulin Ratio 1.4 (1.0-2.8) Lipase 118 (23-300) U/L 10/09/21 10/09/21 Range/Units 11:35 11:35 WBC (4.5-11.0) X10^3/uL RBC (4.0-5.2) X10^6/uL Hgb (12.0-16.0) g/dL Hct (36-46) % MCV (80-100) fL MCH (26-34) PG MCHC (30-36) % RDW (11.6-14.8) % Plt Count (150-400) X10^3/uL Neut % (Auto) (50-75) % Lymph % (Auto) (25-40) % [place] % (Auto) (3-14) % Eos % (Auto) (2-4) % Baso % (Auto) (0-2) % Neut # (Auto) (8741-1597) /uL Lymph # (Auto) (0137-7315) /uL [place] # (Auto) (0-900) /uL Eos # (Auto) (0-450) /uL Baso # (Auto) (0-100) /uL ESR 9 (0-20) MM/HR PT (10.1-12.7) SECONDS INR (0.9-1.3) APTT (26.4-36.2) SECONDS Sodium (137-145) mmol/L Potassium (3.4-5.1) mmol/L Chloride (98-107) mmol/L Carbon Dioxide (22-32) mmol/L BUN (7-17) mg/dL Creatinine (0.52-1.04) mg/dL Estimated GFR (>60) mL/min BUN/Creatinine Ratio (6-22) Glucose (80-110) mg/dL Calcium (8.4-10.2) mg/dL Magnesium (1.6-2.3) mg/dL Total Bilirubin (0.2-1.3) mg/dL AST (14-36) IU/L ALT (<35) IU/L Alkaline Phosphatase (38-126) U/L Total Creatine Kinase (30-135) U/L CK-MB (CK-2) CK-MB (CK-2) Rel Index Troponin I (0.01-0.034) ng/mL C-Reactive Protein 0.6 (<1.0) mg/dL Total Protein (6.3-8.2) g/dL Albumin (3.5-5.0) g/dL Globulin (1.7-4.1) g/dL Albumin/Globulin Ratio (1.0-2.8) Lipase (23-300) U/L Imaging Data MRI: Radiologist's Impression: Launch?Image [address] [address] Magnetic Resonance Report Signed Patient: Anel Calvin MR#: [id number] : 1950 Acct:[id number] Age/Sex: 70 / F Date of Service: 10/09/21 Loc: ED Accession Number: [id number] ?? Procedure: MR head/brain wo/w con Ordering Provider: Loco Mann D.O. PROCEDURE:? MR HEAD/BRAIN WO/W CON ? INDICATIONS:? L pulsatile tinnitus recommend MRI after head CT ? TECHNIQUE:? Noncontrast axial T1 spin echo, axial T2 fast spin echo, sagittal and axial FLAIR, coronal T2 fast spin echo, axial gradient echo, axial diffusion and ADC through the brain.? After the administration of contrast, axial and coronal 3D VIBE or T1 spin echo with fat saturation through the brain.? ? COMPARISON:? [facility], CT, CT ANGIO HEAD, 10/09/2021, 12:37. ? FINDINGS:? ? Normal flow-related signal voids within the major intracranial arterial circulation and within the dural venous sinuses.? Normal contrast opacification/enhancement of the dural venous sinuses.? No findings to suggest dural venous sinus thrombosis. ? No restricted diffusion.? No significant brain parenchymal FLAIR signal abnormality.? No unexpected intracranial susceptibility or enhancement.? No mass effect or m idline shift.? Normal ventricular caliber and position. ? IMPRESSION: ? No evidence of dural venous sinus thrombosis or other significant intracranial abnormality ? ? Dictated by: Michael Duggan M.D. on 10/09/2021 at 20:21 ? ? Approved by: Michael Duggan M.D. on 10/09/2021 at 20:27 MDM Narrative Medical decision making narrative: Patient with left-sided pulsatile sensations in her left ear/tinnitus. Also having vision disturbances on the left side. She has no tenderness over the temporal artery. Her ESR and CRP are negative. Low suspicion for temporal arteritis. Patient's interocular pressure is 18 bilaterally. Low suspicion for glaucoma. Her visual acuity is noted and relatively unremarkable. There is no other signs of infection. Her HEENT exam does not give a definitive diagnosis. Blood pressure is elevated. She has no history of high blood pressure. This did improve without specific antihypertensive medications here in the ER. CT angiogram and venogram shows no signs of a mass. No signs a head bleed. No signs of aneurysm. Some filling deficits in the with dural sinuses there was some concern about thrombosis given her presentation, history of malignancy. She is on anticoagulation which makes this unlikely however if it happens to be a thrombosis she with the to further workup and change in treatment. MRI was ordered. While she was obtaining the MRI there was an issue with the machine a nd they were unable to complete the study. Radiology evaluated the images that were available he stated that they were nondiagnostic in nature. Evaluated transferring the patient for an MRI this evening however closest facility with MRI does not have capability after 630. Discussed the case with Dr. Vee who is the night ED physician. He will continue to follow up and evaluate and treat. 1899 (Mariusz) - received signout from Dr. Mann. I have reviewed the clinical course up until this point. Patient does state that she feels like her symptoms have improved each time her BP begins to dip and then worsen again when the pressures rise. 2021 - BP down in the 150s, patient's symptoms all but gone, very subtle swooshing still noted in L ear, but no visual change or fullness. . MRI is very reassuring and no mass, bleeding, or clot noted. We did discuss the likely relationship between blood pressure and her symptoms which has become more clear as the day has worn on. She takes metoprolol for rate control and heart rate is in the 60s, we discussed other options and will initiate lisinopril tonight with a short course of a prescription to her pharmacy of choice. She has been given extensive return precautions and has had questions answered to her apparent satisfaction Discharge Plan Departure Patient Disposition: Home Clinical Impression: Hypertension Instructions: DI for High Blood Pressure Activity Restrictions/Additional Instructions: *You have been diagnosed with [hypertension. As we discussed, your lab work, imaging, EKG are all very reassuring. *What to do: *Please continue to take your regular medications as directed. [x] New medication prescriptions sent to your pharmacy: [ [facility]] [ ] New medication written as a paper prescription [ ] No new medications given *Please follow up with your primary care provider in 2-3 days, call for an appointment. Let them know you were seen in the Emergency Department and that we ask that you be seen in follow up. We will electronically transmit a record of today's note if your PCP is in our system *If you do not have a primary care provider please contact the [facility] Resource line at [phone]. They will ask some questions about your medical history and help get you set up with a doctor in the community. *Return to Emergency Department if you should have any new, worsening or concerning symptoms, such as [fever greater than 101 F, shaking chills, worsening pain, persistent vomiting or other bothersome symptoms] Prescriptions: New lisinopril 10 mg tablet 10 mg PO DAILY Qty: 30 0RF No Action alprazolam 0.5 mg tablet 0.25 - 0.5 mg PO DAILY PRN (Reason: anxiety) Qty: 10 5RF Eliquis 5 mg tablet 5 mg PO BID Qty: 60 0RF metoprolol succinate 25 mg tablet extended release 24 hr 37.5 mg PO BID 0RF Label Comments: TAKE 1.5 TABLETS BY MOUTH TWICE DAILY MORNING AND EVENING Referrals: Porter Vallecillo MD [Primary Care Provider] -
[2021-10-09 12:05] LABS: Troponin I < 0.012 ng/mL (0.01-0.034)
--- NOTE | 2021-10-09 12:12 | DI.CT.S_ITS ---
PROCEDURE: CT ANGIO HEAD INDICATIONS: Pulsatile tinnitus left ear with left headache TECHNIQUE: Precontrast 4.5 mm thick angled axial sections acquired from the foramen magnum to the vertex. After the administration of intravenous contrast, 1 mm thick sections acquired through the [place]. Postcontrast 4.5 mm thick sections then re-acquired from the foramen magnum to the vertex. 10 mm thick myhbicv-laebsemrm-muafdjdowa (MIP) reformats were acquired of the central intracranial vasculature. For radiation dose reduction, the following was used: automated exposure control, adjustment of mA and/or kV according to patient size. COMPARISON: None. FINDINGS: Image quality: Excellent. Anterior circulation: Intracranial internal carotid arteries are normal in flow. Atherosclerotic calcifications noted in the cavernous and clinoid segments of the internal carotid arteries which causes mild stenosis of the vessels. The flow within the paired anterior cerebral arteries is normal and symmetric. The flow within the middle cerebral arteries is normal and symmetric. The anterior communicating artery is seen. No aneurysms are seen. Posterior circulation: Visualized portions of the vertebral arteries demonstrate normal caliber, and join to form a normal appearing basilar artery. Flow within the posterior cerebral arteries is normal and symmetric. Posterior cerebral artery variant anatomy noted. No aneurysms are seen. There is diminished postcontrast enhancement in the left transverse and sigmoid sinuses which could be due to congenital hypoplasia versus proximal thrombus. Normal postcontrast enhancement noted in the superior sagittal sinus, straight sinus, right transverse sinus and right sigmoid sinus. CSF spaces: Ventricles are normal in shape. Basal cisterns are patent. No extra-axial fluid collections. Brain: There is diffuse cerebral volume loss. There are mild periventricular and subcortical white matter chronic microvascular ischemic changes. No midline shift. No intracranial bleeds or masses. Arguello-white matter interface appears intact. Skull and face: Calvarium and facial bones appear intact, without suspicious lesions. Sinuses: Visualized sinuses and mastoids are clear. IMPRESSION: 1. No acute intracranial disease process. 2. 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 Recommend MRI of the brain with and without contrast for additional evaluation. 3. No arterial large vessel occlusion. No vascular dissection or aneurysm. Dictated by: Sofya Durham MD, PhD on 10/09/2021 at 12:53 Approved by: Sofya Durham MD, PhD on 10/09/2021 at 13:08
--- NOTE | 2021-10-09 12:27 | PC.NURSE ---
pt states for the last week she has had intermittent pulsating in her left ear and eye, for the last 2 days its been constant.
[2021-10-09 12:53] LABS: C-Reactive Protein Quant 0.6 mg/dL (<1.0)
[2021-10-09 13:01] LABS: Erythrocyte Sedimentation Rate 9 MM/HR (0-20)
--- NOTE | 2021-10-09 13:11 | DI.MRI.S_ITS ---
PROCEDURE: MR HEAD/BRAIN WO/W CON INDICATIONS: L pulsatile tinnitus recommend MRI after head CT TECHNIQUE: Noncontrast axial T1 spin echo, axial T2 fast spin echo, sagittal and axial FLAIR, coronal T2 fast spin echo, axial gradient echo, axial diffusion and ADC through the brain. After the administration of contrast, axial and coronal 3D VIBE or T1 spin echo with fat saturation through the brain. COMPARISON: [facility], CT, CT ANGIO HEAD, 10/09/2021, 12:37. FINDINGS: Normal flow-related signal voids within the major intracranial arterial circulation and within the dural venous sinuses. Normal contrast opacification/enhancement of the dural venous sinuses. No findings to suggest dural venous sinus thrombosis. No restricted diffusion. No significant brain parenchymal FLAIR signal abnormality. No unexpected intracranial susceptibility or enhancement. No mass effect or midline shift. Normal ventricular caliber and position. IMPRESSION: No evidence of dural venous sinus thrombosis or other significant intracranial abnormality Dictated by: Michael Duggan M.D. on 10/09/2021 at 20:21 Approved by: Michael Duggan M.D. on 10/09/2021 at 20:27
[2021-10-09] MEDS: diazePAM 5 MG TABLET 2.5 MG PO (14:13)
[2021-10-09] MEDS: APIXABAN 5 MG TABLET PO (17:10)
[2021-10-09] MEDS: METOPROLOL ER 25 MG TABLET PO (17:10)
[2021-10-09] MEDS: METOPROLOL ER 25 MG TABLET 12.5 MG PO (17:24)
[2021-10-09] MEDS: lisinopriL 10 MG TABLET PO (21:01)
== END 2021-10-09 22:20 | disposition home or self-care (01) ==
PROVIDERS: Emergency Medicine; Emergency Provider Emergency Medicine; PCP Student in an Organized Health Care Education/Training Program
DX: I10 Essential (primary) hypertension (principal); R51.9 Headache, unspecified; Z79.01 Long term (current) use of anticoagulants
CPT/HCPCS: 36415; 70496; 70553; 71045; 80053; 82550; 83690; 83735; 84484; 85025; 85610; 85651; 85730; 86140; 93005; 99284; A9579; Q9967